=== PATIENT | female | born 1960 | race Caucasian/White ===

== ENCOUNTER 2020-06-07 12:13 | Observation (INO) ==
[2020-06-07] MEDS ORDERED: SODIUM CHLORIDE 0.9% 1000ML 1,000 ML IV ONE ×2 (12:47→14:25)
--- NOTE | 2020-06-07 13:09 | Emergency Department Note ---
Impression & Plan Acute hemorrhagic colitis, Acute dehydration, Nausea & vomiting, Hypokalemia ED Provider Note NAME: CAILIN JENNINGS AGE: 59 SEX: F : 1960 ARRIVES VIA: Walk-In INFORMANT: Patient ED PROVIDER(S): Trevor Mcbride DO CHIEF COMPLAINT: N/V/d HPI: Patient is a 59-year-old female who presents to the ER with nausea, vomiting, diarrhea and some dull achiness. All of her symptoms started around May 15. She notes she is going to the bathroom about 5-6 times a day. Is a very small amount at this time. Vomiting started about 2 weeks ago. She was seen in the ER and treated with Zofran and sent home. Previous history includes partial hysterectomy and appendectomy in the . She denies any recent trips or travel. No recent antibiotics with the exception of one back in March. No cough or runny nose. No chest pain or shortness of breath. No other exacerbating or remitting factors. Denies any dysuria urgency or frequency. When she is putting out about a half a teaspoon to a teaspoon of blood per bowel movement. She has vomited multiple times today. She believes she is only keeping down a small amount of liquids. ROS: See above HPI for pertinent positives & negatives. A total of 10 systems reviewed and were otherwise negative. PAST MEDICAL HISTORY:See Below PAST SURGICAL HISTORY:See Below FAMILY HISTORY:See Below SOCIAL HISTORY:See Below HOME MEDICATIONS:See Below ALLERGIES:See Below VITALS:See Below PHYSICAL EXAMINATION: GENERAL: Sitting up in bed, alert, well appearing, well nourished, no distress, non-toxic EYE EXAM: normal conjunctiva. OROPHARYNX: mask in place NECK: supple, no nuchal rigidity, no adenopathy, non-tender LUNGS: Clear to auscultation. Normal chest wall mechanics HEART: no murmurs, S1 normal and S2 normal ABDOMEN: abdomen soft, non-tender, normo-active bowel sounds, no masses, no rebound or guarding. UPPER EXTREMITIES: upper extremities are grossly normal. LOWER EXTREMITIES: No pitting edema. NEURO EXAM: Normal sensorium, cranial nerves II-XII grossly intact, normal speech, no gross weakness of arms, no gross weakness of legs. MEDICAL DECISION MAKING: Patient is a 59-year-old female who was seen here a week ago for nausea vomiting and diarrhea. She has been having blood in her stool. She had blood work done and CT abdomen pelvis which was fairly unremarkable with exception of a colitis. She had stool cultures which were negative. C. difficile was not performed. Vitals were stable. Patient was given IV fluids and IV Zofran. Labs today showed no significant leukocytosis or anemia. Platelets were elevated at 497. BMP with mild hypokalemia 2.8. Creatinine was appropriate. Bilirubin LFTs and lipase was unremarkable. UA was negative. was negative. Covid was negative. CT abdomen pelvis shows the colitis is persistent. Patient was given Phenergan as well as Zofran and IV fluids. She was updated bedside. She still is not feeling well. As she cannot keep anything down and this is a repeat visit do feel is reasonable to admit her at this time with the hemorrhagic colitis and unable to tolerate oral liquids. Patient was given IV potassium while in the ER for the hypokalemia. Triage Nursing notes reviewed. Prior medical records reviewed Vital Signs: reviewed and remarkable for tachy Differential diagnosis: Differential diagnoses includes but is not limited to gastritis, peptic ulcer disease, GERD, gallbladder disease, pancreatitis, small bowel obstruction, acute coronary syndrome, pericarditis, ischemic bowel, irritable bowel disease, irritable bowel syndrome, appendicitis, diverticulitis, malignancy, hernia, urinary tract infection, torsion, /ectopic (if female), perforation, trauma, infectious. ER treatment provided: See below Diagnostics interpreted by me: ECG: none Cardiac Monitoring: An order was placed for continuous cardiac monitoring. The monitor shows a rate of 110 with sinus rhythm. Laboratory studies: As stated above and show below. Imaging studies: CT angio of the abdomen pelvis shows no acute pathology with exception of a colitis Consultation(s): Discussed with hospitalist for further evaluation ED COURSE: Procedures: none Critical Care: None Past Med/Surg History Social History Smoking Status: Never smoker Feels Safe at Home: Yes Allergies Allergies Allergy/AdvReac Type Severity Reaction Status Date / Time Penicillins Allergy Intermediate POSSIBLE Unverified 06/07/20 14:03 ALLERGY Home Meds Previous Rx's Medication Instructions Recorded ondansetron 4 - 8 mg PO Q8H PRN #14 tab 06/01/20 Results & Data (ED) Vital Signs Vital Signs - 24 hr 06/07/20 12:35 06/07/20 13:18 12/06/20 14:14 Temperature 37.1 C Temperature Source Oral Pulse Rate 115 H Pulse Rate [Finger] 84 Pulse Rate from SpO2 Sensor Pulse Rhythm [Finger] Regular Pulse Strength [Finger] Normal Respiratory Rate 20 18 Respiratory Effort / Characteristics Non-Labored Spontaneous Non-Labored Spontaneous Respiratory Depth Normal Normal Respiratory Pattern Regular Regular Blood Pressure 124/87 Blood Pressure [Left Arm] 120/80 Blood Pressure Mean 99 Blood Pressure Mean [Left Arm] 93 Blood Pressure Position [Left Arm] Lying Pulse Oximetry 96 95 Oxygen Delivery Method Room Air Room Air Room Air Sepsis Recent Fever Within 48 Hours No Sepsis New/Unexplained Change in Mental Status N/A Sepsis Action Taken by Nursing No Action Required 06/07/20 14:39 06/07/20 14:42 06/07/20 14:50 Temperature Temperature Source Pulse Rate 83 85 84 Pulse Rate [Finger] Pulse Rate from SpO2 Sensor 84 85 84 Pulse Rhythm [Finger] Pulse Strength [Finger] Respiratory Rate 13 17 16 Respiratory Effort / Characteristics Respiratory Depth Respiratory Pattern Blood Pressure 127/87 Blood Pressure [Left Arm] Blood Pressure Mean 105 Blood Pressure Mean [Left Arm] Blood Pressure Position [Left Arm] Pulse Oximetry 96 97 97 Oxygen Delivery Method Room Air Room Air Room Air Sepsis Recent Fever Within 48 Hours Sepsis New/Unexplained Change in Mental Status Sepsis Action Taken by Nursing 06/07/20 15:00 06/07/20 15:01 06/07/20 15:10 Temperature Temperature Source Pulse Rate 85 89 86 Pulse Rate [Finger] Pulse Rate from SpO2 Sensor 85 89 86 Pulse Rhythm [Finger] Pulse Strength [Finger] Respiratory Rate 10 L 16 16 Respiratory Effort / Characteristics Respiratory Depth Respiratory Pattern Blood Pressure 126/83 Blood Pressure [Left Arm] Blood Pressure Mean 103 Blood Pressure Mean [Left Arm] Blood Pressure Position [Left Arm] Pulse Oximetry 98 97 97 Oxygen Delivery Method Room Air Room Air Room Air Sepsis Recent Fever Within 48 Hours Sepsis New/Unexplained Change in Mental Status Sepsis Action Taken by Nursing 06/07/20 15:20 06/07/20 15:30 06/07/20 15:31 Temperature Temperature Source Pulse Rate 86 82 82 Pulse Rate [Finger] Pulse Rate from SpO2 Sensor 86 81 82 Pulse Rhythm [Finger] Pulse Strength [Finger] Respiratory Rate 17 15 19 Respiratory Effort / Characteristics Respiratory Depth Respiratory Pattern Blood Pressure 118/77 Blood Pressure [Left Arm] Blood Pressure Mean 87 Blood Pressure Mean [Left Arm] Blood Pressure Position [Left Arm] Pulse Oximetry 98 96 95 Oxygen Delivery Method Room Air Room Air Room Air Sepsis Recent Fever Within 48 Hours Sepsis New/Unexplained Change in Mental Status Sepsis Action Taken by Nursing 06/07/20 15:40 06/07/20 15:52 06/07/20 16:00 Temperature Temperature Source Pulse Rate 82 88 81 Pulse Rate [Finger] Pulse Rate from SpO2 Sensor 82 81 Pulse Rhythm [Finger] Pulse Strength [Finger] Respiratory Rate 22 20 21 Respiratory Effort / Characteristics Respiratory Depth Respiratory Pattern Blood Pressure 126/85 Blood Pressure [Left Arm] Blood Pressure Mean 91 Blood Pressure Mean [Left Arm] Blood Pressure Position [Left Arm] Pulse Oximetry 98 95 Oxygen Delivery Method Room Air Room Air Room Air Sepsis Recent Fever Within 48 Hours Sepsis New/Unexplained Change in Mental Status Sepsis Action Taken by Nursing 06/07/20 16:01 Temperature Temperature Source Pulse Rate 88 Pulse Rate [Finger] Pulse Rate from SpO2 Sensor 85 Pulse Rhythm [Finger] Pulse Strength [Finger] Respiratory Rate 17 Respiratory Effort / Characteristics Respiratory Depth Respiratory Pattern Blood Pressure Blood Pressure [Left Arm] Blood Pressure Mean Blood Pressure Mean [Left Arm] Blood Pressure Position [Left Arm] Pulse Oximetry 95 Oxygen Delivery Method Room Air Sepsis Recent Fever Within 48 Hours Sepsis New/Unexplained Change in Mental Status Sepsis Action Taken by Nursing Laboratory Data Result diagrams: 06/07/20 13:10 06/07/20 13:10 Lab Results 06/07/20 06/07/20 Range/Units 13:10 13:10 WBC 10.65 (4.8-10.8) K/uL RBC 4.64 (4.2-5.4) M/uL Hgb 13.8 (12.0-16.0) g/dL Hct 39.7 (37-47) % MCV 85.6 (80-100) fL MCH 29.7 (25-34) pg MCHC 34.8 (32-36) g/dL RDW Std Deviation 38.9 (36.4-46.3) fL RDW Coeff of Crystal 12.4 (11.5-14.5) % Plt Count 497 H (130-400) K/uL MPV 9.9 (7.4-10.4) fL Immature Gran % (Auto) 0.4 % Neut % (Auto) 78.3 % Lymph % (Auto) 10.6 % [place] % (Auto) 10.0 % Eos % (Auto) 0.6 % Baso % (Auto) 0.1 % Neut # (Auto) 8.35 H (1.4-6.5) K/uL Lymph # (Auto) 1.13 L (1.2-3.4) K/uL [place] # (Auto) 1.06 H (0.11-0.59) K/uL Eos # (Auto) 0.06 (0-0.5) K/uL Baso # (Auto) 0.01 (0-0.2) K/uL Immature Gran # (Auto) 0.04 H (0.00-0.02) K/uL Sodium 135 L (136-145) mmol/L Potassium 2.8 L (3.5-5.1) mmol/L Chloride 95 L (98-107) mmol/L Carbon Dioxide 28 (21-32) mmol/L Anion Gap 12.0 H (3-11) BUN 7 (7-18) mg/dl Creatinine 0.73 (0.6-1.2) mg/dl Est Cr Clr Drug Dosing 75.9 ml/min Est GFR ( Amer) 104.5 Est GFR (Non-Af Amer) 90.1 BUN/Creatinine Ratio 9.7 L (10-20) Glucose 104 H (70-99) mg/dl Calcium 8.7 (8.5-10.1) mg/dl Total Bilirubin 0.4 (0.2-1) mg/dl AST 12 L (15-37) U/L ALT 15 (12-78) U/L Alkaline Phosphatase 72 (45-117) U/L Total Protein 7.7 (6.4-8.2) gm/dl Albumin 2.8 L (3.4-5.0) gm/dl Globulin 4.9 H (2.5-4.0) gm/dl Albumin/Globulin Ratio 0.6 L (0.9-2) Lipase 92 (73-393) U/L Administered Medications Discontinued Medications Sodium Chloride (Nss 1000ml) 1,000 mls @ 999 mls/hr IV .Q1H1M ONE Stop: 06/07/20 13:47 Last Infusion: 06/07/20 15:36 Dose: 0 mls/hr Documented by: [id number] Admin: 06/07/20 14:21 Dose: 999 mls/hr Documented by: [id number] Sodium Chloride (Nss 1000ml) 1,000 mls @ 999 mls/hr IV .Q1H1M ONE Stop: 06/07/20 15:25 Last Infusion: 06/07/20 16:30 Dose: 0 mls/hr Documented by: [id number] Admin: 06/07/20 15:00 Dose: 999 mls/hr Documented by: [id number] Promethazine HCl (Phenergan) 12.5 mg in 50.5 mls @ 202 mls/hr IV NOW STA Stop: 06/07/20 15:35 Last Infusion: 06/07/20 16:30 Dose: 0 mls/hr Documented by: [id number] Admin: 06/07/20 15:51 Dose: 202 mls/hr Documented by: [id number] Magnesium Sulfate/Dextrose (Magnesium Sulfate / D5w) 1 gm in 100 mls @ 100 mls/hr IV NOW STA Stop: 06/07/20 16:20 Last Infusion: 06/07/20 17:12 Dose: 0 mls/hr Documented by: [id number] Admin: 06/07/20 15:58 Dose: 100 mls/hr Documented by: [id number] Potassium Chloride (K Ryan / Wtr) 10 meq in 100 mls @ 100 mls/hr IV Q1H LAVERNE Stop: 06/07/20 17:29 Last Admin: 06/07/20 18:25 Dose: 100 mls/hr Documented by: [id number] Infusion: 06/07/20 18:24 Dose: 0 mls/hr Documented by: [id number] Admin: 06/07/20 17:18 Dose: 100 mls/hr Documented by: [id number] Ioversol (Optiray 320 125ml) 120 ml IV ONCE ONE Stop: 06/07/20 14:16 Last Admin: 06/07/20 14:15 Dose: 120 ml Documented by: [id number] Discharge Plan Visit Data Chief Complaint: Vomiting Stated Complaint: NOT ABLE TO EAT, VOMITING ED Provider: Trevor Mcbride Discharge Problem: Acute hemorrhagic colitis, Acute dehydration, Nausea & vomiting, Hypokalemia Patient Disposition: Admitted As Inpatient Discharge Instructions Interventions: ED Discharge Assessment Last Done: 06/07/20 18:56 Discharge Problem: Nausea & vomiting Qualifiers: Vomiting type: unspecified Vomiting Intractability: unspecified Qualified Code(s): R11.2 - Nausea with vomiting, unspecified
[2020-06-07 13:22] LABS: Basophils # (auto) 0.01 K/uL (0-0.2); Basophils % (auto) 0.1 %; Eosinophils # (auto) 0.06 K/uL (0-0.5); Eosinophils % (auto) 0.6 %; Hematocrit (blood only) 39.7 % (37-47); Hemoglobin 13.8 g/dL (12.0-16.0); Immature Granulocytes # (auto) 0.04 K/uL (0.00-0.02); Immature Granulocytes % (auto) 0.4 %; Lymphocytes # (auto) 1.13 K/uL (1.2-3.4); Lymphocytes % (auto) 10.6 %; Mean Corpuscular Hemoglobin 29.7 pg (25-34); Mean Corpuscular Hgb Conc 34.8 g/dL (32-36); Mean Corpuscular Volume 85.6 fL (80-100); Mean Platelet Volume 9.9 fL (7.4-10.4); Monocytes # (auto) 1.06 K/uL (0.11-0.59); Neutrophils # (auto) 8.35 K/uL (1.4-6.5); Neutrophils % (auto) 78.3 %; Platelet Count 497 K/uL (130-400); RDW Coefficient of Variation 12.4 % (11.5-14.5); RDW Standard Deviation 38.9 fL (36.4-46.3); Red Blood Count 4.64 M/uL (4.2-5.4); White Blood Count 10.65 K/uL (4.8-10.8)
[2020-06-07 13:39] LABS: Albumin Level 2.8 gm/dl (3.4-5.0); BUN Creatinine Ratio 9.7 (10-20); Calcium 8.7 mg/dl (8.5-10.1); Creatinine Clr Calc Pharmacy 75.9 ml/min; Est GFR (African American) 104.5; Est GFR (Non-African American) 90.1; Potassium 2.8 mmol/L (3.5-5.1)
[2020-06-07 13:42] LABS: Albumin Globulin Ratio 0.6 (0.9-2); Bilirubin,Total 0.4 mg/dl (0.2-1); Globulin 4.9 gm/dl (2.5-4.0); Total Protein 7.7 gm/dl (6.4-8.2)
[2020-06-07] MEDS ORDERED: OPTIRAY 320 125ml IV ONE (14:15)
--- NOTE | 2020-06-07 14:40 | CT Scan Report ---
CT angio abdomen pelvis w con CLINICAL HISTORY: Hemorrhagic colitis with persistent abdominal pain. COMPARISON STUDY: CT of the abdomen and pelvis June 01, 2020. TECHNIQUE: Helical axial images of the abdomen and pelvis were obtained during arterial phase followi ng intravenous injection of 120 cc Optiray 320 IV. Sagittal and coronal reconstructions were viewed a s well as maximal intensity projections on an independent 3-D workstation. Automated exposure control was utilized for the study. A dose lowering technique was utilized adhering to the principles of [place] IVETTE. FINDINGS: Lung bases are unremarkable. Bilateral breast implants are partially imaged. No pneumatosis , free air or portal venous gas is present. Arterial phase images of the liver, spleen, adrenal gland s and pancreas are unremarkable. There is no peripancreatic or pericholecystic infiltration. There is no biliary or pancreatic ductal dilatation. Note is made of a 2 mm calculus within lower pole of the right kidney. There is a right renal parapelvic cysts. There is no hydronephrosis. The appendix is n ot visualized. Note is made of persistent moderate wall thickening of the hepatic flexure of the colo n, transverse colon, descending colon, sigmoid colon and rectum. There is evidence for hyperemia. The re is mucosal hyperenhancement. Findings are similar to prior CT of June 01, 2020. No free air or abscess is present. The caliber of the abdominal aorta is normal. There is minimal plaque of the abd ominal aorta. Note is made of narrowing of the proximal celiac axis and the left gastric artery which arises from the abdominal aorta. 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 This finding is not acute. The bilateral renal arteries are patent. The superior mesenteric artery and inferior mesen teric artery are patent. The bilateral common iliac, external iliac and common femoral arteries are p atent. There is trace fluid within the pelvis. IMPRESSION: 1. Persistent moderate wall thickening and evidence for hyperemia involving the transverse colon, karla cending colon, sigmoid colon and rectum, similar to CT of June 01, 2020. This represents a nonspe cific proctocolitis. 2. Normal caliber abdominal aorta. Patent mesenteric vessels. 3. Moderate narrowing of the proximal celiac axis and left gastric artery which arises from the abdom inal aorta. This is due to the median arcuate ligament and is not acute. ACT 112: Negative or not required by law. Electronically signed by: Doni Joiner M.D. 06/07/2020 2:38 PM
[2020-06-07] MEDS ORDERED: MAGNESIUM SULFATE / D5W 1 GM/100 ML BAG IV STA (15:21)
[2020-06-07] MEDS ORDERED: PROMETHAZINE 12.5 MG/50.5 ML BAG IV STA (15:21)
--- NOTE | 2020-06-07 15:59 | History & Physical Report ---
Date of Service June 07, 2020 Assessment & Plan (1) Acute hemorrhagic colitis: Do not suspect ischemic colitis as CT angiogram abdomen/pelvis without stenoses. Stool cultures from 06/01 as well as ova and parasites are negative. C. difficile negative here. Could be IBD versus infectious cause. Is afebrile, no leukocytosis. - Admit to med tele for obs - Cont NSS + KCl 20 meq at 100 ml/hr x 1 d - Hgb stable at 13.8. was 13.5 on 06/01. - Consult GI - [facility], previously had colonoscopy by Dr. Zhong 4 years ago - Follow am labs for electrolytes - Cont compazine IV prn nausea; QTC is prolonged on ECG so will avoid Zofran for now - Repeat stool studies with stool culture, O&P, fecal leukocytes, cdiff was neg - Checking COVID stat with sx including significant abdominal c/o, as well as ddimer elevation. - CTA of the chest is negative from 06/01 after seeing an elevated Ddimer of 7580 (2) Nausea & vomiting: - Worsening, as above. 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 Follows here with [facility]. (6) Rheumatoid arthritis: - hx of such for > 5 years, not on any biological agents, or NSAIDS. - Does not follow with rheum as an outpatient (7) DVT prophylaxis: DVT ppx: - teds, scds, no chemical anticoagulation in setting of acute GI bleed CODE: Full Dispo: From home, likely to remain in the hospital x 1-2 days History of Present Illness Primary Care Provider: Blaire Lorenzo DO This is a 59 female with PMHx of history of DCIS in 2014 s/p bilateral mastectomies without chemo or xrt, rheumatoid arthritis, hx of hysterectomy d/t fibroid in 1987, appendectomy in 2004, another laparoscopic fibroid removal in 2004. Pt presented to the ER on 06/01/2020 for complaints of nausea, vomiting, diarrhea with BRBPR and was evaluated, but did not want to be admitted at that point in time. Her CT abdomen pelvis showed nonspecific colitis. She went home with p.o. Zofran and instructed to try a brat diet. She reports that she ran out of the Zofran, but when she got it refilled by the ER provider it was not under the tongue, and that this tablet was extremely foul tasting and she felt that this made her more nauseous. She has not been using that Zofran since being home. Since then she has not been feeling better, feels her nausea and vomiting is worse as well as having very poor p.o. intake. Feels weak, increasing fatigue. She reports she continues to have worsening abdominal complaints, and passes about 1 tablespoon of bright red blood with stools, which occurs on average 10x per day. Denies dark tarry stools of hematemesis. Denies NSAID or alcohol use, and takes no medication routinely, only Tylenol arthritis occasionally. Denies lightheadedness, dizziness, fever, chills, sweats. Patient lives at home with her . She denies any recent antibiotic use. Pt had colonoscopy about 4 years ago with [facility] by Dr. Zhong, at that time she remembers being told there was a large vessel in the colon that may have been a source of bleeding but no other abnormalities. Pt denies known COVID-19 exposure, fever, chills, respiratory symptoms. Patient reports she has had bright red blood per rectum off and on for many years, and occasionally has lower abdominal pains. She has never had anything like her current symptoms. Denies fevers/sweats/chills. She has lost 2 more kilograms of body weight since her ER visit 6 days ago. Her stool studies from last ER visit are all negative. C. difficile is negative here. Her potassium was quite low at 2.8, and sodium was mildly low at 135. Hemoglobin was normal at 13.8. Covid-[address] angiogram abdomen is without evidence of mesenteric stenoses, but again with colitis similar to previous. She will be admitted for intractable nausea/vomiting/diarrhea with bright red blood per rectum and colitis ongoing for 2 to 3 weeks, as well as hypokalemia. Allergies Allergy/AdvReac Type Severity Reaction Status Date / Time Penicillins Allergy Intermediate POSSIBLE Unverified 06/07/20 14:03 ALLERGY Home Medications Medication Instructions Recorded Confirmed Type ondansetron 4 - 8 mg PO Q8H PRN #14 tab 06/01/20 06/07/20 Rx Past Med/Surg History Medical History Breast cancer Fibroid tumor Surgical History H/O bilateral mastectomy H/O: hysterectomy History of appendectomy History of breast reconstruction Family History Mother Leukemia Breast cancer Father History of open heart surgery Brother Stroke Hypertension Social History Smoking Status: Never smoker Second Hand Exposure: No; Do You Dip or Chew Tobacco: No; Tobacco Cessation Education Requested by Patient: No Hx Alcohol Use: No Hx Substance Use: No Preferred Language: Yoruba Communication Ability: Effective [employer] C[employer] Farmer Required: No Beliefs That Will Affect Care: None Current Living Situation: Spouse Other Information That Helps Us Care for You: No Feels Safe at Home: Yes Safety Concerns: Feels Safe At This Time Assistive Devices: Apnea Monitor Review of Systems Review of Systems: Constitutional: No fever, sweats or chills Eyes: No diplopia, no worsening or blurred vision ENT: normal hearing, no trouble swallowing, + dry mouth Respiratory: No cough, sputum, dyspnea at rest or on exertion Cardiovascular: No chest pain, tightness or palpitations Abdomen: As per HPI. Musculoskeletal: No joint pain, calf pain, swelling Neurologic: +generalized weakness, no numbness/tingling, or balance problems Psychiatric: No anxiety or depression Skin: No rash or itch Physical Exam Physical Exam: General: awake, alert, no apparent distress, + fatigue Head: Normocephalic, atraumatic ENT: PERRL, EOMI, no pharyngeal exudate, +mucous membranes dry Chest: Clear to auscultation, on room air, no adventitious breath sounds Cardiac: Regular rate and rhythm, no murmur, no JVD, normal peripheral pulses, good capillary refill Abdominal: NABS x 4 quadrants, soft, nondistended,+ tender to palpation in LLQ, no rebound or guarding Extremities: Normal inspection, no peripheral edema or erythema, calfs nontender to palpation Psych: Normal mood and affect Neuro: AAO x 3, strength intact bilaterally and rated 5/5, no motor deficits, speech is clear, no peripheral sensory deficits Results & Data Results & Data ([facility]) Vital Signs (Past 12 Hours) Vital Signs Temp Pulse Pulse Resp BP BP Pulse Ox 06/07/20 14:14 84 18 120/80 95 06/07/20 12:35 37.1 C 115 H 20 124/87 96 Laboratory Results 06/07/20 06/07/20 06/07/20 Range/Units 20:12 20:12 20:12 WBC (4.8-10.8) K/uL RBC (4.2-5.4) M/uL Hgb (12.0-16.0) g/dL Hct (37-47) % MCV (80-100) fL MCH (25-34) pg MCHC (32-36) g/dL RDW Std Deviation (36.4-46.3) fL RDW Coeff of Crystal (11.5-14.5) % Plt Count (130-400) K/uL MPV (7.4-10.4) fL Immature Gran % (Auto) % Neut % (Auto) % Lymph % (Auto) % Alfalfa % (Auto) % Eos % (Auto) % Baso % (Auto) % Neut # (Auto) (1.4-6.5) K/uL Lymph # (Auto) (1.2-3.4) K/uL Alfalfa # (Auto) (0.11-0.59) K/uL Eos # (Auto) (0-0.5) K/uL Baso # (Auto) (0-0.2) K/uL Immature Gran # (Auto) (0.00-0.02) K/uL ESR (0-21) mm/hr Sodium (136-145) mmol/L Potassium (3.5-5.1) mmol/L Chloride (98-107) mmol/L Carbon Dioxide (21-32) mmol/L Anion Gap (3-11) BUN (7-18) mg/dl Creatinine (0.6-1.2) mg/dl Est Cr Clr Drug Dosing ml/min Est GFR ( Amer) Est GFR (Non-Af Amer) BUN/Creatinine Ratio (10-20) Glucose (70-99) mg/dl Lactate 1.0 (0.4-2.0) mmol/L Calcium (8.5-10.1) mg/dl Magnesium Cancelled (1.8-2.4) mg/dl Total Bilirubin (0.2-1) mg/dl AST (15-37) U/L ALT (12-78) U/L Alkaline Phosphatase (45-117) U/L C-Reactive Protein (0-0.29) mg/dl Total Protein (6.4-8.2) gm/dl Albumin (3.4-5.0) gm/dl Globulin (2.5-4.0) gm/dl Albumin/Globulin Ratio (0.9-2) Lipase (73-393) U/L Procalcitonin 0.19 (0-0.5) ng/ml Urine Color Urine Appearance (Clear) Urine pH (4.5-7.5) Ur Specific Gran[place] (1.000-1.030) Urine Protein (Negative) Urine Glucose (UA) (Negative) Urine Ketones (Negative) Urine Blood (Negative) Urine Nitrite (Negative) Urine Bilirubin (Negative) Urine Urobilinogen (Negative) Ur Leukocyte Esterase (Negative) POC Ur Test (NEG) COVID-19 Eval Order SARS-CoV-2, RNA, NAAT (NEGATIVE) 06/07/20 06/07/20 06/07/20 Range/Units 20:12 20:12 17:25 WBC (4.8-10.8) K/uL RBC (4.2-5.4) M/uL Hgb (12.0-16.0) g/dL Hct (37-47) % MCV (80-100) fL MCH (25-34) pg MCHC (32-36) g/dL RDW Std Deviation (36.4-46.3) fL RDW Coeff of Crystal (11.5-14.5) % Plt Count (130-400) K/uL MPV (7.4-10.4) fL Immature Gran % (Auto) % Neut % (Auto) % Lymph % (Auto) % Alfalfa % (Auto) % Eos % (Auto) % Baso % (Auto) % Neut # (Auto) (1.4-6.5) K/uL Lymph # (Auto) (1.2-3.4) K/uL Alfalfa # (Auto) (0.11-0.59) K/uL Eos # (Auto) (0-0.5) K/uL Baso # (Auto) (0-0.2) K/uL Immature Gran # (Auto) (0.00-0.02) K/uL ESR 15 (0-21) mm/hr Sodium (136-145) mmol/L Potassium (3.5-5.1) mmol/L Chloride (98-107) mmol/L Carbon Dioxide (21-32) mmol/L Anion Gap (3-11) BUN (7-18) mg/dl Creatinine (0.6-1.2) mg/dl Est Cr Clr Drug Dosing ml/min Est GFR ( Amer) Est GFR (Non-Af Amer) BUN/Creatinine Ratio (10-20) Glucose (70-99) mg/dl Lactate (0.4-2.0) mmol/L Calcium (8.5-10.1) mg/dl Magnesium 2.3 (1.8-2.4) mg/dl Total Bilirubin (0.2-1) mg/dl AST (15-37) U/L ALT (12-78) U/L Alkaline Phosphatase (45-117) U/L C-Reactive Protein 5.84 H (0-0.29) mg/dl Total Protein (6.4-8.2) gm/dl Albumin (3.4-5.0) gm/dl Globulin (2.5-4.0) gm/dl Albumin/Globulin Ratio (0.9-2) Lipase (73-393) U/L Procalcitonin (0-0.5) ng/ml Urine Color Urine Appearance (Clear) Urine pH (4.5-7.5) Ur Specific [place] (1.000-1.030) Urine Protein (Negative) Urine Glucose (UA) (Negative) Urine Ketones (Negative) Urine Blood (Negative) Urine Nitrite (Negative) Urine Bilirubin (Negative) Urine Urobilinogen (Negative) Ur Leukocyte Esterase (Negative) POC Ur Test (NEG) COVID-19 Eval Order SARS-CoV-2, RNA, NAAT NEGATIVE (NEGATIVE) 06/07/20 06/07/2020 Range/Units 17:25 17:20 17:20 WBC (4.8-10.8) K/uL RBC (4.2-5.4) M/uL Hgb (12.0-16.0) g/dL Hct (37-47) % MCV (80-100) fL MCH (25-34) pg MCHC (32-36) g/dL RDW Std Deviation (36.4-46.3) fL RDW Coeff of Crystal (11.5-14.5) % Plt Count (130-400) K/uL MPV (7.4-10.4) fL Immature Gran % (Auto) % Neut % (Auto) % Lymph % (Auto) % Alfalfa % (Auto) % Eos % (Auto) % Baso % (Auto) % Neut # (Auto) (1.4-6.5) K/uL Lymph # (Auto) (1.2-3.4) K/uL Alfalfa # (Auto) (0.11-0.59) K/uL Eos # (Auto) (0-0.5) K/uL Baso # (Auto) (0-0.2) K/uL Immature Gran # (Auto) (0.00-0.02) K/uL ESR (0-21) mm/hr Sodium (136-145) mmol/L Potassium (3.5-5.1) mmol/L Chloride (98-107) mmol/L Carbon Dioxide (21-32) mmol/L Anion Gap (3-11) BUN (7-18) mg/dl Creatinine (0.6-1.2) mg/dl Est Cr Clr Drug Dosing ml/min Est GFR ( Amer) Est GFR (Non-Af Amer) BUN/Creatinine Ratio (10-20) Glucose (70-99) mg/dl Lactate (0.4-2.0) mmol/L Calcium (8.5-10.1) mg/dl Magnesium (1.8-2.4) mg/dl Total Bilirubin (0.2-1) mg/dl AST (15-37) U/L ALT (12-78) U/L Alkaline Phosphatase (45-117) U/L C-Reactive Protein (0-0.29) mg/dl Total Protein (6.4-8.2) gm/dl Albumin (3.4-5.0) gm/dl Globulin (2.5-4.0) gm/dl Albumin/Globulin Ratio (0.9-2) Lipase (73-393) U/L Procalcitonin (0-0.5) ng/ml Urine Color Yellow Urine Appearance Clear (Clear) Urine pH 6.0 (4.5-7.5) Ur Specific [place] > 1.045 H (1.000-1.030) Urine Protein Negative (Negative) Urine Glucose (UA) Negative (Negative) Urine Ketones 4+ H (Negative) Urine Blood Negative (Negative) Urine Nitrite Negative (Negative) Urine Bilirubin Negative (Negative) Urine Urobilinogen Negative (Negative) Ur Leukocyte Esterase Negative (Negative) POC Ur Test NEG (NEG) COVID-19 Eval Order Covid19 IDNow [facility] SARS-CoV-2, RNA, NAAT (NEGATIVE) 06/07/20 06/07/20 Range/Units 13:10 13:10 WBC 10.65 (4.8-10.8) K/uL RBC 4.64 (4.2-5.4) M/uL Hgb 13.8 (12.0-16.0) g/dL Hct 39.7 (37-47) % MCV 85.6 (80-100) fL MCH 29.7 (25-34) pg MCHC 34.8 (32-36) g/dL RDW Std Deviation 38.9 (36.4-46.3) fL RDW Coeff of Crystal 12.4 (11.5-14.5) % Plt Count 497 H (130-400) K/uL MPV 9.9 (7.4-10.4) fL Immature Gran % (Auto) 0.4 % Neut % (Auto) 78.3 % Lymph % (Auto) 10.6 % Alfalfa % (Auto) 10.0 % Eos % (Auto) 0.6 % Baso % (Auto) 0.1 % Neut # (Auto) 8.35 H (1.4-6.5) K/uL Lymph # (Auto) 1.13 L (1.2-3.4) K/uL Alfalfa # (Auto) 1.06 H (0.11-0.59) K/uL Eos # (Auto) 0.06 (0-0.5) K/uL Baso # (Auto) 0.01 (0-0.2) K/uL Immature Gran # (Auto) 0.04 H (0.00-0.02) K/uL ESR (0-21) mm/hr Sodium 135 L (136-145) mmol/L Potassium 2.8 L (3.5-5.1) mmol/L Chloride 95 L (98-107) mmol/L Carbon Dioxide 28 (21-32) mmol/L Anion Gap 12.0 H (3-11) BUN 7 (7-18) mg/dl Creatinine 0.73 (0.6-1.2) mg/dl Est Cr Clr Drug Dosing 75.9 ml/min Est GFR ( Amer) 104.5 Est GFR (Non-Af Amer) 90.1 BUN/Creatinine Ratio 9.7 L (10-20) Glucose 104 H (70-99) mg/dl Lactate (0.4-2.0) mmol/L Calcium 8.7 (8.5-10.1) mg/dl Magnesium (1.8-2.4) mg/dl Total Bilirubin 0.4 (0.2-1) mg/dl AST 12 L (15-37) U/L ALT 15 (12-78) U/L Alkaline Phosphatase 72 (45-117) U/L C-Reactive Protein (0-0.29) mg/dl Total Protein 7.7 (6.4-8.2) gm/dl Albumin 2.8 L (3.4-5.0) gm/dl Globulin 4.9 H (2.5-4.0) gm/dl Albumin/Globulin Ratio 0.6 L (0.9-2) Lipase 92 (73-393) U/L Procalcitonin (0-0.5) ng/ml Urine Color Urine Appearance (Clear) Urine pH (4.5-7.5) Ur Specific [place] (1.000-1.030) Urine Protein (Negative) Urine Glucose (UA) (Negative) Urine Ketones (Negative) Urine Blood (Negative) Urine Nitrite (Negative) Urine Bilirubin (Negative) Urine Urobilinogen (Negative) Ur Leukocyte Esterase (Negative) POC Ur Test (NEG) COVID-19 Eval Order SARS-CoV-2, RNA, NAAT (NEGATIVE) Diagnostic Findings CT angio abdomen pelvis w con CLINICAL HISTORY: Hemorrhagic colitis with persistent abdominal pain. COMPARISON STUDY: CT of the abdomen and pelvis June 01, 2020. TECHNIQUE: Helical axial images of the abdomen and pelvis were obtained during arterial phase following intravenous injection of 120 cc Optiray 320 IV. Sagittal and coronal reconstructions were viewed as well as maximal intensity projections on an independent 3-D workstation. Automated exposure control was utilized for the study. A dose lowering technique was utilized adhering to the principles of ALARA. FINDINGS: Lung bases are unremarkable. Bilateral breast implants are partially imaged. No pneumatosis, free air or portal venous gas is present. Arterial phase images of the liver, spleen, adrenal glands and pancreas are unremarkable. There is no peripancreatic or pericholecystic infiltration. There is no biliary or pancreatic ductal dilatation. Note is made of a 2 mm calculus within lower pole of the right kidney. There is a right renal parapelvic cysts. There is no hydronephrosis. The appendix is not visualized. Note is made of persistent moderate wall thickening of the hepatic flexure of the colon, transverse colon, descending colon, sigmoid colon and rectum. There is evidence for hyperemia. There is mucosal hyperenhancement. Findings are similar to prior CT of June 01, 2020. No free air or abscess is present. The caliber of the abdominal aorta is normal. There is minimal plaque of the abdominal aorta. Note is made of sarbjit rowing of the proximal celiac axis and the left gastric artery which arises from the abdominal aorta. 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 This finding is not acute. The bilateral renal arteries are patent. The superior mesenteric artery and inferior mesenteric artery are patent. The bilateral common iliac, external iliac and common femoral arteries are patent. There is trace fluid within the pelvis. IMPRESSION: 1. Persistent moderate wall thickening and evidence for hyperemia involving the transverse colon, descending colon, sigmoid colon and rectum, similar to CT of June 01, 2020. This represents a nonspecific proctocolitis. 2. Normal caliber abdominal aorta. Patent mesenteric vessels. 3. Moderate narrowing of the proximal celiac axis and left gastric artery which arises from the abdominal aorta. This is due to the median arcuate ligament and is not acute. ACT 112: Negative or not required by law. ECG Additional Comments: Test Reason : Blood Pressure : / mmHG Vent. Rate : 091 BPM Atrial Rate : 091 BPM P-R Int : 160 ms QRS Dur : 086 ms QT Int : 372 ms P-R-T Axes : 063 055 049 degrees QTc Int : 457 ms Normal sinus rhythm Normal ECG When compared with ECG of 08-JAN-2015 10:31, T wave amplitude has decreased in Lateral leads Code Status & VTE Plan Code Status Full Code - discussed with the pt at bedside Supervising Physician Co-Signing Physician Notes PA Supervision Note: I personally saw and examined the patient. I verified all grayson points and agree with WALLY Donato with the following exceptions and/or additions: Patient is a 59-year-old female with history of rheumatoid arthritis not on therapy, breast cancer status post bilateral mastectomy without any chemo or radiation, who presents to the ER for the second time in 2 and half weeks with intractable nausea/vomiting/diarrhea with bright red blood per rectum. She reports symptoms came on several days after cleaning out an old shed where she did find a flying squirrel and lots of squirrel droppings. She has been unable to keep any food down for over 2 weeks and feels very rundown. Denies fevers or chills or sweats. She is having a teaspoonful of blood with every bowel movement at least 10 times per day. Denies any abdominal pains. She reports many years of intermittent bright red blood per rectum. Had a colonoscopy 4 years ago that showed what sounds like an AVM. No history of inflammatory bowel disease personally or in her family. History and ROS reviewed as above Vitals reviewed Gen: AAOx3, NAD HEENT: Anicteric sclerae, EOMI CV: RRR no mgr nl S1S2 Pulm: CTAB no wcr Abd: +BS soft NT ND no masses or hernias Ext: No edema, 2+ DP pulses Skin: No rashes, warm/dry Neuro: Full strength throughout Laboratory values reviewed ECG obtained which shows sinus rhythm, normal rate, QTC 495, no ischemic changes CT abdomen/pelvis reviewed 59-year-old female here with colitis, intractable nausea/vomiting/diarrhea and. Blood per rectum, dehydration and hypokalemia -Continue supportive care with IV fluids, potassium replacement Repeat stool studies Appreciate GI consultation-to see if needs EGD/colonoscopy Question if has later presentation of IBD versus infectious colitis Not likely be ischemic as CTA is normal as far as the vessels go If develops fevers, would check blood cultures Will not start steroids or antibiotics at this time -Check ESR, CRP, lactate PG Care Time/CCT Total # of Minutes Spent Total Time Spent with Patient: Total time spent is greater than 50% in coordination of care (as documented) at patient's floor/unit and/or counseling patient: Coding Level of Care Code 17212 OBS Care - Level 3 Diagnoses Acute hemorrhagic colitis K52.9 Nausea & vomiting R11.2 Hypokalemia E87.6 Acute dehydration E86.0 DCIS (ductal carcinoma in situ) D05.10 Rheumatoid arthritis M06.9 DVT prophylaxis Z29.9
[2020-06-07] MEDS: POTASSIUM CHLORIDE / WTR 10 MEQ/100 ML PLCT IV SCH ×4 (17:18→22:05)
[2020-06-07 17:35] LABS: Appearance Urine Clear (Clear); Bilirubin Urine Negative (Negative); Blood Urine Negative (Negative); Color Urine Yellow; Glucose Urine UA Negative (Negative); Ketones Urine 4+ (Negative); Leukocyte Esterase Urine Negative (Negative); Nitrite Urine Negative (Negative); Protein Urine Negative (Negative); Specific Gravity Urine > 1.045 (1.000-1.030); Urobilinogen Urine Negative (Negative)
[2020-06-07] MEDS ORDERED: ONDANSETRON INJ 2 MG/ML 2 ML VIAL IV PRN (19:23)
[2020-06-07] MEDS ORDERED: ACETAMINOPHEN 325 MG TAB PO PRN (19:23)
[2020-06-07] MEDS ORDERED: ONDANSETRON 4 MG OD TAB PO PRN (19:26)
[2020-06-07] MEDS: PROCHLORPERAZINE 10 MG in SYRINGE 8 ML IV PRN (20:20)
[2020-06-07 20:39] LABS: C Reactive Protein 5.84 mg/dl (0-0.29)
[2020-06-07 20:55] LABS: Magnesium 2.3 mg/dl (1.8-2.4)
[2020-06-08] MEDS: POTASSIUM CHLORIDE / WTR 10 MEQ/100 ML PLCT IV SCH ×3 (00:23→12:24)
[2020-06-08] MEDS: NSS + 20MEQ KCL 20 MEQ/1,000 ML BAG IV SCH ×4 (01:39→21:52)
[2020-06-08 07:31] LABS: Hematocrit (blood only) 34.5 % (37-47); Hemoglobin 11.6 g/dL (12.0-16.0); Mean Corpuscular Hemoglobin 29.1 pg (25-34); Mean Corpuscular Hgb Conc 33.6 g/dL (32-36); Mean Corpuscular Volume 86.7 fL (80-100); Mean Platelet Volume 9.7 fL (7.4-10.4); Platelet Count 446 K/uL (130-400); RDW Coefficient of Variation 12.6 % (11.5-14.5); Red Blood Count 3.98 M/uL (4.2-5.4); White Blood Count 11.43 K/uL (4.8-10.8)
[2020-06-08 08:03] LABS: Albumin Level 2.3 gm/dl (3.4-5.0); BUN Creatinine Ratio 9.1 (10-20); Calcium 7.9 mg/dl (8.5-10.1); Est GFR (Non-African American) 105.3; Magnesium 2.1 mg/dl (1.8-2.4); Potassium 3.1 mmol/L (3.5-5.1)
[2020-06-08 08:06] LABS: Albumin Globulin Ratio 0.6 (0.9-2); Bilirubin,Total 0.6 mg/dl (0.2-1); Phosphorus 2.1 mg/dl (2.5-4.9); Total Protein 6.3 gm/dl (6.4-8.2)
[2020-06-08] MEDS: PROCHLORPERAZINE 10 MG in SYRINGE 8 ML IV PRN ×2 (08:45→17:21)
[2020-06-08] MEDS ORDERED: POTASSIUM PHOS 3 MMOL/1 ML INFUSION IV STA (09:07)
--- NOTE | 2020-06-08 09:15 | Electrocardiogram Report ---
Test Reason : Blood Pressure : / mmHG Vent. Rate : 085 BPM Atrial Rate : 085 BPM P-R Int : 162 ms QRS Dur : 088 ms QT Int : 416 ms P-R-T Axes : 069 068 048 degrees QTc Int : 495 ms Normal sinus rhythm Prolonged QT Abnormal ECG When compared with ECG of 01-JUN-2020 00:09, No significant change was found Confirmed by Fritz Raphael ([id number]) on 06/08/2020 9:14:49 AM Referred By: REFERRED SELF Confirmed By:Fritz Raphael
[2020-06-08] MEDS ORDERED: POTASSIUM PHOSPHATE 6 MMOL in 0.9 % SODIUM CHLORIDE 100 ML IV ONE (09:30)
--- NOTE | 2020-06-08 10:22 | Gastrointestinal Consultation ---
Date of Consultation June 08, 2020 Assessment & Plan (1) Acute hemorrhagic colitis: (2) Nausea & vomiting: Pt is a 59 y/o female seen for n/v, diarrhea and rectal bleeding ; CT w signs of non specific proctocolitis.Cdiff negative, stool cx pending. Suspect possible ischemic colitis. - CL diet today; NPO after midnight for EGD and Colonoscopy evals on 06/09. Colonoscopy bowel prep ordered - F/U stool cx - Symptomatic management w antiemetics & antidiarrhea prn Supervising Physician Co-Signing Physician Notes I saw and evaluated the patient. She reports having approximately 4 to 6 weeks of intermittent bright red blood per rectum associate with nausea and emesis. She has been to the emergency room on 2 occasions in the past week for further evaluation. Of note her CT does show evidence of inflammatory changes in the left colon Physical exam No obvious distress Mild epigastric tenderness Impression: Patient presenting with nausea vomiting and recurrent hematochezia. Given the multiple presentations over the past few weeks perhaps it would be reasonable to proceed with upper endoscopy and colonoscopy as an inpatient. Based on the CT I wonder if she may have underlying ischemic colitis however this would be unusual given the time course of her symptoms History of Present Illness Reason for Consultation: Colitis, BRBPR Requesting Physician: Dr. Jem Dhillon Attending Physician: Dr. Lukas Hanks History of Present Illness Pt is a 59 y/o female who had been to ED couple of times this week for c/o n/v, diarrhea and BRBPR. She reports having rectal bleeding for over a month w/o much abd pain symptoms. Having associated poor PO intake. Every time she tries to eat, she would vomit. Using Zofran at home on prn basis. + diarrhea w negative Cdiff, stool cx pending. + mild leukocytosis, LFTs, lipase normal. CT abd/pelvis showed persistent moderate wall thickening and evidence for hyperemia involving the transverse colon, descending colon, sigmoid colon and rectum, similar to CT of June 01, 2020. This represents a nonspecific proctocolitis. Mesenteric vessels are patent. + Moderate narrowing of proximal celiac axis and L gastric artery due to median arcuate ligament but not acute. Last colonoscopy was in 2016 - int hemorrhoids She denies NSAIDs, ETOH Allergies Allergy/AdvReac Type Severity Reaction Status Date / Time Penicillins Allergy Intermediate POSSIBLE Unverified 06/07/20 14:03 ALLERGY Home Medications Medication Instructions Recorded Confirmed Type ondansetron 4 - 8 mg PO Q8H PRN #14 tab 06/01/20 06/07/20 Rx Patient History Medical History Breast cancer Fibroid tumor Surgical History H/O bilateral mastectomy H/O: hysterectomy History of appendectomy History of breast reconstruction Family History Mother Leukemia Breast cancer Father History of open heart surgery Brother Stroke Hypertension Social History Smoking Status: Never smoker Second Hand Exposure: No; Do You Dip or Chew Tobacco: No; Tobacco Cessation Education Requested by Patient: No Hx Alcohol Use: No Hx Substance Use: No Preferred Language: Mongolian Communication Ability: 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 Beliefs That Will Affect Care: None Current Living Situation: Spouse Other Information That Helps Us Care for You: No Feels Safe at Home: Yes Safety Concerns: Feels Safe At This Time Assistive Devices: Apnea Monitor Review of Systems Review of Systems: All systems reviewed & are unremarkable except as noted in HPI & below Physical Exam Constitutional: WD/WN, vitals as above well groomed, cooperative and comfortable Eyes: PERRL, conjunctivae normal, anicteric sclerae ENMT: external ear and nose normal, oropharynx normal Respiratory: normal respiratory effort, lungs clear to auscultation Cardiovascular: RRR, no murmur, no edema Gastrointestinal (Abdomen): normal bowel sounds, soft, nontender, no hepatosplenomegaly Skin: no rashes, warm and dry Psychiatric: A+Ox3, euthymic affect Lymphatic: no lymphedema Results & [facility]) Vital Signs (Past 12 Hours) Vital Signs Temp Pulse Resp BP Pulse Ox 06/08/20 07:49 37.3 C 84 18 119/79 94 06/07/20 23:15 37.2 C 80 15 104/69 93 (1) Nausea & vomiting Vomiting Intractability: unspecified Vomiting type: unspecified Qualified Code(s): R11.2 - Nausea with vomiting, unspecified
[2020-06-08] MEDS ORDERED: ONDANSETRON INJ 2 MG/ML 2 ML VIAL IV PRN (12:44)
--- NOTE | 2020-06-08 13:57 | Hospitalist Progress Note ---
Date of Service June 08, 2020 Assessment & Plan (1) Acute hemorrhagic colitis: CT a/p Persistent moderate wall thickening and evidence for hyperemia involving the transverse colon, descending colon, sigmoid colon and rectum, similar to CT of June 01, 2020. This represents a nonspecific proctocolitis. Stool cultures from 06/01 as well as ova and parasites are negative. C. difficile negative here. Is afebrile, no leukocytosis. - Cont NSS + KCl 20 meq at 100 ml/hr - Hgb stable at 13.8. was 13.5 on 06/01 - hgb decreased today to 11.6 but this may be partially dilutional - Anion gap 12, bicarb is 20 - lactic acid on admission was normal - repeat prp am - Consult GI - [place], previously had colonoscopy by Dr. Zhong 4 years ago - Cont compazine IV prn nausea; QTC is prolonged on ECG so will avoid Zofran for now - Repeat stool studies with stool culture, O&P, fecal leukocytes, cdiff was neg - COVID negative - CTA of the chest is negative from 06/01 after seeing an elevated Ddimer of 7580 - GI consulted - patient to have EGD/colonoscopy tomorrow. (2) Nausea & vomiting: - Ongoing, as above (3) Hypokalemia: 3.1 today with low phos - replaced with IV supplementation. 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 Follows here with [facility]. (6) Rheumatoid arthritis: - hx of such for > 5 years, not on any biological agents, or NSAIDS. - Does not follow with rheum as an outpatient (7) Thyroid nodule: As seen on chest CT 06/01 - follow with pcp (8) Pulmonary nodule: As seen on CT 06/01 - follow with pcp (9) DVT prophylaxis: DVT ppx: - teds, scds, no chemical anticoagulation in setting of acute GI bleed CODE: Full Dispo: From home, likely to remain in the hospital x 1-2 days Admission and Anticipated Discharge Date Admission Date: June 07, 2020 Subjective Ms. Isbell continues to be nauseas. She did have a bloody bowel movement this morning. She does not think she will be able to complete the bowel prep for tomorrow due to her nausea. She has no abdominal pain Review of Systems Review of Systems: Constitutional: No fever, sweats or chills Respiratory: No cough, sputum, dyspnea at rest or on exertion Cardiovascular: No chest pain, tightness or palpitations Abdomen: As per HPI. Musculoskeletal: No joint pain, calf pain, swelling Neurologic: no numbness/tingling, or balance problems Psychiatric: No anxiety or depression Skin: No rash or itch Physical Exam Physical Exam: General: no distress Eyes: normal inspection, PERLL Respiratory: chest non tender, clear to auscultation, normal breath sounds, no respiratory distress, no accessory muscle use Cardiac: regular rate and rhythm, no rub or gallop, no murmur, no edema, no jvd GI/: active bowel sounds, no abd pain or tenderness, soft, non distended Extremities: normal range of motion, normal strength, non tender Neuro/Psych: alert and oriented x 3, normal mood and affect Skin: normal color, dry Results & Data Results & Data ([facility]) Vital Signs (Past 12 Hours) Vital Signs Temp Pulse Resp BP Pulse Ox 06/08/20 07:49 37.3 C 84 18 119/79 94 PG Care Time/CCT Total # of Minutes Spent Total Time Spent with Patient: Total time spent is greater than 50% in coordination of care (as documented) at patient's floor/unit and/or counseling patient: Coding Level of Care Code 06940 Subseq Obs Care Lvl 3 Diagnoses Acute hemorrhagic colitis K52.9 Nausea & vomiting R11.2 Vomiting Intractability: unspecified Vomiting type: unspecified Hypokalemia E87.6 Acute dehydration E86.0 DCIS (ductal carcinoma in situ) D05.10 Rheumatoid arthritis M06.9 Thyroid nodule E04.1 Pulmonary nodule R91.1 DVT prophylaxis Z29.9 (1) Nausea & vomiting Vomiting Intractability: unspecified Vomiting type: unspecified Qualified Code(s): R11.2 - Nausea with vomiting, unspecified
[2020-06-08] MEDS ORDERED: POLYETHYLENE (MIRALAX) 17 GM PACK PO ONE ×2 (17:00→21:00)
[2020-06-08] MEDS ORDERED: bisacodyL 5 MG TABEC PO ONE (17:00)
[2020-06-08] MEDS ORDERED: ACETAMINOPHEN SUSP 1000 MG/31.2 ML UDP PO PRN (21:09)
[2020-06-09] MEDS: PROCHLORPERAZINE 10 MG in SYRINGE 8 ML IV PRN ×2 (00:13→08:49)
[2020-06-09 06:59] LABS: Hematocrit (blood only) 32.9 % (37-47); Hemoglobin 11.1 g/dL (12.0-16.0); Mean Corpuscular Hemoglobin 28.8 pg (25-34); Mean Corpuscular Hgb Conc 33.7 g/dL (32-36); Mean Corpuscular Volume 85.5 fL (80-100); Mean Platelet Volume 10.1 fL (7.4-10.4); Platelet Count 434 K/uL (130-400); RDW Coefficient of Variation 12.7 % (11.5-14.5); RDW Standard Deviation 40.2 fL (36.4-46.3); Red Blood Count 3.85 M/uL (4.2-5.4); White Blood Count 9.46 K/uL (4.8-10.8)
[2020-06-09 07:24] LABS: Albumin Level 2.2 gm/dl (3.4-5.0); BUN Creatinine Ratio 3.4 (10-20); Calcium 8.1 mg/dl (8.5-10.1); Creatinine Clr Calc Pharmacy 125.8 ml/min; Est GFR (African American) 127.1; Est GFR (Non-African American) 109.7; Potassium 2.8 mmol/L (3.5-5.1)
[2020-06-09] MEDS: NSS + 20MEQ KCL 20 MEQ/1,000 ML BAG IV SCH (07:25)
[2020-06-09 07:27] LABS: Albumin Globulin Ratio 0.6 (0.9-2); Bilirubin,Total 0.5 mg/dl (0.2-1); Globulin 3.8 gm/dl (2.5-4.0)
[2020-06-09] MEDS ORDERED: LIDOCAINE 2% 2 ML VIAL/AMP(20MG/ML) INFIL ONE ×2 (08:16→12:14)
[2020-06-09] MEDS ORDERED: PROPOFOL IV EMULSION 10 MG/ML 20 ML VIAL IV ONE ×2 (08:16→12:14)
[2020-06-09] MEDS ORDERED: POTASSIUM CHLORIDE 40 MEQ in SODIUM CHLORIDE 0.9% 1000ML 1,000 ML IV SCH (08:30)
[2020-06-09] MEDS ORDERED: POTASSIUM CHLORIDE / WTR 10 MEQ/100 ML PLCT IV ONE (08:31)
--- NOTE | 2020-06-09 08:40 | Anesthesiology Consultation ---
Date of Service June 09, 2020 Assessment & Plan (1) Encounter for pre-operative examination: Chart Review Chart Review: Acceptable Risk for Surgery and Patient NOT seen in Pre Admission Testing Consults Requested none Additional Notes Patient with hypokalemia (2.8) requiring repletion prior to anesthesia. Patient to start k riders immediately on the floor - hope to have 2 bags of K in prior to planned anesthetic if possible. Pt has had nausea, but no emesis since yesterday. Pt will require GA in main OR in the event that she has any episodes of emesis today. Pt to get compazine up on the floor as ordered and scheduled by her hospitalist. Of note, patient has a prolonged QT and is receiving compaz ine and therefore we will need to avoid other QT prolonging agents, especially in conjunction with her hypokalemia. History Surgery Operation Date: 06/09/20 08:30 Proposed Procedures p Colonoscopy EGD Dr Demario Hanks, DO Height/Weight Height: 5 ft 4 in Weight: 66 kg Allergies Allergy/AdvReac Type Severity Reaction Status Date / Time Penicillins Allergy Intermediate POSSIBLE Unverified 06/07/20 14:03 ALLERGY Medications Home Medications Medication Instructions Recorded Confirmed Last Taken ondansetron 4 - 8 mg PO Q8H PRN #14 tab 06/01/20 06/07/20 06/05/20 4 mg Active Medications Generic Name Dose Route Start Last Admin Trade Name Freq PRN Reason Stop Dose Admin Prochlorperazine 10 mg/ 10 mls @ 5 mls/min 06/07/20 19:23 06/09/20 00:13 Syringe IV 07/07/20 19:22 5 mls/min Q8H PRN Administration Nausea And Vomiting NPO Date Last Intake of Fluids: 06/08/20 Time Last Intake of Fluids: 23:59 Date Last Intake of Solids: 05/19/20 Time Last Intake of Solids: 09:30 Past Medical History Medical History Breast cancer Fibroid tumor Past Family History Family History Mother Leukemia Breast cancer Father History of open heart surgery Brother Stroke Hypertension Past Surgical History Surgical History H/O bilateral mastectomy H/O: hysterectomy History of appendectomy History of breast reconstruction Social History Smoking Status: Never smoker Do You Dip or Chew Tobacco: No Hx Alcohol Use: No Hx Substance Use: No substance use type: does not use Physical Exam Vital Signs Last Vital Signs Temp 37.3 C 06/09/20 08:08 Pulse 96 H 06/09/20 08:08 Resp 18 06/09/20 08:08 BP 151/93 H 06/09/20 08:08 Pulse Ox 95 06/09/20 08:08 Testing Laboratory Results 06/09/20 06:07 06/09/20 06:07 Urine Color Yellow 06/07/20 17:20 Urine Appearance Clear (Clear) 06/07/20 17:20 Urine pH 6.0 (4.5-7.5) 06/07/20 17:20 Ur Specific [place] > 1.045 (1.000-1.030) H 06/07/20 17:20 Urine Protein Negative (Negative) 06/07/20 17:20 Urine Glucose (UA) Negative (Negative) 06/07/20 17:20 Urine Ketones 4+ (Negative) H 06/07/20 17:20 Urine Nitrite Negative (Negative) 06/07/20 17:20 Ur Leukocyte Esterase Negative (Negative) 06/07/20 17:20 06/08/20 05:55 WBC Smear - Final Stool 06/07/20 17:20 POC Ur Test NEG
[2020-06-09] MEDS: POTASSIUM CHLORIDE / WTR 10 MEQ/100 ML PLCT IV SCH ×4 (08:49→13:46)
--- NOTE | 2020-06-09 10:49 | History & Physical Bridge Note ---
Date of Service June 09, 2020 History & Physical Bridge Note I have examined the patient, reviewed the History & Physical and in the interval since the performance of the History & Physical I have noted the following changes of clinical significance: no changes noted
[2020-06-09] MEDS ORDERED: KETAMINE 50 MG/5 ML SYRINGE ONE (11:25)
--- NOTE | 2020-06-09 12:14 | Communication Note ---
Date of Service: June 09, 2020 The patient underwent upper endoscopy and colonoscopy today. The upper endoscopy was notable for small hiatal hernia and mild gastritis. The colonoscopy was notable for inflammatory changes starting in the rectum extending to the hepatic flexure of the transverse colon. The findings are most reminiscent of ulcerative colitis. Recommendations C. difficile and stool culture be obtained during today's exam Biopsies pending Advance to a liquid diet today Begin [place] steroids, would start Solu-Medrol 3 times daily once patient is improving we will transition her to an oral steroid
--- NOTE | 2020-06-09 12:19 | GI REPORT ---
Patient Name: Shivani Isbell Procedure Date: 06/09/2020 10:59 AM Date of : 1960 Admit Type: Inpatient Age: 59 Gender: Female Attending MD: Lukas Hanks DO Procedure: Upper GI endoscopy Providers: Lukas Hanks DO Referring MD: Jem Dhillon Indications: Nausea with vomiting Medicines: Monitored Anesthesia Care Complications: No immediate complications. Estimated blood loss: Minimal. Estimated Blood Loss: Estimated blood loss was minimal. Procedure: Pre-Anesthesia Assessment: - Prior to the procedure, a History and Physical was performed, and patient medications, allergies and sensitivities were reviewed. The patient's tolerance of previous anesthesia was reviewed. - The risks and benefits of the procedure and the sedation options and risks were discussed with the patient. All questions were answered and informed consent was obtained. - Patient identification and proposed procedure were verified prior to the procedure by the physician, the nurse and the ice cream van vendor. The procedure was verified in the procedure room. - Pre-procedure physical examination revealed no contraindications to sedation. - ASA Grade Assessment: III - A patient with severe systemic disease. - After reviewing the risks and benefits, the patient was deemed in satisfactory condition to undergo the procedure. - The anesthesia plan was to use monitored anesthesia care (MAC). - Immediately prior to administration of medications, the patient was re-assessed for adequacy to receive sedatives. - The heart rate, respiratory rate, oxygen saturations, blood pressure, adequacy of pulmonary ventilation, and response to care were monitored throughout the procedure. - The physical status of the patient was re-assessed after the procedure. After obtaining informed consent, the endoscope was passed under direct vision. Throughout the procedure, the patient's blood pressure, pulse, and oxygen saturations were monitored continuously. The Colonoscope was introduced through the mouth, and advanced to the operative stoma of duodenum. The upper GI endoscopy was accomplished without difficulty. The patient tolerated the procedure well. Findings: The examined esophagus was normal. A small hiatal hernia was found. The proximal extent of the gastric folds (end of tubular esophagus) was 36 cm from the incisors. The hiatal narrowing was 38 cm from the incisors. The Z-line was 36 cm from the incisors. Diffuse mild inflammation characterized by congestion (edema), erythema and granularity was found in the entire examined stomach. Biopsies were taken with a cold forceps for histology. The pathology specimen was placed into Bottle B. Estimated blood loss was minimal. The examined duodenum was normal. Biopsies were taken with a cold forceps for histology. The pathology specimen was placed into Bottle A. Estimated blood loss was minimal. Impression: - Normal esophagus. - Small hiatal hernia. - Gastritis. Biopsied. - Normal examined duodenum. Biopsied. Recommendation: - Perform a colonoscopy today. - Await pathology results. Lukas Hanks D.O. Lukas Hanks, 06/09/2020 12:18:53 PM This report has been signed electronically. Note Initiated On: 06/09/2020 10:59 AM Number of Addenda: 0 I attest to the content of the Intraoperative Record and orders documented therein, exceptions below {[id number]}
--- NOTE | 2020-06-09 12:23 | GI REPORT ---
Patient Name: Shivani Isbell Procedure Date: 06/09/2020 10:58 AM Date of : 1960 Admit Type: Inpatient Age: 59 Gender: Female Attending MD: Lukas Hanks DO Procedure: Colonoscopy Providers: Lukas Hanks DO Referring MD: Jem Dhillon Indications: Hematochezia, Chronic diarrhea Medicines: Monitored Anesthesia Care Complications: No immediate complications. Estimated blood loss: Minimal. Estimated Blood Loss: Estimated blood loss was minimal. Procedure: Pre-Anesthesia Assessment: - Prior to the procedure, a History and Physical was performed, and patient medications, allergies and sensitivities were reviewed. The patient's tolerance of previous anesthesia was reviewed. - The risks and benefits of the procedure and the sedation options and risks were discussed with the patient. All questions were answered and informed consent was obtained. - Patient identification and proposed procedure were verified prior to the procedure by the physician, the nurse and the biofuels operations manager. The procedure was verified in the procedure room. - Pre-procedure physical examination revealed no contraindications to sedation. - ASA Grade Assessment: III - A patient with severe systemic disease. - After reviewing the risks and benefits, the patient was deemed in satisfactory condition to undergo the procedure. - The anesthesia plan was to use monitored anesthesia care (MAC). - Immediately prior to administration of medications, the patient was re-assessed for adequacy to receive sedatives. - The heart rate, respiratory rate, oxygen saturations, blood pressure, adequacy of pulmonary ventilation, and response to care were monitored throughout the procedure. - The physical status of the patient was re-assessed after the procedure. After I obtained informed consent, the scope was passed under direct vision. Throughout the procedure, the patient's blood pressure, pulse, and oxygen saturations were monitored continuously. The Colonoscope was introduced through the anus and advanced to the cecum, identified by appendiceal orifice and ileocecal valve. The colonoscopy was performed without difficulty. The patient tolerated the procedure well. The quality of the bowel preparation was fair. Findings: Hemorrhoids were found on perianal exam. Inflammation characterized by altered vascularity, congestion (edema), friability, granularity and serpentine ulcerations was found in a continuous and circumferential pattern from the rectum to the hepatic flexure. The ascending colon and the cecum were spared. This was moderate in severity, and when compared to previous examinations, the findings are new. Fluid aspiration was performed through an aspiration catheter. Sample(s) were sent for bacterial cultures and Clostridium difficile. Biopsies were taken with a cold forceps for histology. The pathology specimen was placed into Bottle C,(right colon), D (Transverse colon) and E (left colon). Estimated blood loss was minimal. Impression: - Preparation of the colon was fair. - Hemorrhoids found on perianal exam. - Pancolitis ulcerative colitis. Inflammation was found from the rectum to the hepatic flexure. This was moderate in severity, new compared to previous examinations. Fluid aspiration performed. Biopsied. Recommendation: - The patient will be observed post-procedure, until all discharge criteria are met. - Full liquid diet today. - Await pathology results. Lukas Hanks D.O. Lukas Hanks, 06/09/2020 12:22:42 PM This report has been signed electronically. Note Initiated On: 06/09/2020 10:58 AM Number of Addenda: 0 I attest to the content of the Intraoperative Record and orders documented therein, exceptions below {[id number]}
--- NOTE | 2020-06-09 13:03 | Hospitalist Progress Note ---
Date of Service June 09, 2020 Assessment & Plan (1) Acute hemorrhagic colitis: CT a/p Persistent moderate wall thickening and evidence for hyperemia involving the transverse colon, descending colon, sigmoid colon and rectum, similar to CT of June 01, 2020. This represents a nonspecific proctocolitis. Stool cultures from 06/01 as well as ova and parasites are negative. C. difficile negative here. Mild fever 06/08 - BC obtained - Hgb stable at 13.8. was 13.5 on 06/01 - hgb decreased today to 11.6 but this may be partially dilutional - Cont compazine IV prn nausea; QTC is prolonged on ECG so will avoid Zofran for now - COVID negative - CTA of the chest is negative from 06/01 after seeing an elevated Ddimer of 7580 - GI consulted - EGD/ colonoscopy 06/09 - mild gastritis on EGD, colonoscopy showing likely UC - biopsies obtained. 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 Follows here [place] [facility]. (6) Rheumatoid arthritis: - hx of such for > 5 years, not on any biological agents, or NSAIDS. - Does not follow with rheum as an outpatient (7) Thyroid nodule: As seen on chest CT 06/01 - follow with pcp (8) Pulmonary nodule: As seen on CT 06/01 - follow with pcp (9) DVT prophylaxis: DVT ppx: - teds, scds, no chemical anticoagulation in setting of acute GI bleed CODE: Full Dispo: From home, likely to remain in the hospital x 1-2 more days Admission and Anticipated Discharge Date Admission Date: June 07, 2020 Subjective Ms. Isbell continues to be nauseas. She was unable to complete her prep for her colonoscopy today. No abdominal pain. Continues to have liquid bowel movements with blood Review of Systems Constitutional: no fever, no chills and no body aches Respiratory: no cough and no dyspnea Cardiovascular: no chest pain and no palpitations Gastrointestinal: as per Subjective / HPI Genitourinary: no dysuria and no urinary hesitancy Musculoskeletal: no back pain and no joint pain Integumentary: no rash Physical Exam Physical Exam: General: no distress Eyes: normal inspection, PERLL Respiratory: chest non tender, clear to auscultation, normal breath sounds, no respiratory distress, no accessory muscle use Cardiac: regular rate and rhythm, no rub or gallop, no murmur, no edema, no jvd GI/: active bowel sounds, no abd pain or tenderness, soft, non distended Extremities: normal range of motion, normal strength, non tender Neuro/Psych: alert and oriented x 3, normal mood and affect Skin: normal color, dry Results & Data Results & Data ([facility]) Vital Signs (Past 12 Hours) Vital Signs Temp Pulse Resp BP Pulse Ox 06/09/20 12:35 82 16 150/95 H 95 06/09/20 12:20 86 16 152/96 H 96 06/09/20 10:44 37.0 C 93 H 16 135/80 96 06/09/20 08:08 37.3 C 96 H 18 151/93 H 95 06/09/20 07:34 36.9 C 93 H 16 119/74 94 PG Care Time/CCT Total # of Minutes Spent Total Time Spent with Patient: Total time spent is greater than 50% in coordination of care (as documented) at patient's floor/unit and/or counseling patient: Coding Level of Care Code 95654 Subseq Hosp Care Lvl 2 Diagnoses Acute hemorrhagic colitis K52.9 Nausea & vomiting R11.2 Vomiting Intractability: unspecified Vomiting type: unspecified Hypokalemia E87.6 Acute dehydration E86.0 DCIS (ductal carcinoma in situ) D05.10 Rheumatoid arthritis M06.9 Thyroid nodule E04.1 Pulmonary nodule R91.1 DVT prophylaxis Z29.9 (1) Nausea & vomiting Vomiting Intractability: unspecified Vomiting type: unspecified Qualified Code(s): R11.2 - Nausea with vomiting, unspecified
--- NOTE | 2020-06-09 13:37 | Anesthesiology Progress Note ---
Date of Service June 09, 2020 Anesthesia Post Procedure Vital Signs Vital Signs: Temp Pulse Resp BP Pulse Ox 06/09/20 12:35 82 16 150/95 H 95 06/09/20 12:20 86 16 152/96 H 96 06/09/20 10:44 37.0 C 93 H 16 135/80 96 06/09/20 08:08 37.3 C 96 H 18 151/93 H 95 06/09/20 07:34 36.9 C 93 H 16 119/74 94 06/08/20 23:40 37.3 C 86 16 111/75 94 06/08/20 21:05 37.8 C H 06/08/20 17:11 37.9 C H 91 H 18 118/75 95 Transfer of Care Handoff Completed per policy Notes Mental Status: alert / awake / arousable and participated in evaluation Nausea / Vomiting: adequately controlled Pain: adequately controlled Airway Patency, RR, SpO2: stable & adequate BP & HR: stable & adequate Hydration State: stable & adequate Anesthetic Complications: no major complications apparent and Pt Satisfied with anesthetic care
[2020-06-09] MEDS: methylPREDNISolone 20 MG in SYRINGE 0 ML IV SCH ×2 (13:56→21:42)
[2020-06-09] MEDS ORDERED: LORazepam 0.25 MG/0.5 ML VIAL IV ONE (14:45)
[2020-06-09] MEDS: PANTOprazole 40 MG in SYRINGE 0 ML IV SCH (15:04)
[2020-06-09] MEDS ORDERED: LORazepam 0.25 MG/0.5 ML VIAL IV PRN (17:23)
[2020-06-10] MEDS: methylPREDNISolone 20 MG in SYRINGE 0 ML IV SCH ×3 (05:30→22:05)
[2020-06-10] MEDS: PROCHLORPERAZINE 10 MG in SYRINGE 8 ML IV PRN ×2 (05:31→17:18)
[2020-06-10 05:59] LABS: Hematocrit (blood only) 31.2 % (37-47); Hemoglobin 10.5 g/dL (12.0-16.0); Mean Corpuscular Hgb Conc 33.7 g/dL (32-36); Mean Corpuscular Volume 86.2 fL (80-100); Mean Platelet Volume 9.6 fL (7.4-10.4); Platelet Count 431 K/uL (130-400); RDW Coefficient of Variation 12.8 % (11.5-14.5); RDW Standard Deviation 40.7 fL (36.4-46.3); Red Blood Count 3.62 M/uL (4.2-5.4); White Blood Count 8.86 K/uL (4.8-10.8)
[2020-06-10 06:23] LABS: Albumin Level 2.1 gm/dl (3.4-5.0); BUN Creatinine Ratio 6.5 (10-20); Calcium 7.8 mg/dl (8.5-10.1); Creatinine Clr Calc Pharmacy 141.6 ml/min; Est GFR (African American) 132.1; Potassium 3.1 mmol/L (3.5-5.1)
[2020-06-10 06:26] LABS: Albumin Globulin Ratio 0.6 (0.9-2); Bilirubin,Total 0.4 mg/dl (0.2-1); Globulin 3.8 gm/dl (2.5-4.0); Total Protein 5.9 gm/dl (6.4-8.2)
[2020-06-10] MEDS ORDERED: POTASSIUM CHLORIDE 40 MEQ in SODIUM CHLORIDE 0.9% 1000ML 1,000 ML IV SCH (08:30)
--- NOTE | 2020-06-10 09:50 | Gastroenterology Progress Note ---
Date of Service June 10, 2020 Assessment & Plan (1) Acute hemorrhagic colitis: (2) Nausea & vomiting: Pt is a 59 y/o female seen for n/v, diarrhea and rectal bleeding ; CT w signs of non specific proctocolitis.Cdiff negative, stool cx pending. Suspect possible ischemic colitis. EGD/Colonoscopy done on 06/09 showed gastritis and signs of pancolitis ulcerative colitis. She was started on IV steroids and symptomatically feeling better - still some loose stools but no abd pain, n/v, or rectal bleeding - Protonix 40mg daily - Methylprednisone 20mg IV q8hrs. Upon DC convert to Prednisone taper: 40mg daily x 5 days, 30mg daily x 5 days, 20mg daily x 5 days, 15mg daily x 5 days, 10mg daily x 5 days, 5mg daily x 5 days then stop. Also will give trial of Lialda 4.8g daily, but if need escalation of therapy will consider Entyvio instead of Humira/Remicade given malignancy risk (pt has hx of breast ca) - F/U stool cx & CMV staining on path - Diet advanced to regular ; anticipate possible DC tomorrow if continues to do well. Admission and Anticipated Discharge Date Admission Date: June 09, 2020 Supervising Physician Co-Signing Physician Notes The patient reports feeling improved today. She was started on intravenous steroids yesterday afternoon after she was found to have findings consistent with ulcerative colitis. Plan Advance diet as tolerated Continue with intravenous steroids for another 24 hours If patient continues to improve we will likely discharge her on a prednisone taper perhaps tomorrow Begin Lialda 4.8 g/day Patient will likely need an outpatient biologic such as Entyvio given her prior history of breast cancer Subjective Pt reports feeling well. Does still have loose stools but denies any more abd pain, n/v or rectal bleeding. Wants to try solid foods Review of Systems Review of Systems: All systems reviewed & are unremarkable except as noted in HPI & below Physical Exam Constitutional: WD/WN, vitals as above well groomed, cooperative and comfortable Eyes: PERRL, conjunctivae normal, anicteric sclerae ENMT: external ear and nose normal, oropharynx normal Respiratory: normal respiratory effort, lungs clear to auscultation Cardiovascular: RRR, no murmur, no edema Gastrointestinal (Abdomen): normal bowel sounds, soft, nontender, no hepatosplenomegaly Skin: no rashes, warm and dry Psychiatric: A+Ox3, euthymic affect Lymphatic: no lymphedema Results & Data ([facility]) Vital Signs (Past 12 Hours) Vital Signs Temp Pulse Resp BP Pulse Ox 06/10/20 07:55 37.1 C 80 14 107/68 95 06/09/20 23:43 36.9 C 79 16 103/65 95 (1) Nausea & vomiting Vomiting Intractability: unspecified Vomiting type: unspecified Qualified Code(s): R11.2 - Nausea with vomiting, unspecified
[2020-06-10] MEDS: PANTOprazole 40 MG in SYRINGE 0 ML IV SCH (11:03)
--- NOTE | 2020-06-10 12:48 | Hospitalist Progress Note ---
Date of Service June 10, 2020 Assessment & Plan (1) Acute hemorrhagic colitis: CT a/p Persistent moderate wall thickening and evidence for hyperemia involving the transverse colon, descending colon, sigmoid colon and rectum, similar to CT of June 01, 2020. This represents a nonspecific proctocolitis. Stool cultures from 06/01 as well as ova and parasites are negative. C. difficile negative here. Mild fever 06/08 - BC obtained - Hgb stable at 13.8. was 13.5 on 06/01 - hgb decreased today to 10.5 but this may be partially dilutional - Cont compazine IV prn nausea; QTC is prolonged on ECG so will avoid Zofran for now. Given a dose of lorazepam yesterday for nausea which helped, will have available prn. - COVID negative - CTA of the chest is negative from 06/01 after seeing an elevated Ddimer of 7580 - GI consulted - EGD/ colonoscopy 06/09 - mild gastritis on EGD, colonoscopy showing likely UC - biopsies obtained. 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 Follows here with [facility]. (6) Rheumatoid arthritis: - hx of such for > 5 years, not on any biological agents, or NSAIDS. - Does not follow with rheum as an outpatient (7) Thyroid nodule: As seen on chest CT 06/01 - follow with pcp (8) Pulmonary nodule: As seen on CT 06/01 - follow with pcp (9) DVT prophylaxis: DVT ppx: - teds, scds, no chemical anticoagulation as this is the first day patient is not seeing blood in her stool and her hgb has dropped about 3g since admission. Encouraged ambulation CODE: Full Dispo: From home, likely to discharge tomorrow if tolerating po Admission and Anticipated Discharge Date Admission Date: June 09, 2020 Supervising Physician Co-Signing Physician Notes chart reviewed and case d/w S Patsy TODD. agree w above Subjective Ms. Wisor is feeling better today, she was able to eat solid food, no nausea or vomiting. She is not seeing blood in her stools today. Review of Systems Constitutional: no fever, no chills and no body aches Respiratory: no cough and no dyspnea Cardiovascular: no chest pain and no palpitations Gastrointestinal: no abdominal pain and no early satiety Genitourinary: no dysuria and no urinary hesitancy Musculoskeletal: no back pain and no joint pain Integumentary: no rash Physical Exam Physical Exam: General: no distress Eyes: normal inspection, PERLL Respiratory: chest non tender, clear to auscultation, normal breath sounds, no respiratory distress, no accessory muscle use Cardiac: regular rate and rhythm, no rub or gallop, no murmur, no edema, no jvd GI/: active bowel sounds, no abd pain or tenderness, soft, non distended Extremities: normal range of motion, normal strength, non tender Neuro/Psych: alert and oriented x 3, normal mood and affect Skin: normal color, dry Results & Data Results & Data ([facility]) Vital Signs (Past 12 Hours) Vital Signs Temp Pulse Resp BP Pulse Ox 06/10/20 07:55 37.1 C 80 14 107/68 95 PG Care Time/CCT Total # of Minutes Spent Total Time Spent with Patient: Total time spent is greater than 50% in coordination of care (as documented) at patient's floor/unit and/or counseling patient: Coding Level of Care Code 55409 Subseq Hosp Care Lvl 2 Diagnoses Acute hemorrhagic colitis K52.9 Nausea & vomiting R11.2 Vomiting Intractability: unspecified Vomiting type: unspecified Hypokalemia E87.6 Acute dehydration E86.0 DCIS (ductal carcinoma in situ) D05.10 Rheumatoid arthritis M06.9 Thyroid nodule E04.1 Pulmonary nodule R91.1 DVT prophylaxis Z29.9 (1) Nausea & vomiting Vomiting Intractability: unspecified Vomiting type: unspecified Qualified Code(s): R11.2 - Nausea with vomiting, unspecified
[2020-06-11] MEDS: PROCHLORPERAZINE 10 MG in SYRINGE 8 ML IV PRN (05:14)
[2020-06-11] MEDS: methylPREDNISolone 20 MG in SYRINGE 0 ML IV SCH (05:14)
[2020-06-11 06:26] LABS: Hematocrit (blood only) 30.8 % (37-47); Hemoglobin 10.2 g/dL (12.0-16.0); Mean Corpuscular Hemoglobin 28.8 pg (25-34); Mean Corpuscular Hgb Conc 33.1 g/dL (32-36); Mean Platelet Volume 9.8 fL (7.4-10.4); Platelet Count 439 K/uL (130-400); RDW Standard Deviation 42.1 fL (36.4-46.3); Red Blood Count 3.54 M/uL (4.2-5.4); White Blood Count 8.19 K/uL (4.8-10.8)
[2020-06-11 06:52] LABS: BUN Creatinine Ratio 8.4 (10-20); Calcium 7.9 mg/dl (8.5-10.1); Creatinine Clr Calc Pharmacy 128.7 ml/min; Est GFR (African American) 128.1; Est GFR (Non-African American) 110.5; Potassium 3.1 mmol/L (3.5-5.1)
--- NOTE | 2020-06-11 08:38 | Gastroenterology Progress Note ---
Date of Service June 11, 2020 Assessment & Plan (1) Acute hemorrhagic colitis: (2) Nausea & vomiting: Pt is a 59 y/o female seen for n/v, diarrhea and rectal bleeding ; CT w signs of non specific proctocolitis.Cdiff negative, stool cx pending. Suspect possible ischemic colitis. EGD/Colonoscopy done on 06/09 showed gastritis and signs of pancolitis ulcerative colitis. She was started on IV steroids and symptomatically feeling better - still some loose stools & much less rectal bleeding but no abd pain, n/v. - Protonix 40mg daily - Methylprednisone 20mg IV q8hrs. Upon DC convert to Prednisone taper: 40mg daily x 5 days, 30mg daily x 5 days, 20mg daily x 5 days, 15mg daily x 5 days, 10mg daily x 5 days, 5mg daily x 5 days then stop. - No contraindication for DC home from GI standpoint. On DC please place her on Lialda 4.8g daily & steroid taper as above. Will make pt f/u GI appt in about 2- 3 week's time and if need escalation of therapy will consider Entyvio instead of Humira/Remicade given malignancy risk (pt has hx of breast ca) Admission and Anticipated Discharge Date Admission Date: June 09, 2020 Supervising Physician Co-Signing Physician Notes I saw and evaluated the patient, she notes that she feels significantly improved over the last 48 hours since starting steroids for her ulcerative colitis. At this point it is probably reasonable to have the patient discharged. She will follow-up with our office in 4 to 6 weeks, continue the steroid taper as outlined above. Depending on her response to steroids and use of mesalamine we would consider further use of a biologic such as Entyvio given her prior history of breast cancer Subjective Pt still having some loose stools but significantly less amt of bleeding. Denies abd pain, n/v. Tolerating solids Review of Systems Review of Systems: All systems reviewed & are unremarkable except as noted in HPI & below Physical Exam Constitutional: WD/WN, vitals as above well groomed, cooperative and comfortable Eyes: PERRL, conjunctivae normal, anicteric sclerae ENMT: external ear and nose normal, oropharynx normal Respiratory: normal respiratory effort, lungs clear to auscultation Cardiovascular: RRR, no murmur, no edema Gastrointestinal (Abdomen): normal bowel sounds, soft, nontender, no hepatosplenomegaly Skin: no rashes, warm and dry Psychiatric: A+Ox3, euthymic affect Lymphatic: no lymphedema Results & Data ([facility]) Vital Signs (Past 12 Hours) Vital Signs Temp Pulse Resp BP Pulse Ox 06/11/20 07:22 37.2 C 74 14 105/69 94 06/10/20 23:07 37.2 C 81 14 105/65 96 (1) Nausea & vomiting Vomiting Intractability: unspecified Vomiting type: unspecified Qualified Code(s): R11.2 - Nausea with vomiting, unspecified
[2020-06-11] MEDS ORDERED: POTASSIUM CHLORIDE CRTAB 20 MEQ TABCR PO ONE (08:45)
--- NOTE | 2020-06-11 10:12 | Discharge Summary ---
Date of Service June 11, 2020 Admission HPI Per Admitting Provider This is a 59 female with PMHx of history of DCIS in 2015 s/p bilateral mastectomies without chemo or xrt, rheumatoid arthritis, hx of hysterectomy d/t fibroid in 1987, appendectomy in 2004, another laparoscopic fibroid removal in 2004. Pt presented to the ER on 06/01/2020 for complaints of nausea, vomiting, diarrhea with BRBPR and was evaluated, but did not want to be admitted at that point in time. Her CT abdomen pelvis showed nonspecific colitis. She went home with p.o. Zofran and instructed to try a brat diet. She reports that she ran out of the Zofran, but when she got it refilled by the ER provider it was not under the tongue, and that this tablet was extremely foul tasting and she felt that this made her more nauseous. She has not been using that Zofran since being home. Since then she has not been feeling better, feels her nausea and vomiting is worse as well as having very poor p.o. intake. Feels weak, increasing fatigue. She reports she continues to have worsening abdominal complaints, and passes about 1 tablespoon of bright red blood with stools, which occurs on average 10x per day. Denies dark tarry stools of hematemesis. Denies NSAID or alcohol use, and takes no medication routinely, only Tylenol arthritis occasionally. Denies lightheadedness, dizziness, fever, chills, sweats. Patient lives at home with her . She denies any recent antibiotic use. Pt had colonoscopy about 4 years ago with [facility] by Dr. Zhong, at that time she remembers being told there was a large vessel in the colon that may have been a source of bleeding but no other abnormalities. Pt denies known COVID-19 exposure, fever, chills, respiratory symptoms. Patient reports she has had bright red blood per rectum off and on for many years, and occasionally has lower abdominal pains. She has never had anything like her current symptoms. Denies fevers/sweats/chills. She has lost 2 more kilograms of body weight since her ER visit 6 days ago. Her stool studies from last ER visit are all negative. C. difficile is negative here. Her potassium was quite low at 2.8, and sodium was mildly low at 135. Hemoglobin was normal at 13.8. Covid-[address] angiogram abdomen is without evidence of mesenteric stenoses, but again with colitis similar to previous. She will be admitted for intractable nausea/vomiting/diarrhea with bright red blood per rectum and colitis ongoing for 2 to 3 weeks, as well as hypokalemia. Principal Diagnosis Colitis Discharge Exam Constitutional WD/WN, vitals as above Respiratory normal respiratory effort, lungs clear to auscultation Cardiovascular RRR, no murmur, no edema Gastrointestinal (Abdomen) normal bowel sounds, soft, nontender, no hepatosplenomegaly Musculoskeletal no cyanosis or clubbing, extremities motor strength 5/5 Skin no rashes, warm and dry Neurologic moves all extremities and awake Psychiatric A+Ox3, euthymic affect Discharge Data Allergies Allergy/AdvReac Type Severity Reaction Status Date / Time Penicillins Allergy Intermediate POSSIBLE Verified 06/09/20 10:52 ALLERGY Consultations 06/07/20 15:22 ED Decision to Admit Stat 06/07/20 19:23 Consult Case Management - Discharge Planning Routine Consult Gastroenterology Routine Procedures Performed Operation Date: 06/09/20 08:30 Actual Procedures p EGD Biopsy Cytology - Lukas Hanks DO s Colonoscopy Biopsy Cytology - Lukas Hanks DO Ordered Studies 06/07/20 12:50 CT angio abdomen pelvis w con Stat Hospital Course (1) Acute hemorrhagic colitis: Likely ulcerative colitis CT a/p Persistent moderate wall thickening and evidence for hyperemia involving the transverse colon, descending colon, sigmoid colon and rectum, similar to CT of June 01, 2020. This represents a nonspecific proctocolitis. Stool cultures from 06/01 as well as ova and parasites are negative. C. difficile negative here. Mild fever 06/08 - BC no growth after 48 hours - Hgb stable at 13.8. was 13.5 on 06/01 - hgb decreased over her stay to 10.2 but this may be partially dilutional as she was dehydrated from poor po intake on admission. She said she is only seeing "specks" of blood in her stool at this point - Cont compazine prn nausea; QTC is prolonged on ECG so will avoid Zofran for now. - COVID negative - CTA of the chest is negative from 06/01 after seeing an elevated Ddimer of 7580 - GI consulted - EGD/ colonoscopy 06/09 - mild gastritis on EGD, colonoscopy showing likely UC - biopsies obtained. Solu-medrol IV and then prednisone taper, Lialda, Protonix for home (2) Nausea & vomiting: - Ongoing, as above (3) Hypokalemia: 3.1 today - replaced Will give patient 20 mEq daily x 7 days for home as her appetite improves with the resolution of vomiting, and encouraged increasing high potassium foods. 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 Follows here [facility]. GI will avoid Humira if patient requires escalation medication for UC (6) Rheumatoid arthritis: - hx of such for > 5 years, not on any biological agents, or NSAIDS. - Does not follow with rheum as an outpatient (7) Thyroid nodule: As seen on chest CT 06/01 - follow with pcp (8) Pulmonary nodule: As seen on CT 06/01 - follow with pcp (9) DVT prophylaxis: DVT ppx: - teds, scds, no chemical anticoagulation as this is the first day patient is not seeing blood in her stool and her hgb has dropped about 3g since admission. Encouraged ambulation Total Time Total Time Spent Total Time Spent (In Minutes): greater than 30 minutes Discharge Plan Discharge Items Patient Disposition: Home - Self-Care Reason For Visit: COLITIS Discharge Diagnosis: Colitis Activity: Resume your previous activity Driving/Machine Use: avoid driving when taking prochlorperazine Non-emergency contact: Primary Care Provider Call non-emergency contact if: you have any medication questions and your symptoms worsen Follow-up/Referrals: Blaire Lorenzo DO [Primary Care Provider] - 06/17/20 1:40 pm (follow up one week ) Maryana Asif CRNP [Nurse Practitioner] - (Follow up within 2 weeks ) Diet: Regular Addtl Attending Provider Instructions: (1) Acute hemorrhagic colitis: The CT of your abdomen/pelvis showed a nonspecific proctocolitis. Stool cultures from 06/01 as well as ova and parasites are negative. C. difficile negative. You had a colonoscopy and endoscopy which showed likely ulcerative colitis and gastritis respectively. Biopsies are pending. -You can continue taking prochlorperazine every 8 hours as needed for nausea. We have avoided giving you ondansetron (Zofran) due to a slightly long QT segment of your EKG as Zofran can make this worse which is a risk for dysrhythmia. -You will start Lialda (mesalamine) and continue a prednisone taper for the likely diagnosis of ulcerative colitis given the findings on your colonoscopy. The taper is as follows: 40mg daily x 5 days, 30mg daily x 5 days, 20mg daily x 5 days, 15mg daily x 5 days, 10mg daily x 5 days, 5mg daily x 5 days then stop. -Continue pantoprazole for the gastritis (2) Hypokalemia (low potassium): Your potassium is likely low due to reduced oral intake. I will give you a week of daily potassium supplementation as your appetite recovers. Try to increase the amount of potassium you are getting in your diet. (3) You had some incidental findings on your CT scan on 06/01 that you should follow up with your pcp. They may want to rescan to monitor down the line. You had a small thyroid nodule and a pulmonary nodule Pending Studies at Discharge: Yes Studies:: biopsies Stand-Alone [facility]: [facility]id [facility], Work/School Release (Inpt), Smoking Cessation Medications and DC Order Prescriptions: New prochlorperazine maleate [Compazine] 10 mg tablet 10 mg PO Q8H PRN (Reason: nausea and vomiting) Qty: 21 RF: 0 mesalamine [Lialda] 1.2 gram tablet,delayed release (DR/EC) 4.8 g PO DAILY 56 Days Qty: 224 RF: 1 prednisone 10 mg tablet 10 mg PO DAILY Qty: 60 RF: 0 pantoprazole 40 mg tablet,delayed release (DR/EC) 40 mg PO DAILY Qty: 30 RF: 1 potassium chloride 20 mEq packet 20 meq PO DAILY Qty: 7 RF: 0 Discontinued ondansetron 4 mg tablet,disintegrating 4 - 8 mg PO Q8H PRN (Reason: nausea and vomiting) Qty: 14 RF: 0 Discharge Orders: Discharge Order (Routine); Ordered 06/11/20 Ordered By: Ashely Vance/Other Patient Handouts: Understanding Colitis, ED Potassium-Rich Foods Admission Data Admit Date/Time: 06/09/20 12:59 Attending Provider: Trevor North Admit Provider: Alma Weber Primary Care Provider: Blaire Lorenzo Other Providers: Grace Cheema ; Bonnie Zhong ; Jem Dhillon Other Interventions: Discharge Summary Assessment (RN) Last Done: 06/11/20 10:55 Supervising Physician Co-Signing Physician Notes I personally examined the patient and verified all grayson points of history and exam, discussed case, and agree with decision making with S Patsy TODD feeling better feeling up to going home. belly pain better eating OK vitals noted nad heent nc at mmm abd soft nd nt no masses IBD flare - now improved. home on steroid taper, meds as above, GI f/u. Coding Level of Care Code D/C Day Management >30 mins Diagnoses Acute hemorrhagic colitis K52.9 Nausea & vomiting R11.2 Vomiting Intractability: unspecified Vomiting type: unspecified Hypokalemia E87.6 Acute dehydration E86.0 DCIS (ductal carcinoma in situ) D05.10 Rheumatoid arthritis M06.9 Thyroid nodule E04.1 Pulmonary nodule R91.1 DVT prophylaxis Z29.9
[2020-06-11] MEDS: PANTOprazole 40 MG in SYRINGE 0 ML IV SCH (11:12)
== END 2020-06-11 11:54 | disposition home or self-care (01) | DRG 386 ==
LOC: 3W 12:13 → ED 12:13 → SUATTDRO 16:05 → 3W 18:56 → SUATTDRO 06-09 12:59

== ENCOUNTER 2020-06-13 19:09 | Inpatient (IN) ==
[2020-06-13] MEDS ORDERED: ONDANSETRON INJ 2 MG/ML 2 ML VIAL IV STA (19:33)
[2020-06-13] MEDS ORDERED: SODIUM CHLORIDE 0.9% 1000ML 1,000 ML IV SCH (19:45)
--- NOTE | 2020-06-13 19:51 | Emergency Department Note ---
History of Present Illness General Chief complaint: Vomiting Stated complaint: VOMITING Time Seen by Provider: 06/13/20 19:21 History of Present Illness This is a 59-year-old female that presents to the emergency department via private vehicle with complaints of "vomiting". The patient notes a recent diagnosis of ulcerative colitis that required a hospitalization in the recent past. She notes that she was recently discharged and the vomiting has continued. She states that she has been trying antiemetics at home and has not had any relief. She is unable to eat, drink or take her medication. This has persisted therefore prompting her arrival here today. She has tried even eating baby food, pears, Jell-O and other soft and nonirritating foods and notes that this continues to produce emesis. She denies any fevers, chills, chest pain or shortness of breath. Earlier today she was feeling somewhat faint. She denies any abdominal pain. Very minimal amount of blood in the stool. Home Medications Medication Instructions Recorded Confirmed Type mesalamine [Lialda] 4.8 g PO DAILY 56 Days #224 tab 06/11/20 06/13/20 Rx pantoprazole 40 mg PO DAILY #30 tab 06/11/20 06/13/20 Rx prochlorperazine maleate 10 mg PO Q8H PRN #21 tab 06/11/20 06/13/20 Rx [Compazine] ondansetron HCl 4 mg PO TID PRN 06/13/20 06/13/20 History potassium chloride [Klor-Con] 20 meq PO DAILY 06/13/20 06/13/20 History prednisone 0 mg PO .DAILY/UD 06/13/20 06/13/20 History Allergies Allergy/AdvReac Type Severity Reaction Status Date / Time Penicillins Allergy Intermediate POSSIBLE Verified 06/13/20 21:38 ALLERGY Past Med/Surg History Medical History Breast cancer Fibroid tumor Surgical History H/O bilateral mastectomy H/O: hysterectomy History of appendectomy History of breast reconstruction Family History Mother Leukemia Breast cancer Father History of open heart surgery Brother Stroke Hypertension Social History Smoking Status: Never smoker Second Hand Exposure: No; Do You Dip or Chew Tobacco: No; Tobacco Cessation Education Requested by Patient: No Hx Alcohol Use: No Hx Substance Use: No Preferred Language: Guatemalan Communication Ability: Effective 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: No Beliefs That Will Affect Care: None Current Living Situation: Spouse Other Information That Helps Us Care for You: No Feels Safe at Home: Yes Safety Concerns: Feels Safe At This Time Assistive Devices: None Review of Systems A total of 10 systems reviewed and were otherwise negative Physical Exam Vital Signs Vital Signs - 24 hr 06/13/20 19:11 06/13/20 21:05 06/13/20 21:30 Temperature 37.5 C Temperature Source Temporal Artery Scan Pulse Rate 99 H 80 76 Pulse Rate from SpO2 Sensor 80 78 Respiratory Rate 18 15 18 Respiratory Effort / Characteristics Non-Labored Respiratory Depth Normal Blood Pressure 115/79 122/80 Blood Pressure Mean 91 91 Pulse Oximetry 96 96 93 Oxygen Delivery Method Room Air Sepsis Recent Fever Within 48 Hours No Sepsis New/Unexplained Change in Mental Status No Sepsis Action Taken by Nursing No Action Required 06/13/20 21:31 06/13/20 22:00 06/13/20 22:01 Temperature Temperature Source Pulse Rate 85 84 85 Pulse Rate from SpO2 Sensor 82 82 84 Respiratory Rate 18 16 23 Respiratory Effort / Characteristics Respiratory Depth Blood Pressure 122/75 Blood Pressure Mean 79 Pulse Oximetry 95 95 94 Oxygen Delivery Method Sepsis Recent Fever Within 48 Hours Sepsis New/Unexplained Change in Mental Status Sepsis Action Taken by Nursing 06/13/20 22:30 06/13/20 23:00 06/13/20 23:01 Temperature Temperature Source Pulse Rate 85 82 79 Pulse Rate from SpO2 Sensor 84 80 80 Respiratory Rate 21 15 21 Respiratory Effort / Characteristics Respiratory Depth Blood Pressure 117/77 111/74 Blood Pressure Mean 85 83 Pulse Oximetry 94 95 95 Oxygen Delivery Method Sepsis Recent Fever Within 48 Hours Sepsis New/Unexplained Change in Mental Status Sepsis Action Taken by Nursing 06/13/20 23:30 Temperature Temperature Source Pulse Rate 80 Pulse Rate from SpO2 Sensor Respiratory Rate 20 Respiratory Effort / Characteristics Respiratory Depth Blood Pressure Blood Pressure Mean Pulse Oximetry Oxygen Delivery Method Sepsis Recent Fever Within 48 Hours Sepsis New/Unexplained Change in Mental Status Sepsis Action Taken by Nursing VITAL SIGNS - Vital signs and nursing notes were reviewed. Stable and afebrile. GENERAL -59-year-old female appearing her stated age who is in no acute distress but appears clinically dehydrated. Communicates well with provider and answers questions appropriately. SKIN - Without rashes. No meningeal or petechial rash. HEAD - NC/AT. MOUTH/OROPHARYNX - Without perioral cyanosis. NECK - Neck with FROM. No nuchal rigidity. LUNGS - Chest wall symmetric without accessory muscle use, intercostals retractions, or central cyanosis. Normal vesicular breath sounds CTA B/L. No wheezes, rales, or rhonchi appreciated. CARDIAC - RRR with S1/S2. No murmur, rubs, or gallops appreciated. ABDOMEN - Abdominal contour normal without pulsations or visible masses. BS normoactive all four quadrants. No tenderness, palpable masses, hepatosplenomegaly, or ascites noted. PSYCH - A&O, and cooperates fully with examiner. Pt is very pleasant and interacts well with examiner. Course Administered Medications Famotidine 20 mg/ Syringe 5 mls @ 2.5 mls/min IV BID [facility] Stop: 07/14/20 01:10 Last Admin: 06/14/20 07:53 Dose: 2.5 mls/min Documented by: [id number] Admin: 06/14/20 01:33 Dose: 2.5 mls/min Documented by: [id number] Methylprednisolone 20 mg/ (Syringe) 0.32 mls @ 1.5 mls/min IV Q8H [facility] Stop: 07/14/20 01:59 Last Admin: 06/14/20 17:55 Dose: 1.5 mls/min Documented by: [id number] Admin: 06/14/20 09:59 Dose: 1.5 mls/min Documented by: [id number] Admin: 06/14/20 01:33 Dose: 1.5 mls/min Documented by: [id number] Ondansetron HCl (Ondansetron Inj 2 Mg/Ml 2 Ml Vial) 4 mg IV Q6H PRN PRN Reason: Nausea Stop: 07/14/20 01:10 Last Admin: 06/14/20 13:33 Dose: 4 mg Documented by: [id number] Admin: 06/14/20 07:53 Dose: 4 mg Documented by: [id number] Discontinued Medications Sodium Chloride (Nss 1000ml) 1,000 mls @ 999 mls/hr IV .Q1H1M [facility] Stop: 06/13/20 20:45 Last Infusion: 06/13/20 21:08 Dose: 0 mls/hr Documented by: [id number] Admin: 06/13/20 20:07 Dose: 999 mls/hr Documented by: [id number] Potassium Chloride (K Ryan / Wtr) 10 meq in 100 mls @ 100 mls/hr IV Q1H [facility] Stop: 06/13/20 22:44 Last Infusion: 06/13/20 23:24 Dose: 0 mls/hr Documented by: [id number] Admin: 06/13/20 22:12 Dose: 100 mls/hr Documented by: [id number] Infusion: 06/13/20 22:11 Dose: 0 mls/hr Documented by: [id number] Admin: 06/13/20 21:08 Dose: 100 mls/hr Documented by: [id number] Sodium Chloride (Nss 1000ml) 1,000 mls @ 999 mls/hr IV .Q1H1M ONE Stop: 06/14/20 00:51 Last Infusion: 06/14/20 01:21 Dose: 0 mls/hr Documented by: [id number] Infusion: 06/14/20 01:18 Dose: 0 mls/hr Documented by: [id number] Admin: 06/14/20 00:18 Dose: 999 mls/hr Documented by: [id number] Potassium Chloride (K Ryan / Wtr) 10 meq in 100 mls @ 100 mls/hr IV Q1H [facility] Stop: 06/14/20 00:50 Last Infusion: 06/14/20 01:18 Dose: 0 mls/hr Documented by: [id number] Admin: 06/14/20 00:18 Dose: 100 mls/hr Documented by: [id number] Potassium Chloride/Dextrose/Sod Cl (D5nss + 20meq Kcl) 20 meq in 1,000 mls @ 125 mls/hr IV .Q8H [facility] Stop: 06/14/20 17:10 Last Infusion: 06/14/20 17:55 Dose: 0 mls/hr Documented by: [id number] Admin: 06/14/20 09:59 Dose: 125 mls/hr Documented by: [id number] Infusion: 06/14/20 09:33 Dose: 125 mls/hr Documented by: [id number] Admin: 06/14/20 01:33 Dose: 125 mls/hr Documented by: [id number] Potassium Phosphate 15 mmol/ (Sodium Chloride) 255 mls @ 100 mls/hr IV 1000 ONE Stop: 06/14/20 12:32 Last Infusion: 06/14/20 12:37 Dose: 0 mls/hr Documented by: [id number] Admin: 06/14/20 09:59 Dose: 100 mls/hr Documented by: [id number] Ondansetron HCl (Ondansetron Inj 2 Mg/Ml 2 Ml Vial) 4 mg IV NOW STA Stop: 06/13/20 19:34 Last Admin: 06/13/20 20:07 Dose: 4 mg Documented by: [id number] Medical Decision Making Laboratory Data Result diagrams: 06/14/20 07:17 06/14/20 07:17 Lab Results 06/13/20 06/13/20 06/13/20 Range/Units 20:00 20:00 22:02 WBC 12.57 H (4.8-10.8) K/uL RBC 3.81 L (4.2-5.4) M/uL Hgb 10.9 L (12.0-16.0) g/dL Hct 32.7 L (37-47) % MCV 85.8 (80-100) fL MCH 28.6 (25-34) pg MCHC 33.3 (32-36) g/dL RDW Std Deviation 40.7 (36.4-46.3) fL RDW Coeff of Crystal 13.0 (11.5-14.5) % Plt Count 490 H (130-400) K/uL MPV 8.9 (7.4-10.4) fL Immature Gran % (Auto) 1.0 % Neut % (Auto) 79.2 % Lymph % (Auto) 7.7 % [place] % (Auto) 11.4 % Eos % (Auto) 0.6 % Baso % (Auto) 0.1 % Neut # (Auto) 9.96 H (1.4-6.5) K/uL Lymph # (Auto) 0.97 L (1.2-3.4) K/uL [place] # (Auto) 1.43 H (0.11-0.59) K/uL Eos # (Auto) 0.07 (0-0.5) K/uL Baso # (Auto) 0.01 (0-0.2) K/uL Immature Gran # (Auto) 0.13 H (0.00-0.02) K/uL Sodium 136 (136-145) mmol/L Potassium 2.6 L (3.5-5.1) mmol/L Chloride 97 L (98-107) mmol/L Carbon Dioxide 33 H (21-32) mmol/L Anion Gap 6.0 (3-11) BUN 7 (7-18) mg/dl Creatinine 0.58 L (0.6-1.2) mg/dl Est Cr Clr Drug Dosing 90.2 ml/min Est GFR ( Amer) 116.9 Est GFR (Non-Af Amer) 100.9 BUN/Creatinine Ratio 11.1 (10-20) Glucose 116 H (70-99) mg/dl Calcium 8.0 L (8.5-10.1) mg/dl Magnesium 1.9 (1.8-2.4) mg/dl Total Bilirubin 0.4 (0.2-1) mg/dl AST 14 L (15-37) U/L ALT 12 (12-78) U/L Alkaline Phosphatase 65 (45-117) U/L Troponin I < 0.015 (0-0.045) ng/ml Total Protein 6.0 L (6.4-8.2) gm/dl Albumin 2.2 L (3.4-5.0) gm/dl Globulin 3.8 (2.5-4.0) gm/dl Albumin/Globulin Ratio 0.6 L (0.9-2) Lipase 77 (73-393) U/L TSH 1.990 (0.300-4.500) uIu/ml Urine Color Urine Appearance (Clear) Urine pH (4.5-7.5) Ur Specific [place] (1.000-1.030) Urine Protein (Negative) Urine Glucose (UA) (Negative) Urine Ketones (Negative) Urine Blood (Negative) Urine Nitrite (Negative) Urine Bilirubin (Negative) Urine Urobilinogen (Negative) Ur Leukocyte Esterase (Negative) Urine WBC (Auto) (0-5) /hpf Urine RBC (Auto) (0-4) /hpf U Hyaline Cast (Auto) (0-5) /lpf U Epithel Cells (Auto) (0-5) /lpf Urine Bacteria (Auto) (Negative) Ur Renal Epithelial Cell SARS-CoV-2 Ag (Rapid) Negative (Negative) 06/13/20 Range/Units 23:29 WBC (4.8-10.8) K/uL RBC (4.2-5.4) M/uL Hgb (12.0-16.0) g/dL Hct (37-47) % MCV (80-100) fL MCH (25-34) pg MCHC (32-36) g/dL RDW Std Deviation (36.4-46.3) fL RDW Coeff of Crystal (11.5-14.5) % Plt Count (130-400) K/uL MPV (7.4-10.4) fL Immature Gran % (Auto) % Neut % (Auto) % Lymph % (Auto) % [place] % (Auto) % Eos % (Auto) % Baso % (Auto) % Neut # (Auto) (1.4-6.5) K/uL Lymph # (Auto) (1.2-3.4) K/uL [place] # (Auto) (0.11-0.59) K/uL Eos # (Auto) (0-0.5) K/uL Baso # (Auto) (0-0.2) K/uL Immature Gran # (Auto) (0.00-0.02) K/uL Sodium (136-145) mmol/L Potassium (3.5-5.1) mmol/L Chloride (98-107) mmol/L Carbon Dioxide (21-32) mmol/L Anion Gap (3-11) BUN (7-18) mg/dl Creatinine (0.6-1.2) mg/dl Est Cr Clr Drug Dosing ml/min Est GFR ( Amer) Est GFR (Non-Af Amer) BUN/Creatinine Ratio (10-20) Glucose (70-99) mg/dl Calcium (8.5-10.1) mg/dl Magnesium (1.8-2.4) mg/dl Total Bilirubin (0.2-1) mg/dl AST (15-37) U/L ALT (12-78) U/L Alkaline Phosphatase (45-117) U/L Troponin I (0-0.045) ng/ml Total Protein (6.4-8.2) gm/dl Albumin (3.4-5.0) gm/dl Globulin (2.5-4.0) gm/dl Albumin/Globulin Ratio (0.9-2) Lipase (73-393) U/L TSH (0.300-4.500) uIu/ml Urine Color Yellow Urine Appearance Clear (Clear) Urine pH 8.0 H (4.5-7.5) Ur Specific [place] 1.014 (1.000-1.030) Urine Protein Negative (Negative) Urine Glucose (UA) Negative (Negative) Urine Ketones 1+ H (Negative) Urine Blood Negative (Negative) Urine Nitrite Negative (Negative) Urine Bilirubin Negative (Negative) Urine Urobilinogen Negative (Negative) Ur Leukocyte Esterase Trace H (Negative) Urine WBC (Auto) 10-30 H (0-5) /hpf Urine RBC (Auto) 0-4 (0-4) /hpf U Hyaline Cast (Auto) 10-30 H (0-5) /lpf U Epithel Cells (Auto) >30 H (0-5) /lpf Urine Bacteria (Auto) Negative (Negative) Ur Renal Epithelial Cell Not Reportable SARS-CoV-2 Ag (Rapid) (Negative) MDM Narrative Patient was seen and evaluated as above in room a 10. Review was performed of nursing notes and vital signs. I did review pertinent previous visits and patient history. After obtaining a thorough history and physical examination the above work up was performed. She presents to us today with persistent vomiting. She was recently admitted and discharged. She notes a new diagnosis of ulcerative colitis. She has not been able to eat or drink anything at home despite using antiemetics. She is concerned noting inability to eat or drink since her recent discharge from the hospital. Although she is nontoxic in appearance and has relatively stable vital signs she does clinically appear dry. Abdominal exam is benign. I do not suspect emergent abdominal process. I do not suspect perforation. IV access was established. Labs were drawn. Mild leukocytosis 12.57. Anemia with hemoglobin of 10.9. Significant hypokalemia at 2.6. Troponin negative. Urinalysis reveals what is likely a contaminated sample. Rapid Covid test negative. I do believe that further evaluation and management the inpatient setting is warranted and discussed the case with the hospitalist. Please refer to further documentation regarding her stay. GCS: 15 In the evaluation and treatment of this patient the following differential diagnoses were entertained: Electrolyte disturbance, dehydration, ileus, bowel obstruction, PA, PE, perforation, among others. Impression & Plan Nausea & vomiting Discharge Plan Visit Data Chief Complaint: Vomiting Stated Complaint: VOMITING ED Provider: Huy Damian ED Midlevel Provider: Sreekanth Medrano Discharge Problem: Nausea & vomiting Patient Disposition: Admitted As Inpatient Condition: Good Discharge Instructions Interventions: ED Discharge Assessment Last Done: 06/14/20 00:28
[2020-06-13 20:09] LABS: Basophils # (auto) 0.01 K/uL (0-0.2); Basophils % (auto) 0.1 %; Eosinophils # (auto) 0.07 K/uL (0-0.5); Eosinophils % (auto) 0.6 %; Hematocrit (blood only) 32.7 % (37-47); Hemoglobin 10.9 g/dL (12.0-16.0); Immature Granulocytes # (auto) 0.13 K/uL (0.00-0.02); Lymphocytes # (auto) 0.97 K/uL (1.2-3.4); Lymphocytes % (auto) 7.7 %; Mean Corpuscular Hemoglobin 28.6 pg (25-34); Mean Corpuscular Hgb Conc 33.3 g/dL (32-36); Mean Corpuscular Volume 85.8 fL (80-100); Mean Platelet Volume 8.9 fL (7.4-10.4); Monocytes # (auto) 1.43 K/uL (0.11-0.59); Monocytes % (auto) 11.4 %; Neutrophils # (auto) 9.96 K/uL (1.4-6.5); Neutrophils % (auto) 79.2 %; Platelet Count 490 K/uL (130-400); RDW Standard Deviation 40.7 fL (36.4-46.3); Red Blood Count 3.81 M/uL (4.2-5.4); White Blood Count 12.57 K/uL (4.8-10.8)
[2020-06-13 20:41] LABS: Alanine Aminotransferase 12 U/L (12-78); Albumin Globulin Ratio 0.6 (0.9-2); Albumin Level 2.2 gm/dl (3.4-5.0); Alkaline Phosphatase 65 U/L (45-117); Aspartate Aminotransferase 14 U/L (15-37); BUN Creatinine Ratio 11.1 (10-20); Bilirubin,Total 0.4 mg/dl (0.2-1); Blood Urea Nitrogen 7 mg/dl (7-18); Carbon Dioxide 33 mmol/L (21-32); Chloride 97 mmol/L (98-107); Creatinine Clr Calc Pharmacy 90.2 ml/min; Est GFR (African American) 116.9; Est GFR (Non-African American) 100.9; Globulin 3.8 gm/dl (2.5-4.0); Glucose 116 mg/dl (70-99); Lipase 77 U/L (73-393); Magnesium 1.9 mg/dl (1.8-2.4); Potassium 2.6 mmol/L (3.5-5.1); Sodium 136 mmol/L (136-145); Troponin I < 0.015 ng/ml (0-0.045)
[2020-06-13] MEDS: POTASSIUM CHLORIDE / WTR 10 MEQ/100 ML PLCT IV SCH ×2 (21:08→22:12)
[2020-06-13] MEDS ORDERED: POTASSIUM CHLORIDE / WTR 10 MEQ/100 ML PLCT IV STA (23:51)
[2020-06-13] MEDS ORDERED: SODIUM CHLORIDE 0.9% 1000ML 1,000 ML IV ONE (23:51)
[2020-06-13 23:54] LABS: Appearance Urine Clear (Clear); Bacteria Urine Automated Negative (Negative); Bilirubin Urine Negative (Negative); Blood Urine Negative (Negative); Color Urine Yellow; Epithelial Cell Urine Auto >30 /lpf (0-5); Glucose Urine UA Negative (Negative); Ketones Urine 1+ (Negative); Leukocyte Esterase Urine Trace (Negative); Nitrite Urine Negative (Negative); Protein Urine Negative (Negative); RBC Urine Automated 0-4 /hpf (0-4); Specific Gravity Urine 1.014 (1.000-1.030); Urobilinogen Urine Negative (Negative)
--- NOTE | 2020-06-14 01:03 | History & Physical Report ---
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 She was recently discharged from [facility] about two days ago after workup for rectal bleeding with pancolitis Ulcerative Colitis seen on colonoscopy. - Inability to tolerate PO intake led her back for admission as couldn't tolerate Prednisone PO and Compazine PO because of vomiting. Unable to tolerate any significant liquid intake. - Prior workup on hospital admission with negative blood cultures and negative stool micro studies for infectious cause. - There is Leukocytosis but recently on steroids and also could be acute demargination from stress of numerous bouts of vomiting. There is left shift with immature gran 0.13 but again consideration from same. - K in ED was 2.6, and given 10meq IV, will order another 20meq IV, repeat in AM, consistent with poor PO intake and potassium loss from vomiting. - Cl 97 is low again consistent with vomiting. - No significant elevated in Creat to suggest FRAN but could be misleading as probably poor protein intake with illness. - Will consult lead process engineer to help assess nutritional status, noted to have had poor PO intake with current illness. Her Albumin level is low at 2.2. - Lipase was WNL - TSH was WNL - UA was dirty and unreliable. - COVID was negative in ED. - Hgb 10.9 appears slightly improved from discharge value two days ago of 10.2. Did not require any transfusion during last visit, but still having mild BRBPR. - Will treat nausea and vomiting with Zofran IV. There was concern of QTc Prolongation as not using Zofran, but she tolerated this well in ED and Compazine also with QTC prolonging effect and unable to tolerate PO, perhaps Zofran ODT would be more appropriate to get drug into body at home. Will keep on cardiac nurse for this. - Unsure if other possible etiology of nausea and vomiting outside of known colitis. Gallbladder appeared normal on prior CT. Other attributable organ would be gallbladder and perhaps a HIDA scan would help rule this out, order was placed and will defer to day attending if this is clinically needed at this time. Consider this unlikely as no elevated LFTs to suggest stone in duct and without RUQ pain but this would be a rule out test. - Will restart on Methylprednisone 20mg IV q8h as was same as prior admission, wasn't able to tolerate PO steroids so perhaps this was also contributing factor. - No signs of this being ileus. - GI consult - Aspiration precautions. - Pepcid 20mg IV BID. FENGI: Will keep NPO except for sips and chips as aspiration risk until she is comfortable advancing to a diet of clear liquids. 1L NSS Bolus ordered prior to transfer to floor. D5W w/KCL 20meq NSS @ 125ml/hr x 2 bags ordered. Is Architect evaluation as noted above. Admit: Full admit Dispo: Med surg/tele DVT ppx: DVT, anticoagulation contraindicated bc of GI bleed. 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 Was ER positive [place] negative. Appears from old records did not need Tamoxifen because of surgical treatment. HX of right sentinel node biopsy of RUE, limb restriction ordered for RUE. 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 She was recently discharged from [facility] about two days ago after workup for rectal bleeding with diagnosis of Ulcerative Colitis. She also had same symptoms of intractable nausea and vomiting during admission that improved enough to where she was able to be discharged home. At home she notes she has been unable to tolerate any PO intake of liquids, solids, or medications/anti-emetics. She had compazine at home but was unable to tolerate this medication. She was also on a steroid taper but was unable to tolerate this PO as because of vomiting. She notes that vomiting was worse with any PO intake, she tried water/juice/tea without success. She notes that she would get nauseated upon trying to ambulate and knew she needed to come back to ED when she had near-syncope with standing and feeling dehydrated. She denies any vertigo dizziness such as room spinning and noted only lightheadedness. She notes she is still having bright red blood per rectum with two episodes here in ED and continued since discharge, but notes that it appeared to have improved since she was admitted last is minimal. She denies any abdominal pain, noted that she didn't have any abdominal pain on last hospitalization either. She denies any shortness of breath, cough, or fear of aspiration from vomiting. She denies any coffee ground emesisi or bloody/blood tinged emesis. She received IV steroids on previous admission with plan for PO taper as outpatient but was unable to tolerate this. In the ED, she received NSS 1L Bolus, Zofran 4mg IV, KCL 10meq IV. She noted improvement with this treatment and had no active emesis. Allergies Allergy/AdvReac Type Severity Reaction Status Date / Time Penicillins Allergy Intermediate POSSIBLE Verified 06/13/20 21:38 ALLERGY Home Medications Medication Instructions Recorded Confirmed Type mesalamine [Lialda] 4.8 g PO DAILY 56 Days #224 tab 06/11/20 06/13/20 Rx pantoprazole 40 mg PO DAILY #30 tab 06/11/20 06/13/20 Rx prochlorperazine maleate 10 mg PO Q8H PRN #21 tab 06/11/20 06/13/20 Rx [Compazine] ondansetron HCl 4 mg PO TID PRN 06/13/20 06/13/20 History potassium chloride [Klor-Con] 20 meq PO DAILY 06/13/20 06/13/20 History prednisone 0 mg PO .DAILY/UD 06/13/20 06/13/20 History Past Med/Surg History Medical History Breast cancer Fibroid tumor Surgical History H/O bilateral mastectomy H/O: hysterectomy History of appendectomy History of breast reconstruction Family History Mother Leukemia Breast cancer Father History of open heart surgery Brother Stroke Hypertension Social History Smoking Status: Never smoker Second Hand Exposure: No; Do You Dip or Chew Tobacco: No; Tobacco Cessation Education Requested by Patient: No Hx Alcohol Use: No Hx Substance Use: No Preferred Language: Palestinian Communication Ability: Effective Proof Passer Required: No Beliefs That Will Affect Care: None Current Living Situation: Spouse Other Information That Helps Us Care for You: No Feels Safe at Home: Yes Safety Concerns: Feels Safe At This Time Assistive Devices: None Review of Systems Review of Systems: All systems reviewed & are unremarkable except as noted in HPI & below Constitutional: no fever and no chills Eyes: no blind spots and no diplopia Ear, Nose, Mouth, Throat: + dry mouth; no nasal congestion, no nasal obstruction and no epistaxis Respiratory: no cough and no dyspnea Cardiovascular: no chest pain and no palpitations Gastrointestinal: as per Subjective / HPI and + bloating; no abdominal pain Genitourinary: no dysuria and no urinary frequency Musculoskeletal: no back pain and no neck pain Integumentary: no rash and no lesions Neurologic: + dizziness; no falls, no numbness and no syncope Physical Exam Constitutional: + ill appearing, cooperative and comfortable appears fatigued Eyes: PERRL, conjunctivae normal, anicteric sclerae ENMT: dry mucous membranes Neck: trachea midline, no thyromegaly Respiratory: normal respiratory effort, lungs clear to auscultation Cardiovascular: RRR, no murmur, no edema Gastrointestinal (Abdomen): Inspection/Auscultation: normal bowel sounds Percussion/Palpation: abdomen soft; abdomen nontender, no guarding and abdomen not rigid Musculoskeletal: Head/Neck/Chest: normocephalic and head atraumatic Skin: no rashes, warm and dry Neurologic: moves all extremities and awake; not confused Psychiatric: Orientation: alert and oriented x 3 polite, appears fatigued Results & Data Results & Data ([facility]) Vital Signs (Past 12 Hours) Vital Signs Temp Pulse Resp BP Pulse Ox 06/14/20 00:28 83 16 106/65 95 06/14/20 00:01 74 14 94 06/14/20 00:00 74 16 106/65 95 06/13/20 23:30 80 20 06/13/20 23:01 79 21 95 06/13/20 23:00 82 15 111/74 95 06/13/20 22:30 85 21 117/77 94 06/13/20 22:01 85 23 94 06/13/20 22:00 84 16 122/75 95 06/13/20 21:31 85 18 95 06/13/20 21:30 76 18 122/80 93 06/13/20 21:05 80 15 96 06/13/20 19:11 37.5 C 99 H 18 115/79 96 Laboratory Results Laboratory Results - last 24 hr 06/13/20 06/13/20 06/13/20 20:00 20:00 22:02 WBC 12.57 H RBC 3.81 L Hgb 10.9 L Hct 32.7 L MCV 85.8 MCH 28.6 MCHC 33.3 RDW Std Deviation 40.7 RDW Coeff of Crystal 13.0 Plt Count 490 H MPV 8.9 Immature Gran % (Auto) 1.0 Neut % (Auto) 79.2 Lymph % (Auto) 7.7 Denali % (Auto) 11.4 Eos % (Auto) 0.6 Baso % (Auto) 0.1 Neut # (Auto) 9.96 H Lymph # (Auto) 0.97 L Denali # (Auto) 1.43 H Eos # (Auto) 0.07 Baso # (Auto) 0.01 Immature Gran # (Auto) 0.13 H Sodium 136 Potassium 2.6 L Chloride 97 L Carbon Dioxide 33 H Anion Gap 6.0 BUN 7 Creatinine 0.58 L Est Cr Clr Drug Dosing 90.2 Est GFR ( Amer) 116.9 Est GFR (Non-Af Amer) 100.9 BUN/Creatinine Ratio 11.1 Glucose 116 H Calcium 8.0 L Magnesium 1.9 Total Bilirubin 0.4 AST 14 L ALT 12 Alkaline Phosphatase 65 Troponin I < 0.015 Total Protein 6.0 L Albumin 2.2 L Globulin 3.8 Albumin/Globulin Ratio 0.6 L Lipase 77 TSH 1.990 Urine Color Urine Appearance Urine pH Ur Specific [place] Urine Protein Urine Glucose (UA) Urine Ketones Urine Blood Urine Nitrite Urine Bilirubin Urine Urobilinogen Ur Leukocyte Esterase Urine WBC (Auto) Urine RBC (Auto) U Hyaline Cast (Auto) U Epithel Cells (Auto) Urine Bacteria (Auto) Ur Renal Epithelial Cell SARS-CoV-2 Ag (Rapid) Negative 06/13/20 23:29 WBC RBC Hgb Hct MCV MCH MCHC RDW Std Deviation RDW Coeff of Crystal Plt Count MPV Immature Gran % (Auto) Neut % (Auto) Lymph % (Auto) Den[place] % (Auto) Eos % (Auto) Baso % (Auto) Neut # (Auto) Lymph # (Auto) Den[place] # (Auto) Eos # (Auto) Baso # (Auto) Immature Gran # (Auto) Sodium Potassium Chloride Carbon Dioxide Anion Gap BUN Creatinine Est Cr Clr Drug Dosing Est GFR ( Amer) Est GFR (Non-Af Amer) BUN/Creatinine Ratio Glucose Calcium Magnesium Total Bilirubin AST ALT Alkaline Phosphatase Troponin I Total Protein Albumin Globulin Albumin/Globulin Ratio Lipase TSH Urine Color Yellow Urine Appearance Clear Urine pH 8.0 H Ur Specific [place] 1.014 Urine Protein Negative Urine Glucose (UA) Negative Urine Ketones 1+ H Urine Blood Negative Urine Nitrite Negative Urine Bilirubin Negative Urine Urobilinogen Negative Ur Leukocyte Esterase Trace H Urine WBC (Auto) 10-30 H Urine RBC (Auto) 0-4 U Hyaline Cast (Auto) 10-30 H U Epithel Cells (Auto) >30 H Urine Bacteria (Auto) Negative Ur Renal Epithelial Cell Not Reportable SARS-CoV-2 Ag (Rapid) Medications Administered Potassium Chloride/Dextrose/Sod Cl (D5nss + 20meq Kcl) 20 meq in 1,000 mls @ 125 mls/hr IV .Q8H [facility] Stop: 06/14/20 17:10 Last Admin: 06/14/20 01:33 Dose: 125 mls/hr Documented by: [id number] Famotidine 20 mg/ Syringe 5 mls @ 2.5 mls/min IV BID [facility] Stop: 07/14/20 01:10 Last Admin: 06/14/20 01:33 Dose: 2.5 mls/min Documented by: [id number] Methylprednisolone 20 mg/ (Syringe) 0.32 mls @ 1.5 mls/min IV Q8H [facility] Stop: 07/14/20 01:59 Last Admin: 06/14/20 01:33 Dose: 1.5 mls/min Documented by: [id number] Code Status & VTE Plan Code Status Full VTE Prophylaxis Plan VTE Prophylaxis will be ordered: Yes Reason for no VTE drug order: Contraindicated Supervising Physician Co-Signing Physician Notes Attending addendum: I have physically seen this patient, have supervised the medical residents activities, and agree with the H&P unless as otherwise noted. Assessment and Plan: Intractable nausea vomiting/ulcerative colitis- Status post recent hospitalization from 06/07-06/11 with colonoscopy suggesting pancolitis ulcerative colitis. N.p.o. Methylprednisolone 20 mg IV every 8 hours Zofran 4 mg IV every 6 hours as needed Famotidine 20 mg IV every 12 hourr Consult gastroenterology Hypokalemia- Potassium 2.6 upon admission, likely secondary to GI losses. Replace 2K riders and IV fluids. Remaining orders and notations as noted Resident Activity Tracking Resident Involvement: Resident Care Provided Care Provided: Adult Hospital Medicine
[2020-06-14] MEDS ORDERED: ACETAMINOPHEN 325 MG TAB PO PRN (01:11)
[2020-06-14] MEDS: FAMOTIDINE 20 MG in SYRINGE 3 ML IV SCH ×3 (01:33→19:34)
[2020-06-14] MEDS: methylPREDNISolone 20 MG in SYRINGE 0 ML IV SCH ×3 (01:33→17:55)
[2020-06-14] MEDS: D5NSS + 20MEQ KCL 20 MEQ/1,000 ML BAG IV SCH ×2 (01:33→09:59)
[2020-06-14 07:39] LABS: Eosinophils # (auto) 0.01 K/uL (0-0.5); Eosinophils % (auto) 0.1 %; Hematocrit (blood only) 30.6 % (37-47); Hemoglobin 10.3 g/dL (12.0-16.0); Immature Granulocytes # (auto) 0.14 K/uL (0.00-0.02); Immature Granulocytes % (auto) 1.6 %; Lymphocytes # (auto) 0.93 K/uL (1.2-3.4); Lymphocytes % (auto) 10.4 %; Mean Corpuscular Hgb Conc 33.7 g/dL (32-36); Mean Corpuscular Volume 86.2 fL (80-100); Mean Platelet Volume 9.1 fL (7.4-10.4); Monocytes # (auto) 0.63 K/uL (0.11-0.59); Neutrophils # (auto) 7.24 K/uL (1.4-6.5); Neutrophils % (auto) 80.9 %; Platelet Count 517 K/uL (130-400); RDW Coefficient of Variation 13.2 % (11.5-14.5); RDW Standard Deviation 41.9 fL (36.4-46.3); Red Blood Count 3.55 M/uL (4.2-5.4); White Blood Count 8.95 K/uL (4.8-10.8)
[2020-06-14 07:48] LABS: INR 1.2 (0.9-1.1); Prothrombin Time 12.1 Seconds (9.0-12.0)
[2020-06-14] MEDS: ONDANSETRON INJ 2 MG/ML 2 ML VIAL IV PRN ×3 (07:53→19:31)
[2020-06-14 08:20] LABS: Albumin Globulin Ratio 0.5 (0.9-2); Albumin Level 1.9 gm/dl (3.4-5.0); BUN Creatinine Ratio 6.3 (10-20); Bilirubin,Total 0.3 mg/dl (0.2-1); Calcium 7.6 mg/dl (8.5-10.1); Creatinine Clr Calc Pharmacy 88.7 ml/min; Est GFR (African American) 116.3; Est GFR (Non-African American) 100.3; Globulin 3.6 gm/dl (2.5-4.0); Magnesium 1.9 mg/dl (1.8-2.4); Phosphorus 2.6 mg/dl (2.5-4.9); Total Protein 5.5 gm/dl (6.4-8.2)
[2020-06-14 08:27] LABS: Potassium 3.2 mmol/L (3.5-5.1)
[2020-06-14] MEDS ORDERED: POTASSIUM PHOS 3 MMOL/1 ML INFUSION IV STA (09:24)
[2020-06-14] MEDS ORDERED: POTASSIUM PHOSPHATE 15 MMOL in SODIUM CHLORIDE 0.9% 250 ML IV ONE (10:00)
--- NOTE | 2020-06-14 11:02 | Gastrointestinal Consultation ---
Date of Consultation June 14, 2020 Assessment & Plan (1) Colitis with rectal bleeding: Continue Solu-medrol 20 mg IV q8 hours as per hospitalist team When tolerating PO, would recommend an 8 week Prednisone taper starting at 40 mg by mouth daily and decreasing by 5 mg each week. When tolerating PO, would restart Lialda 2.4 g by mouth twice daily. Advance to clear liquids today [facility] will resume care on 06/15 (2) Nausea & vomiting: Continue Pepcid 20 mg IV BID Continue Antiemetics as needed When tolerating PO, would stop Pepcid and switch to Protonix 40 mg by mouth daily. History of Present Illness Reason for Consultation: Nausea and vomiting Ulcerative colitis Attending Physician: Bhavna Dang, DO History of Present Illness I was asked to see Shivani Isbell today in consultation secondary to intractable nausea and vomiting and recently diagnosed Ulcerative colitis. She was admitted earlier this week, and did undergo an EGD and Colonoscopy by Dr. Hanks of [facility], at which time she was noted to have gastritis, as well as ulcerative pancolitis. She was started on IV steroids and was feeling much better, and was discharged to home on a steroid taper and Lialda therapy with outpatient followup instructions. She states that upon arrival at home, she was unable to take her medications due to intractable nausea and vomiting. She presented to the ER, and was subsequently admitted. At the time that I saw her this AM, she was feeling much better. She states that the nausea has improved significantly with antiemetic therapy. She has not had any episodes of vomiting since her admission. She states that she is not having any abdominal pain, and denies any fevers, or chills. She has had approximately 5 loose stools this AM, but has not had any passage of blood. She denies any further complaints at this time. Allergies Allergy/AdvReac Type Severity Reaction Status Date / Time Penicillins Allergy Intermediate POSSIBLE Verified 06/13/20 21:38 ALLERGY Home Medications Medication Instructions Recorded Confirmed Type mesalamine [Lialda] 4.8 g PO DAILY 56 Days #224 tab 06/11/20 06/13/20 Rx pantoprazole 40 mg PO DAILY #30 tab 06/11/20 06/13/20 Rx prochlorperazine maleate 10 mg PO Q8H PRN #21 tab 06/11/20 06/13/20 Rx [Compazine] ondansetron HCl 4 mg PO TID PRN 06/13/20 06/13/20 History potassium chloride [Klor-Con] 20 meq PO DAILY 06/13/20 06/13/20 History prednisone 0 mg PO .DAILY/UD 06/13/20 06/13/20 History Patient History Medical History Breast cancer Fibroid tumor Surgical History H/O bilateral mastectomy H/O: hysterectomy History of appendectomy History of breast reconstruction Family History Mother Leukemia Breast cancer Father History of open heart surgery Brother Stroke Hypertension Social History Smoking Status: Never smoker Second Hand Exposure: No; Do You Dip or Chew Tobacco: No; Tobacco Cessation Education Requested by Patient: No Hx Alcohol Use: No Hx Substance Use: No Preferred Language: Ivorian Communication Ability: Effective Recreation Director Required: No Beliefs That Will Affect Care: None Current Living Situation: Spouse Other Information That Helps Us Care for You: No Feels Safe at Home: Yes Safety Concerns: Feels Safe At This Time Assistive Devices: None Review of Systems Review of Systems: All systems reviewed & are unremarkable except as noted in HPI & below Physical Exam Constitutional: WD/WN, vitals as above Eyes: PERRL, conjunctivae normal, anicteric sclerae ENMT: external ear and nose normal, oropharynx normal Neck: trachea midline, no thyromegaly Respiratory: normal respiratory effort; no respiratory distress and no labored breathing Cardiovascular: Rate/Rhythm: regular rate and regular rhythm Gastrointestinal (Abdomen): normal bowel sounds, soft, nontender, no hepatosplenomegaly Skin: no rashes, warm and dry Psychiatric: A+Ox3, euthymic affect Results & Data ([place]) Vital Signs (Past 12 Hours) Vital Signs Temp Pulse Pulse Resp BP BP Pulse Ox 06/14/20 09:15 80 06/14/20 07:20 37.0 C 73 18 133/72 93 06/14/20 05:41 37.1 C 18 136/79 96 06/14/20 00:28 83 16 106/65 95 06/14/20 00:01 74 14 94 06/14/20 00:00 74 16 106/65 95 06/13/20 23:30 80 20 06/13/20 23:01 79 21 95 06/13/20 23:00 82 15 111/74 95 PG Care Time/CCT Total # of Minutes Spent Total Time Spent with Patient: Total time spent is greater than 50% in coordination of care (as documented) at patient's floor/unit and/or counseling patient: Coding Level of Care Code 12454 Inpt Consult Level 3 Diagnoses Colitis with rectal bleeding K52.9; K62.5 Nausea & vomiting R11.2
--- NOTE | 2020-06-14 14:15 | Hospitalist Progress Note ---
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 She was recently discharged from [facility] about two days ago after workup for rectal bleeding with pancolitis Ulcerative Colitis seen on colonoscopy. - Inability to tolerate PO intake led her back for admission as couldn't tolerate Prednisone PO and Compazine PO because of vomiting. Unable to tolerate any significant liquid intake. - Prior workup on hospital admission with negative blood cultures and negative stool micro studies for infectious cause. - There is Leukocytosis but recently on steroids and also could be acute demargination from stress of numerous bouts of vomiting. There is left shift with immature gran 0.13 but again consideration from same. - K in ED was 2.6, and given 10meq IV, will order another 20meq IV, repeat in AM, consistent with poor PO intake and potassium loss from vomiting. - Cl 97 is low again consistent with vomiting. - No significant elevated in Creat to suggest FRAN but could be misleading as probably poor protein intake with illness. - Will consult system architect to help assess nutritional status, noted to have had poor PO intake with current illness. Her Albumin level is low at 2.2. - Lipase, TSH WNL - COVID was negative in ED. - Hgb 10.9 appears slightly improved from discharge value two days ago of 10.2. Did not require any transfusion during last visit, but still having mild BRBPR. - Will treat nausea and vomiting with Zofran IV. There was concern of QTc Prolongation as not using Zofran, but she tolerated this well in ED and Compazine also with QTC prolonging effect and unable to tolerate PO, perhaps Zofran ODT would be more appropriate to get drug into body at home. Will keep on library monitor for this. - Unsure if other possible etiology of nausea and vomiting outside of known colitis. Gallbladder appeared normal on prior CT. Other attributable organ would be gallbladder and perhaps a HIDA scan would help rule this out, order was placed and will defer to day attending if this is clinically needed at this time. Consider this unlikely as no elevated LFTs to suggest stone in duct and without RUQ pain but this would be a rule out test. - Will restart on Methylprednisone 20mg IV q8h as was same as prior admission, wasn't able to tolerate PO steroids so perhaps this was also contributing factor. - No signs of this being ileus. - Pepcid 20mg IV BID. 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 Was ER positive [place] negative. Appears from old records did not need Tamoxifen because of surgical treatment. HX of right sentinel node biopsy of RUE, limb restriction ordered for RUE. (2) Colitis with rectal bleeding: As per GI Solumedrol currently (3) Hypokalemia: (4) Rheumatoid arthritis: No current meds (5) Abnormal finding on urinalysis: Trace leuk est, neg nitrites Cx pending (6) DVT prophylaxis: anticoagulation contraindicated bc of GI bleed. Admission and Anticipated Discharge Date Admission Date: June 13, 2020 Subjective Pt states very mild nausea, but last emesis was last night. Occasional crampy abd pain, but no other pain. Stools are loose, but no nii liquid stools. Pt denies fever, SOB, chest pain, c/d, LE pain or swelling. Pt states that last solid PO was just prior to d/c. She has not even been able to get a spoon of baby food into her mouth due to onset of n/v. She took none of the prescribed meds on d/c due to n/v. Review of Systems Review of Systems: Pertinent positives and negatives reviewed in HPI--all others negative Physical Exam Constitutional: WD/WN, vitals as above Eyes: normal visual padilla by confrontation and + anicteric sclerae Neck: normal visual inspection and trachea midline Respiratory: normal respiratory effort, lungs clear to auscultation Cardiovascular: Rate/Rhythm: regular rate and regular rhythm Gastrointestinal (Abdomen): Inspection/Auscultation: abdomen not distended Percussion/Palpation: abdomen soft; abdomen nontender Musculoskeletal: Head/Neck/Chest: normocephalic and head atraumatic negative for edema, peripheral pulses intact Skin: no rashes, warm and dry Neurologic: awake; not confused Speech / Cognition: normal speech Psychiatric: A+Ox3, euthymic affect Results & Data Results & Data ([facility]) Vital Signs (Past 12 Hours) Vital Signs Temp Pulse Pulse Resp BP BP Pulse Ox 06/14/20 11:30 36.8 C 76 18 191/74 H 95 06/14/20 09:15 80 06/14/20 07:20 37.0 C 73 18 133/72 93 06/14/20 05:41 37.1 C 18 136/79 96 PG Care Time/CCT Total # of Minutes Spent Total Time Spent with Patient: Total time spent is greater than 50% in coordination of care (as documented) at patient's floor/unit and/or counseling patient: Coding Level of Care Code 97354 Subseq Hosp Care Lvl 3 Diagnoses Nausea & vomiting R11.2 Colitis with rectal bleeding K52.9; K62.5 Hypokalemia E87.6 Rheumatoid arthritis M06.9 Abnormal finding on urinalysis R82.90 DVT prophylaxis Z29.9
[2020-06-15] MEDS: methylPREDNISolone 20 MG in SYRINGE 0 ML IV SCH ×3 (02:54→17:41)
[2020-06-15 06:25] LABS: Estimated Average Glucose 117 mg/dl; Hemoglobin A1C 5.7 % (4.5-5.6)
[2020-06-15] MEDS: ONDANSETRON INJ 2 MG/ML 2 ML VIAL IV PRN (06:25)
--- NOTE | 2020-06-15 06:44 | Billing Data ---
Date of Service June 15, 2020 Coding Level of Care Code 46689 OBS Care - Level 3
[2020-06-15] MEDS: FAMOTIDINE 20 MG in SYRINGE 3 ML IV SCH ×2 (08:01→21:03)
--- NOTE | 2020-06-15 10:00 | Hospitalist Progress Note ---
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 She was recently discharged from [facility] about two days ago after workup for rectal bleeding with pancolitis Ulcerative Colitis seen on colonoscopy. - Inability to tolerate PO intake led her back for admission as couldn't tolerate Prednisone PO and Compazine PO because of vomiting. - workup on previous hospital admission with negative blood cultures and negative stool micro studies for infectious cause. - COVID was negative in ED. - only remidy is IV zofran , will keep on monitoring manager for this. - Gallbladder appeared normal on prior CT. PT refuese HIDA( LFT are normal) -remains on on Methylprednisone 20mg IV q8h as was same as prior admission, wasn't able to tolerate PO steroids so perhaps this was also contributing factor. - Pepcid 20mg IV BID. 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 Was ER positive [place] negative. Appears from old records did not need Tamoxifen because of surgical treatment. HX of right sentinel node biopsy of RUE, limb restriction ordered for RUE. (2) Acute dehydration: (3) Hypokalemia: (4) Colitis with rectal bleeding: As per GI Solumedrol currently (5) DCIS (ductal carcinoma in situ): Admission and Anticipated Discharge Date Admission Date: June 13, 2020 Subjective Patient had 4 episodes of vomiting since last p.m. this morning her vomiting was her food from the night before. Her midmorning vomiting was her Jell-O she had with breakfast. GI medicine had recommended schedule antiemetics perhaps addition of Phenergan attempted advancing diet both vomiting the patient is reluctant to advance her diet. Review of Systems Review of Systems: Mild distress and fatigue no headache, blurry or double vision no speech or swallowing issues no chest pain, pressure or palpitations no shortness of breath, cough or wheezes no abdominal pain, has had persistent nausea & vomiting, still with bloody bowel movement no dysuria, hematuria or frequency no focal joint pain or swelling no back pain, CVA tenderness or radicular pain no bruising, bleeding or rashes no focal signs of weakness or numbness or altered sensation no complaints of anxiety or depression.. Physical Exam Physical Exam: The patient appeared well nourished and normally developed. Vital signs as documented. Head exam is normocephalic atraumatic no scleral icterus Neck is without JVD, thyromegaly, or carotid bruits. Lungs are clear to auscultation, no focal loss of breath sounds Cardiac exam, Rhythm is regular.. No murmurs, rubs or gallops. Abdominal exam reveals normal bowel sounds, soft no epigastric tenderness Extremities are nonedematous and both pedal pulses are present Neurologic exam is alert and oriented, no focal loss of strength or sensation Skin is without bruises or rashes Psychologically is without concerns for anxiety or depression. Results & Data Results & Data ([facility]) Vital Signs (Past 12 Hours) Vital Signs Temp Pulse Pulse Resp BP BP Pulse Ox 06/15/20 07:42 77 06/15/20 07:23 98.2 F 70 16 167/88 H 96 06/15/20 04:14 77 06/15/20 04:00 98.2 F 73 20 146/82 H 93 06/14/20 23:10 98.6 F 75 20 152/74 H 96 PG Care Time/CCT Total # of Minutes Spent Total Time Spent with Patient: Total time spent is greater than 50% in coordination of care (as documented) at patient's floor/unit and/or counseling patient: Coding Level of Care Code 97447 Subseq Hosp Care Lvl 3 Diagnoses Nausea & vomiting R11.2 Acute dehydration E86.0 Hypokalemia E87.6 Colitis with rectal bleeding K52.9; K62.5 DCIS (ductal carcinoma in situ) D05.10
--- NOTE | 2020-06-15 10:09 | Gastroenterology Progress Note ---
Date of Service June 15, 2020 Assessment & Plan (1) Nausea: -Diet as tolerated -US RUQ to r/o gallbladder issues -Would advise scheduling doses of antiemetic therapy. If Zofran & Compazine are not effective, consider Phenergan suppositories. (2) Ulcerative pancolitis: -8 week Prednisone taper on d/c (begin at 40 mg daily x 1 week and decrease by 5 mg weekly thereafter) -Outpatient discussion for Entyvcorinne (given history of breast cancer would avoid Remicade/Humira) Patient appears quite stable and her clinical picture can be managed in the outpatient setting. Admission and Anticipated Discharge Date Admission Date: June 13, 2020 Supervising Physician Co-Signing Physician Notes Agree with RAMESH Damico Abd: Soft, NT, ND Continue current therapy and supportive care RUQ US with no GI abnormalities Subjective Patient is a 59 yo female with ulcerative pancolitis who returned to the hospital after discharge due to nausea. She reports that she feels her saliva is too thick, particularly after eating jello. She notes that she is having racing thoughts on steroids. She denies issues with rectal bleeding at present, but notes she moves her bowels shortly after eating. She reports ongoing nausea. Review of Systems Constitutional: no fever and no chills Respiratory: no cough and no dyspnea Cardiovascular: no chest pain Gastrointestinal: + nausea and + diarrhea/loose stools Physical Exam Constitutional: WD/WN, vitals as above Neck: normal visual inspection Respiratory: normal respiratory effort Gastrointestinal (Abdomen): Inspection/Auscultation: abdomen normal to inspection Musculoskeletal: Head/Neck/Chest: normocephalic Skin: no rashes Psychiatric: A+Ox3, euthymic affect Results & Data Results & Data ([facility]) Vital Signs (Past 12 Hours) Vital Signs Temp Pulse Pulse Resp BP BP Pulse Ox 06/15/20 07:42 77 06/15/20 07:23 36.8 C 70 16 167/88 H 96 06/15/20 04:14 77 06/15/20 04:00 36.8 C 73 20 146/82 H 93 06/14/20 23:10 37 C 75 20 152/74 H 96 PG Care Time/CCT Total # of Minutes Spent Total Time Spent with Patient: Total time spent is greater than 50% in coordination of care (as documented) at patient's floor/unit and/or counseling patient: Coding Level of Care Code 87728 Subseq Hosp Care Lvl 3 Diagnoses Nausea R11.0 Ulcerative pancolitis K51.00
--- NOTE | 2020-06-15 15:10 | Ultrasound Report ---
BILIARY ULTRASOUND CLINICAL HISTORY: Nausea COMPARISON STUDY: CT scan dated 06/07/2020 FINDINGS: The gallbladder appears sonographically normal. The liver appears sonographically normal. There is no ductal dilatation. The common bile duct measures 6 mm. No pancreatic abnormalities are visualized. There is a 21 mm right renal parapelvic cyst. IMPRESSION: 1. Ultrasonographically normal liver, pancreas and gallbladder 2. 21 mm right renal cyst ACT 112: Negative or not required by law. Electronically signed by: Mayo Colvin M.D. 06/15/2020 3:08 PM
[2020-06-15] MEDS: PROMETHAZINE HCL 12.5 MG in SODIUM CHLORIDE 0.9% 50 ML IV PRN (17:41)
[2020-06-15] MEDS: ONDANSETRON INJ 2 MG/ML 2 ML VIAL IV SCH (21:03)
[2020-06-16] MEDS: methylPREDNISolone 20 MG in SYRINGE 0 ML IV SCH ×3 (02:50→17:57)
--- NOTE | 2020-06-16 07:27 | Hospitalist Progress Note ---
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 She was recently discharged from [facility], Ulcerative Colitis seen on colonoscopy. - Inability to tolerate PO intake led her back for admission as couldn't tolerate Prednisone PO and Compazine PO because of vomiting. - workup on previous hospital admission with negative blood cultures and negative stool micro studies for infectious cause. - COVID was negative in ED. - only remidy is IV zofran , now trying odt to see if she can go home - Gallbladder appeared normal on prior CT. PT refuese HIDA( LFT are normal) - U/s normal liver pancreas gall bladder and 21 mm R renal cyst -remains on on Methylprednisone 20mg IV q8h as was same as prior admission, wasn't able to tolerate PO steroids so perhaps this was also contributing factor. - Pepcid 20mg BID. 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 Was ER positive [place] negative. Appears from old records did not need Tamoxifen because of surgical treatment. HX of right sentinel node biopsy of RUE, limb restriction ordered for RUE. (2) Acute dehydration: (3) Hypokalemia: (4) Colitis with rectal bleeding: As per GI Solumedrol currently (5) DCIS (ductal carcinoma in situ): Admission and Anticipated Discharge Date Admission Date: June 13, 2020 Subjective Patient had episodes of vomiting this am after smelling her roommates bowel movement. now she is fine. GI medicine had recommended schedule antiemetics, and she is improved on these. Review of Systems Review of Systems: Mild distress and fatigue no headache, blurry or double vision no speech or swallowing issues no chest pain, pressure or palpitations no shortness of breath, cough or wheezes no abdominal pain, has had persistent nausea & vomiting, still with bloody bowel movement but lessening no dysuria, hematuria or frequency no focal joint pain or swelling no back pain, CVA tenderness or radicular pain no bruising, bleeding or rashes no focal signs of weakness or numbness or altered sensation no complaints of anxiety or depression.. Physical Exam Physical Exam: The patient appeared well nourished and normally developed. Vital signs as documented. Head exam is normocephalic atraumatic no scleral icterus Neck is without JVD, thyromegaly, or carotid bruits. Lungs are clear to auscultation, no focal loss of breath sounds Cardiac exam, Rhythm is regular.. No murmurs, rubs or gallops. Abdominal exam reveals normal bowel sounds, soft no epigastric tenderness Extremities are nonedematous and both pedal pulses are present Neurologic exam is alert and oriented, no focal loss of strength or sensation Skin is without bruises or rashes Psychologically is without concerns for anxiety or depression. Results & Data Results & Data ([facility]) Vital Signs (Past 12 Hours) Vital Signs Temp Pulse Pulse Resp BP Pulse Ox Pulse Ox 06/16/20 05:00 96 06/16/20 03:31 98.6 F 86 18 167/89 H 96 06/15/20 23:54 68 06/15/20 23:25 98.2 F 82 18 182/83 H 97 06/15/20 20:43 98.2 F 81 18 182/80 H 96 PG Care Time/CCT Total # of Minutes Spent Total Time Spent with Patient: Total time spent is greater than 50% in coordination of care (as documented) at patient's floor/unit and/or counseling patient: Coding Level of Care Code 42133 Subseq Hosp Care Lvl 2 Diagnoses Nausea & vomiting R11.2 Acute dehydration E86.0 Hypokalemia E87.6 Colitis with rectal bleeding K52.9; K62.5 DCIS (ductal carcinoma in situ) D05.10
[2020-06-16] MEDS: FAMOTIDINE 20 MG in SYRINGE 3 ML IV SCH ×2 (07:37→20:37)
[2020-06-16] MEDS: ONDANSETRON INJ 2 MG/ML 2 ML VIAL IV SCH (07:37)
[2020-06-16] MEDS ORDERED: POTASSIUM CHLORIDE 10 MEQ / 100ML WTR IV STA (10:07)
[2020-06-16] MEDS: POTASSIUM CHLORIDE / WTR 10 MEQ/100 ML PLCT IV SCH ×3 (11:28→14:02)
[2020-06-16] MEDS: ONDANSETRON 4 MG OD TAB PO SCH ×2 (11:28→18:00)
[2020-06-16] MEDS: PROMETHAZINE HCL 12.5 MG in SODIUM CHLORIDE 0.9% 50 ML IV PRN (20:37)
[2020-06-17] MEDS: methylPREDNISolone 20 MG in SYRINGE 0 ML IV SCH ×2 (03:11→10:02)
[2020-06-17] MEDS: ONDANSETRON 4 MG OD TAB PO SCH ×2 (03:13→10:19)
[2020-06-17] MEDS: FAMOTIDINE 20 MG in SYRINGE 3 ML IV SCH (07:58)
--- NOTE | 2020-06-17 20:01 | Discharge Summary ---
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 She was recently discharged from [facility] about two days ago after workup for rectal bleeding with diagnosis of Ulcerative Colitis. She also had same symptoms of intractable nausea and vomiting during admission that improved enough to where she was able to be discharged home. At home she notes she has been unable to tolerate any PO intake of liquids, solids, or medications/anti-emetics. She had compazine at home but was unable to tolerate this medication. She was also on a steroid taper but was unable to tolerate this PO as because of vomiting. She notes that vomiting was worse with any PO intake, she tried water/juice/tea without success. She notes that she would get nauseated upon trying to ambulate and knew she needed to come back to ED when she had near-syncope with standing and feeling dehydrated. She denies any vertigo dizziness such as room spinning and noted only lightheadedness. She notes she is still having bright red blood per rectum with two episodes here in ED and continued since discharge, but notes that it appeared to have improved since she was admitted last is minimal. She denies any abdominal pain, noted t hat she didn't have any abdominal pain on last hospitalization either. She denies any shortness of breath, cough, or fear of aspiration from vomiting. She denies any coffee ground emesisi or bloody/blood tinged emesis. She received IV steroids on previous admission with plan for PO taper as outpatient but was unable to tolerate this. In the ED, she received NSS 1L Bolus, Zofran 4mg IV, KCL 10meq IV. She noted improvement with this treatment and had no active emesis. Principal Diagnosis Intractable nausea and vomiting Ulcerative colitis flare Discharge Exam The patient appeared well Vital signs as documented. Lungs are clear to auscultation and appear unlabored Cardiac exam, Rhythm is regular.. No murmurs, rubs or gallops. Abdominal exam reveals normal bowel sounds, soft non tender, no masses Extremities are nonedematous and both pedal pulses are normal. Neurologic exam is alert and oriented, no focal loss of strength or sensation Skin is without bruises or rashes Psychologically is without concerns for anxiety or depression. 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 She was recently discharged from [facility], Ulcerative Colitis seen on colonoscopy. - Inability to tolerate PO intake led her back for admission - workup on previous hospital admission with negative blood cultures and negative stool micro studies for infectious cause. - COVID was negative in ED. - only remedy is zofran , patient tolerant of diet on 3 times daily ODT Zofran - Gallbladder appeared normal on prior CT. PT refueses HIDA( LFT are normal) - U/s normal liver pancreas gall bladder and 21 mm R renal cyst -[facility]enterology -8 week Prednisone taper on d/c (begin at 40 mg daily x 1 week and decrease by 5 mg weekly thereafter) -Outpatient discussion for Entyvio (given history of breast cancer would avoid Remicade/Humira) - Pepcid 20mg BID. (2) Acute dehydration: replete with ivf, will take p.o. 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 Was ER positive [place] negative. Appears from old records did not need Tamoxifen because of surgical treatment. HX of right sentinel node biopsy of RUE, limb restriction ordered for RUE. (2) Acute dehydration: (3) Hypokalemia: (4) Colitis with rectal bleeding: As per GI Solumedrol currently (5) DCIS (ductal carcinoma in situ): Total Time Total Time Spent Total Time Spent (In Minutes): It required greater than 30 minutes to prepare this patient for discharge Discharge Plan Discharge Items Patient Disposition: Home - Self-Care Reason For Visit: INTRACTABLE VOMITING, HYPOKALEMIA Discharge Diagnosis: ulcerative colitis intractable nausea Condition on Discharge: Good Activity: Per Instructions section Activity Comment: gradually increase diet Non-emergency contact: Primary Care Provider and Vending Machine Technician Call non-emergency contact if: you have any medication questions and your symptoms worsen Follow-up/Referrals: Blaire Lorenzo, [Primary Care Provider] - 06/23/20 8:20 am (You have an appt with your Eran REBOLLAR on Saturday 06/23 at 0820am . Please arrive 15 minutes prior to your appt. It is important that you keep this and all appts, if this appt does not fit in to your schedule, please call [phone] to reschedule. ) Diet: Regular Addtl Attending Provider Instructions: gradually increase your diet, you may consider low fiber for a week or so and move from liquid and soft foods toward solid foods, follow up with Dr Hernandez/Laila Smith PA eat or drink foods that rich in potassium Pending Studies at Discharge: No Stand-Alone Forms: My [facility], Smoking Cessation Medications and DC Order Prescriptions: New ondansetron 4 mg Tablet,Disintegrating 4 mg PO Q8H Qty: 66 RF: 0 famotidine [Pepcid] 20 mg tablet 20 mg PO BID 56 Days Qty: 112 RF: 0 Continued prochlorperazine maleate [Compazine] 10 mg tablet 10 mg PO Q8H PRN (Reason: nausea and vomiting) Qty: 21 RF: 0 pantoprazole 40 mg tablet,delayed release (DR/EC) 40 mg PO DAILY Qty: 30 RF: 1 Changed prednisone 10 mg tablet 10 mg PO UD Qty: 125 RF: 0 Discontinued mesalamine [Lialda] 1.2 gram tablet,delayed release (DR/EC) 4.8 g PO DAILY 56 Days Qty: 224 RF: 1 potassium chloride [Klor-Con] 20 mEq packet 20 meq PO DAILY RF: 0 ondansetron HCl 4 mg tablet 4 mg PO TID PRN (Reason: Nausea And Vomiting) RF: 0 Discharge Orders: Discharge Order (Routine); Ordered 06/17/20 Ordered By: Alejo Vance/Other Patient Handouts: High Potassium Diet Dc Admission Data Admit Date/Time: 06/13/20 23:52 Attending Provider: Alejo Mantilla Admit Provider: Otoniel Lacey Primary Care Provider: Blaire Lorenzo Other Providers: Orlando Langford ; Maninder Hernandez Other Interventions: Discharge Summary Assessment (RN) Last Done: 06/17/20 10:08 Coding Level of Care Code D/C Day Management >30 mins Diagnoses Nausea & vomiting R11.2 Acute dehydration E86.0 Hypokalemia E87.6 Colitis with rectal bleeding K52.9; K62.5 DCIS (ductal carcinoma in situ) D05.10
== END 2020-06-17 11:29 | disposition home or self-care (01) | DRG 387 ==
LOC: ED 19:09 → SUATTDRO 23:52 → 2N 23:52

== ENCOUNTER 2020-07-05 15:26 | Inpatient (IN) ==
--- NOTE | 2020-07-05 15:29 | Emergency Department Note ---
Impression & Plan Acute hemorrhagic colitis, Symptomatic anemia, Hypokalemia, Hypocalcemia, Hypophosphatemia ED Provider Note NAME: CAILIN JENNINGS AGE: 60 SEX: F : 1960 ARRIVES VIA: Ambulance INFORMANT: Patient, ED PROVIDER(S): Terrell An MD Chief Complaint: Weakness HPI: Patient does present with persistent and increasing weakness. The patient states that this began in mid May and the patient has had several visits to the emergency department. The patient states that she did have a recent diagnosis of ulcerative colitis and does have follow-up with GI on July 28. The patient denies fevers, chills, chest pains or shortness of breath. The patient denies any abdominal pain. The patient does not take any blood thinning medications but has noticed some blood in stool primarily only with wiping and it tends to happen most bowel movements. The patient has been having some looser bowel movements. Patient denies any urinary symptoms including hematuria or dysuria. The patient has had decreased appetite but denies any nausea or vomiting. The patient states that she has had stool studies done which only showed that she had ulcerative colitis. Patient does not use any stream or well water and no recent antibiotic use. Patient does not take any blood thinning medications. The patient has been seen several times within the last 30 to 40 days for similar symptoms. The patient's most recent hemoglobin was 9.6 on June 23. Patient had a slightly elevated platelet count 48 at that time with mild hypokalemia with a potassium of 3.4, mild hypokalemia at 135. Kidney function was unremarkable with a BUN and creatinine of 12.6 respectively. Patient did have a low calcium at 7.7. The patient's troponin was undetectable. Patient's urinalysis did show the likelihood of dehydration secondary to ketones in the urine. Patient did have an abdominal CT completed on June 01 showed nonsp ecific colitis and right-sided kidney stones. CT of the chest on June 01 showed no PE or consolidation. The patient did have a subpleural right upper lobe pulmonary nodule and 11 mm right lobe thyroid nodule. Patient had CT angiography of the abdomen pelvis on June 07 which showed persistent wall thickening and likely proctocolitis with no evidence of any issue of the aorta at that time. She did have some moderate narrowing of the proximal celiac and the left gastric artery but likely secondary to the median arcuate ligament and not acute. Patient did have an ultrasound completed on June 15 showed a right-sided renal cyst but ultrasound was normal of the liver pancreas and ga llbladder. The patient did have an EGD and colonoscopy completed by Dr. Hanks on June 09. The colonoscopy did show there is hemorrhoids and pancolitis ulcerative colitis. EGD showed normal esophagus small hiatal hernia and gastritis. The patient was to be on a prednisone taper and Pepcid. ROS: See HPI for pertinent positives and negatives. A total of 10 systems were reviewed and otherwise negative. Past medical history: See below Surgical history: See below Social history: See below Physical Exam: GENERAL: Fatigued in appearance, wearing a mask. EYE EXAM: Normal conjunctiva. PERRL, no anisocoria and EOM's grossly intact w/o pain. NECK: Supple, no nuchal rigidity, no adenopathy, non-tender. No signs of meningismus. LUNGS: Clear to auscultation. Normal chest wall mechanics. HEART: Tachycardic and regular, no MRG. ABDOMEN: Abdomen soft, non-tender, normo-active bowel sounds, no masses, no rebound or guarding. BACK: No CVA TTP. SKIN: No rashes and no bruising. UPPER EXTREMITIES: Upper extremities are grossly normal. LOWER EXTREMITIES: Grossly normal, no edema. NEURO EXAM: A&O x3, cranial nerves II-XII grossly intact, normal speech, moves all 4 extremities on command w/o issue. Differential diagnoses: Infection, dehydration, metabolic abnormality, hypo/hyperglycemia, electrolyte disturbance, anemia, hypoxia, cardiac sources, intracerebral event, toxicologic, neurologic, as well as other pathologies. Course: Patient was seen and evaluated the bedside. Full history physical exam was performed. EKG: Indication: Weakness Normal sinus rhythm, rate of 91, normal SD and QRS, prolonged QTC, normal axis, no ST changes. Imaging Studies: None Cardiac monitoring: An order was placed for continuous cardiac monitoring. The monitor shows a rate of 106 with sinus tachycardia rhythm. MDM: Patient did present with concern for weakness and fatigue. Patient did a b ladder completed along with a [id number] BMP and the patient was given IV fluids. The patient denies any nausea or pain. Her [id number] did show concern for acute anemia and hypokalemia. Follow blood work did show concern for anemia and hypokalemia. The patient also did have hypophosphatemia hypocalcemia. These were ordered for repleted. Second IV was placed. The patient was consented for 2 units of PRBCs. PPI bolus and drip also ordered. I did speak the on-call fur remodeler Dr. Lorenzo he did recommend the patient be given IV methylprednisolone 60 mg daily. I did speak with the patient about her steroid taper and the patient has not been compliant with this as the patient has had difficulty with taking it as it was causing her to vomit. I did speak with the on-call hospitalist, Dr. Davis, and the patient was admitted to the medicine service. Critical Care: I have personally spent 52 minutes of critical care time in direct management of this patient. This includes bedside care, interpretation of diagnostic studies, and testing, discussion with consultants, patient, and family members, and other require inpatient management activities. This 52 minutes is in excess of all separately billable procedures. Past Med/Surg History Medical History Breast cancer Fibroid tumor Surgical History H/O bilateral mastectomy H/O: hysterectomy History of appendectomy History of breast reconstruction Family History Mother Leukemia Breast cancer Father History of open heart surgery Brother Stroke Hypertension Social History Smoking Status: Never smoker Second Hand Exposure: No; Hx Alcohol Use: No Hx Substance Use: No Preferred Language: Georgian Communication Ability: Effective Preparator Required: No Beliefs That Will Affect Care: None Current Living Situation: Spouse Feels Safe at Home: Yes Assistive Devices: None Allergies Allergies Allergy/AdvReac Type Severity Reaction Status Date / Time Penicillins Allergy Intermediate POSSIBLE Verified 07/05/20 16:11 ALLERGY Home Meds Home Medications Medication Instructions Recorded Confirmed pantoprazole 40 mg PO DAILY 06/23/20 07/05/20 cholecalciferol (vitamin D3) 25 mcg PO QDL 07/05/20 07/05/20 [Vitamin D3] vitamin B complex 1 tab PO QDL 07/05/20 07/05/20 Previous Rx's Medication Instructions Recorded famotidine [Pepcid] 20 mg PO BID 56 Days #112 tab 06/17/20 Results & Data (ED) Vital Signs Vital Signs - 24 hr 07/05/20 15:33 07/05/20 15:35 07/05/20 16:00 Temperature 36.9 C Temperature Source Axillary Pulse Rate 106 H 103 H 93 H Pulse Rate from SpO2 Sensor 103 H Respiratory Rate 20 19 13 Blood Pressure 83/68 L 105/67 119/82 Blood Pressure Mean 73 75 97 Pulse Oximetry 94 96 Oxygen Delivery Method Room Air Sepsis Recent Fever Within 48 Hours No Sepsis New/Unexplained Change in Mental Status N/A Sepsis Action Taken by Nursing Physician Notified Home Medications Current Medication List: was personally reviewed by me Laboratory Data Attestation: I reviewed the patient's lab results. Result diagrams: 07/05/20 16:08 07/05/20 16:08 Lab Results 07/05/20 07/05/20 07/05/20 Range/Units 16:08 16:08 16:08 WBC 6.31 (4.8-10.8) K/uL RBC 2.48 L (4.2-5.4) M/uL Hgb 6.8 L* (12.0-16.0) g/dL POC Hgb (12.0-16.0) g/dl Hct 20.7 L* (37-47) % POC Hct (37-47) % MCV 83.5 (80-100) fL MCH 27.4 (25-34) pg MCHC 32.9 (32-36) g/dL RDW Std Deviation 41.7 (36.4-46.3) fL RDW Coeff of Crystal 13.7 (11.5-14.5) % Plt Count 476 H (130-400) K/uL MPV 8.3 (7.4-10.4) fL Immature Gran % (Auto) 0.8 % Neut % (Auto) 83.6 % Lymph % (Auto) 10.8 % [place] % (Auto) 4.6 % Eos % (Auto) 0.2 % Baso % (Auto) 0.0 % Neut # (Auto) 5.28 (1.4-6.5) K/uL Lymph # (Auto) 0.68 L (1.2-3.4) K/uL [place] # (Auto) 0.29 (0.11-0.59) K/uL Eos # (Auto) 0.01 (0-0.5) K/uL Baso # (Auto) 0.00 (0-0.2) K/uL Immature Gran # (Auto) 0.05 H (0.00-0.02) K/uL Toxic Granulation 1+ Dohle Bodies 1+ Polychromasia 1+ POC Sodium (135-144) mmol/L Sodium 128 L (136-145) mmol/L POC Potassium (3.3-5.0) mmol/L Potassium 2.5 L* (3.5-5.1) mmol/L POC Chloride (101-112) mmol/L Chloride 90 L (98-107) mmol/L Carbon Dioxide 31 (21-32) mmol/L POC Total CO2 (24-31) mmol/L Anion Gap 7.0 (3-11) POC Anion Gap (16-25) mmol/L POC BUN (7-18) mg/dl BUN 5 L (7-18) mg/dl Creatinine 0.32 L (0.6-1.2) mg/dl POC Creatinine (0.6-1.3) mg/dl Est Cr Clr Drug Dosing 161.4 ml/min Est GFR ( Amer) 141.2 Est GFR (Non-Af Amer) 121.8 BUN/Creatinine Ratio 14.5 (10-20) Glucose 101 H (70-99) mg/dl POC Glucose (other) (70-99) mg/dl Calcium 7.3 L (8.5-10.1) mg/dl POC Ioniz Calcium Jorge (1.12-1.32) mmol/l Phosphorus 2.0 L (2.5-4.9) mg/dl Magnesium 2.1 (1.8-2.4) mg/dl Total Bilirubin 0.4 (0.2-1) mg/dl AST 8 L (15-37) U/L ALT 11 L (12-78) U/L Alkaline Phosphatase 95 (45-117) U/L Total Protein 5.2 L (6.4-8.2) gm/dl Albumin 1.3 L (3.4-5.0) gm/dl Globulin 3.9 (2.5-4.0) gm/dl Albumin/Globulin Ratio 0.3 L (0.9-2) TSH 0.021 L (0.300-4.500) uIu/ml Free T4 2.04 H (0.8-1.6) ng/dl SARS-CoV-2 Ag (Rapid) (Negative) Crossmatch See Detail 07/05/20 07/05/20 Range/Units 16:16 18:08 WBC (4.8-10.8) K/uL RBC (4.2-5.4) M/uL Hgb (12.0-16.0) g/dL POC Hgb 7.1 L (12.0-16.0) g/dl Hct (37-47) % POC Hct 21 L (37-47) % MCV (80-100) fL MCH (25-34) pg MCHC (32-36) g/dL RDW Std Deviation (36.4-46.3) fL RDW Coeff of Crystal (11.5-14.5) % Plt Count (130-400) K/uL MPV (7.4-10.4) fL Immature Gran % (Auto) % Neut % (Auto) % Lymph % (Auto) % [place] % (Auto) % Eos % (Auto) % Baso % (Auto) % Neut # (Auto) (1.4-6.5) K/uL Lymph # (Auto) (1.2-3.4) K/uL [place] # (Auto) (0.11-0.59) K/uL Eos # (Auto) (0-0.5) K/uL Baso # (Auto) (0-0.2) K/uL Immature Gran # (Auto) (0.00-0.02) K/uL Toxic Granulation Dohle Bodies Polychromasia POC Sodium 125 L (135-144) mmol/L Sodium (136-145) mmol/L POC Potassium 2.5 L* (3.3-5.0) mmol/L Potassium (3.5-5.1) mmol/L POC Chloride 84 L (101-112) mmol/L Chloride (98-107) mmol/L Carbon Dioxide (21-32) mmol/L POC Total CO2 28 (24-31) mmol/L Anion Gap (3-11) POC Anion Gap 16.0 (16-25) mmol/L POC BUN < 3 L (7-18) mg/dl BUN (7-18) mg/dl Creatinine (0.6-1.2) mg/dl POC Creatinine 0.4 L (0.6-1.3) mg/dl Est Cr Clr Drug Dosing ml/min Est GFR ( Amer) Est GFR (Non-Af Amer) BUN/Creatinine Ratio (10-20) Glucose (70-99) mg/dl POC Glucose (other) 106 H (70-99) mg/dl Calcium (8.5-10.1) mg/dl POC Ioniz Calcium Jorge 0.97 L (1.12-1.32) mmol/l Phosphorus (2.5-4.9) mg/dl Magnesium (1.8-2.4) mg/dl Total Bilirubin (0.2-1) mg/dl AST (15-37) U/L ALT (12-78) U/L Alkaline Phosphatase (45-117) U/L Total Protein (6.4-8.2) gm/dl Albumin (3.4-5.0) gm/dl Globulin (2.5-4.0) gm/dl Albumin/Globulin Ratio (0.9-2) TSH (0.300-4.500) uIu/ml Free T4 (0.8-1.6) ng/dl SARS-CoV-2 Ag (Rapid) Negative (Negative) Crossmatch Administered Medications Potassium Chloride (K Ryan / Wtr) 10 meq in 100 mls @ 100 mls/hr IV Q1H LAVERNE Stop: 07/05/20 19:44 Last Admin: 07/05/20 18:14 Dose: 100 mls/hr Documented by: [id number] Discontinued Medications Sodium Chloride (Nss) 500 mls @ 999 mls/hr IV .Q31M LAVERNE Stop: 07/05/20 17:30 Last Infusion: 07/05/20 17:31 Dose: 0 mls/hr Documented by: [id number] Admin: 07/05/20 17:00 Dose: 999 mls/hr Documented by: [id number] Methylprednisolone (Methylprednisolone 125 Mg/2 Ml Vial) 60 mg IV NOW STA Stop: 07/05/20 17:34 Last Admin: 07/05/20 18:15 Dose: 60 mg Documented by: [id number] Potassium Chloride (Potassium Chloride 20 Meq/15 Ml Udc) 20 meq PO NOW STA Stop: 07/05/20 18:07 Last Admin: 07/05/20 18:14 Dose: 20 meq Documented by: [id number] Discharge Plan Visit Data Chief Complaint: Vomiting ED Provider: Terrell An Discharge Problem: Acute hemorrhagic colitis, Symptomatic anemia, Hypokalemia, Hypocalcemia, Hypophosphatemia Forms Stand Alone Forms: [facility] [employer] Prescriptions Prescriptions: No Action vitamin B complex Tablet 1 tab PO QDL RF: 0 cholecalciferol (vitamin D3) [Vitamin D3] 25 mcg (1,000 unit) Tablet 25 mcg PO QDL RF: 0 famotidine [Pepcid] 20 mg tablet 20 mg PO BID 56 Days Qty: 112 RF: 0 pantoprazole 40 mg tablet,delayed release (DR/EC) 40 mg PO DAILY RF: 0
[2020-07-05 16:32] LABS: iSTAT Blood Urea Nitrogen < 3 mg/dl (7-18); iSTAT Carbon Dioxide 28 mmol/L (24-31); iSTAT Chloride 84 mmol/L (101-112); iSTAT Creatinine 0.4 mg/dl (0.6-1.3); iSTAT Glucose 106 mg/dl (70-99); iSTAT Hematocrit 21 % (37-47); iSTAT Hemoglobin 7.1 g/dl (12.0-16.0); iSTAT Ionized Calcium 0.97 mmol/l (1.12-1.32); iSTAT Potassium 2.5 mmol/L (3.3-5.0); iSTAT Sodium 125 mmol/L (135-144)
[2020-07-05] MEDS ORDERED: SODIUM CHLORIDE 0.9% 500 ML IV SCH (17:00)
[2020-07-05 17:25] LABS: Hematocrit (blood only) 20.7 % (37-47); Hemoglobin 6.8 g/dL (12.0-16.0); Mean Corpuscular Hemoglobin 27.4 pg (25-34); Mean Corpuscular Hgb Conc 32.9 g/dL (32-36); Mean Corpuscular Volume 83.5 fL (80-100); Mean Platelet Volume 8.3 fL (7.4-10.4); Platelet Count 476 K/uL (130-400); RDW Coefficient of Variation 13.7 % (11.5-14.5); RDW Standard Deviation 41.7 fL (36.4-46.3); Red Blood Count 2.48 M/uL (4.2-5.4); White Blood Count 6.31 K/uL (4.8-10.8)
[2020-07-05] MEDS ORDERED: PANTOprazole 80 MG in DEXTROSE 5% 100 ML IV ONE (17:31)
[2020-07-05] MEDS ORDERED: SODIUM CHLORIDE 0.9% 250 ML IV PRN ×2 (17:31→20:34)
[2020-07-05] MEDS ORDERED: PANTOPRAZOLE BOLUS/DRIP 1 EA IV STA (17:31)
[2020-07-05] MEDS ORDERED: methylPREDNISolone 125 MG/2 ML VIAL IV STA (17:33)
[2020-07-05 17:35] LABS: Albumin Level 1.3 gm/dl (3.4-5.0); BUN Creatinine Ratio 14.5 (10-20); Calcium 7.3 mg/dl (8.5-10.1); Creatinine Clr Calc Pharmacy 161.4 ml/min; Est GFR (African American) 141.2; Est GFR (Non-African American) 121.8; Magnesium 2.1 mg/dl (1.8-2.4); Potassium 2.5 mmol/L (3.5-5.1)
[2020-07-05] MEDS ORDERED: CALCIUM GLUCONATE 10% 10 ML VIAL IV STA (17:36)
[2020-07-05] MEDS ORDERED: POTASSIUM CHLORIDE CRTAB 20 MEQ TABCR PO STA (17:36)
[2020-07-05 17:40] LABS: Albumin Globulin Ratio 0.3 (0.9-2); Bilirubin,Total 0.4 mg/dl (0.2-1); Globulin 3.9 gm/dl (2.5-4.0); Thyroid Stimulating Hormone 0.021 uIu/ml (0.300-4.500); Total Protein 5.2 gm/dl (6.4-8.2)
[2020-07-05] MEDS ORDERED: POTASSIUM CHLORIDE 20 MEQ/15 ML UDC PO STA (18:06)
[2020-07-05] MEDS ORDERED: POT PHOSPHATE MONOBASIC W/ SOD TAB PO STA (18:06)
[2020-07-05 18:07] LABS: T4 Free Thyroxine 2.04 ng/dl (0.8-1.6)
[2020-07-05 18:08] LABS: Dohle Bodies 1+; Eosinophils # (auto) 0.01 K/uL (0-0.5); Eosinophils % (auto) 0.2 %; Immature Granulocytes # (auto) 0.05 K/uL (0.00-0.02); Immature Granulocytes % (auto) 0.8 %; Lymphocytes # (auto) 0.68 K/uL (1.2-3.4); Lymphocytes % (auto) 10.8 %; Monocytes # (auto) 0.29 K/uL (0.11-0.59); Monocytes % (auto) 4.6 %; Neutrophils # (auto) 5.28 K/uL (1.4-6.5); Neutrophils % (auto) 83.6 %; Polychromasia 1+; Toxic Granulation 1+
[2020-07-05] MEDS: POTASSIUM CHLORIDE / WTR 10 MEQ/100 ML PLCT IV SCH ×2 (18:14→19:24)
[2020-07-05] MEDS ORDERED: CALCIUM GLUCONATE 10% 2,000 MG in SODIUM CHLORIDE 0.9% 50 ML IV ONE (19:00)
[2020-07-05] MEDS: PANTOprazole 40 MG in DEXTROSE 5% 100 ML IV SCH ×2 (19:08→22:23)
--- NOTE | 2020-07-05 20:17 | History & Physical Report ---
Date of Service July 05, 2020 Assessment & Plan (1) Symptomatic anemia: Transfuse 2 units and repeat H&H 2 hours following transfusion. (2) Acute hemorrhagic colitis: Suspected cause of acute blood loss anemia. Consult gastroenterology. (3) Acute blood loss anemia: Gastritis noted on prior EGD however suspect more likely from her ulcerative pancolitis. Continue pantoprazole bolus and IV drip. Continue famotidine 20 mg IV twice daily. Transfusions as above. (4) Ulcerative pancolitis: Suspect recurrence of this given she has been off steroids. Will restart on Solu-medrol 60mg IV daily (5) Generalized weakness: Secondary to ulcerative colitis and acute blood loss. (6) Dehydration: IV NSS + KCl as maintenance pending blood tranfusions. (7) Hypokalemia: Secondary to diarrhea from ulcerative colitis and unable to take oral steroids. Replacement in emergency room with 20 meq IV and 20 meq p.o. Continue replacement with NSS + 40 meq KCl Repeat with a.m. labs (8) Hypophosphatemia: Replaced in ER. Monitor Q2D (9) Thyroid nodule: 11mm thyroid nodule on prior scans. Noted hyperthyroid on labs - suspect painless thyroiditis as previously normal in June - repeat as outpatient in 4-6 weeks. Will need iodine radio-uptake scan as outpatient. (10) DVT prophylaxis: SCDs. Chemical prophylaxis contraindicated. Admission and Anticipated Discharge Date Admission Date: Jul 05, 2020 History of Present Illness Chief Complaint: Generalized weakness Primary Care Provider: DO Shivani Patel Akilah is a 60 year old female with recently diagnosed ulcerative colitis and gastritis. This was recently diagnosed with ulcerative colitis on colonoscopy in June 2020. This was treated with IV solu-medrol during her admission in early June but returned three days after discharge for nausea and vomiting. After subsequent discharge on a prednisone taper on June 17 she reports her nausea and vomiting returned at home and although she has been able to take her pantoprazole and pepcid she was unable to take her prednisone (thinks due to the taste would make her gag). She reports ongoing loose stool with occasional blood which hasn't been getting any better or worse since discharge in June. No melena. She denies ever having any abdominal pain. She denies odynophagia or food getting stuck. Ongoing nausea and vomiting similar to prior admissions. In the ER she was noted to be significantly anemic with Hgb 6.8 from 9.6 in June. She denies any chest pain or shortness of breath but is dizzy on standing at home which has been getting worse over the past few days. She was also noted to be hypokalemic which was replaced with IV and PO potassium chloride. 2 units of blood have been ordered and are pending at the time of admission. She was referred to medicine for admission and ongoing management of symptomatic anemia. Allergies Allergy/AdvReac Type Severity Reaction Status Date / Time Penicillins Allergy Intermediate POSSIBLE Verified 07/05/20 16:11 ALLERGY Home Medications Medication Instructions Recorded Confirmed Type famotidine [Pepcid] 20 mg PO BID 56 Days #112 tab 06/17/20 07/05/20 Rx pantoprazole 40 mg PO DAILY 06/23/20 07/05/20 History cholecalciferol (vitamin D3) 25 mcg PO QDL 07/05/20 07/05/20 History [Vitamin D3] vitamin B complex 1 tab PO QDL 07/05/20 07/05/20 History Past Med/Surg History Medical History Breast cancer Fibroid tumor Surgical History H/O bilateral mastectomy H/O: hysterectomy History of appendectomy History of breast reconstruction Family History Mother Leukemia Breast cancer Father History of open heart surgery Brother Stroke Hypertension Social History Smoking Status: Never smoker Second Hand Exposure: No; Do You Dip or Chew Tobacco: No; Tobacco Cessation Education Requested by Patient: No Hx Alcohol Use: No Hx Substance Use: No Preferred Language: Chinese Communication Ability: Effective Instrumentation Technician Required: No Beliefs That Will Affect Care: None Current Living Situation: Spouse Other Information That Helps Us Care for You: No Feels Safe at Home: Yes Safety Concerns: Feels Safe At This Time Assistive Devices: None Review of Systems Review of Systems: All systems reviewed & are unremarkable except as noted in HPI & below Physical Exam Constitutional: + ill appearing, + thin and + frail appearing; + not well nourished and no acute distress Eyes: + conjunctival abnormality (pale) ENMT: external ear and nose normal, oropharynx normal Neck: trachea midline Thyroid: normal thyroid; no thyroid mass (noted prior 11mm right nodule on imaging unable to palpate, non-tender) Respiratory: normal respiratory effort, lungs clear to auscultation Cardiovascular: RRR, no murmur, no edema Gastrointestinal (Abdomen): Inspection/Auscultation: abdomen normal to inspection and + hyperactive bowel sounds Percussion/Palpation: abdomen soft; abdomen nontender, no guarding and abdomen not rigid Musculoskeletal: no cyanosis or clubbing, extremities motor strength 5/5 Skin: no rashes, warm and dry Neurologic: moves all extremities and awake; no focal motor deficits and not confused Speech / Cognition: normal speech Motor/Sensory: no tremor Psychiatric: A+Ox3, euthymic affect Results & Data Results & Data ([facility]) Vital Signs (Past 12 Hours) Vital Signs Temp Pulse Resp BP Pulse Ox 07/05/20 19:30 97 H 13 110/65 96 07/05/20 19:00 104 H 24 111/66 100 07/05/20 18:30 103 H 21 103/67 07/05/20 18:00 96 H 16 105/65 07/05/20 17:30 94 H 16 106/65 07/05/20 17:00 88 14 115/63 07/05/20 16:30 96 H 13 111/70 07/05/20 16:00 93 H 13 119/82 07/05/20 15:35 103 H 19 105/67 96 07/05/20 15:33 36.9 C 106 H 20 83/68 L 94 ECG Indication: other (hypokalemia) Rate (beats per minute): 91 Rhythm: normal sinus Findings: + prolonged QT (QTc 514); no nonspecific-ST abn Comparison ECG Date: from Change: no significant change Code Status & VTE Plan Code Status Full VTE Prophylaxis Plan VTE Prophylaxis will be ordered: Yes Reason for no VTE drug order: Contraindicated PG Care Time/CCT Total # of Minutes Spent Total Time Spent with Patient: Total time spent is greater than 50% in coordination of care (as documented) at patient's floor/unit and/or counseling patient: Coding Level of Care Code 06608 Initial Inpt Care Lvl 3 Diagnoses Symptomatic anemia D64.9 Acute hemorrhagic colitis K52.9 Acute blood loss anemia D62 Ulcerative pancolitis K51.00 Generalized weakness R53.1 Dehydration E86.0 Hypokalemia E87.6 Hypophosphatemia E83.39 Thyroid nodule E04.1 DVT prophylaxis Z29.9
[2020-07-05] MEDS ORDERED: ONDANSETRON INJ 2 MG/ML 2 ML VIAL IV PRN (20:34)
[2020-07-05] MEDS ORDERED: ACETAMINOPHEN 325 MG TAB PO PRN (20:34)
[2020-07-05] MEDS: POTASSIUM CHLORIDE 40 MEQ in SODIUM CHLORIDE 0.9% 1000ML 1,000 ML IV SCH (21:24)
[2020-07-05 21:45] LABS: Appearance Urine Cloudy (Clear); Bacteria Urine Automated 2+ (Negative); Bilirubin Urine Negative (Negative); Blood Urine 3+ (Negative); Color Urine Yellow; Epithelial Cell Urine Auto >30 /lpf (0-5); Glucose Urine UA Negative (Negative); Ketones Urine 1+ (Negative); Leukocyte Esterase Urine 3+ (Negative); Nitrite Urine Negative (Negative); Specific Gravity Urine 1.009 (1.000-1.030); Urobilinogen Urine Negative (Negative); WBC Urine Automated >30 /hpf (0-5)
[2020-07-05 21:46] LABS: Protein Urine Trace (Negative)
[2020-07-05] MEDS: FAMOTIDINE 20 MG in SYRINGE 3 ML IV SCH (21:59)
[2020-07-05 23:37] LABS: Hematocrit (blood only) 17.7 % (37-47); Hemoglobin 5.8 g/dL (12.0-16.0)
[2020-07-06] MEDS: PANTOprazole 40 MG in DEXTROSE 5% 100 ML IV SCH ×5 (03:15→23:45)
[2020-07-06 05:33] LABS: Hematocrit (blood only) 18.1 % (37-47); Hemoglobin 5.9 g/dL (12.0-16.0); Mean Corpuscular Hemoglobin 27.4 pg (25-34); Mean Corpuscular Hgb Conc 32.6 g/dL (32-36); Mean Corpuscular Volume 84.2 fL (80-100); Mean Platelet Volume 7.9 fL (7.4-10.4); Platelet Count 392 K/uL (130-400); RDW Coefficient of Variation 14.1 % (11.5-14.5); Red Blood Count 2.15 M/uL (4.2-5.4); White Blood Count 4.68 K/uL (4.8-10.8)
[2020-07-06 05:48] LABS: BUN Creatinine Ratio 14.2 (10-20); Blood Urea Nitrogen 4 mg/dl (7-18); Calcium 7.2 mg/dl (8.5-10.1); Carbon Dioxide 30 mmol/L (21-32); Chloride 99 mmol/L (98-107); Creatinine Clr Calc Pharmacy 206.6 ml/min; Est GFR (African American) > 150.0; Est GFR (Non-African American) 132.1; Glucose 124 mg/dl (70-99); Potassium 3.4 mmol/L (3.5-5.1); Sodium 134 mmol/L (136-145)
[2020-07-06 05:51] LABS: Dohle Bodies 1+; Immature Granulocytes # (auto) 0.02 K/uL (0.00-0.02); Immature Granulocytes % (auto) 0.4 %; Lymphocytes # (auto) 0.38 K/uL (1.2-3.4); Lymphocytes % (auto) 8.1 %; Monocytes # (auto) 0.11 K/uL (0.11-0.59); Monocytes % (auto) 2.4 %; Neutrophils # (auto) 4.17 K/uL (1.4-6.5); Neutrophils % (auto) 89.1 %
[2020-07-06] MEDS: POTASSIUM CHLORIDE 40 MEQ in SODIUM CHLORIDE 0.9% 1000ML 1,000 ML IV SCH (06:12)
[2020-07-06] MEDS: FAMOTIDINE 20 MG in SYRINGE 3 ML IV SCH ×2 (08:08→21:05)
[2020-07-06] MEDS: methylPREDNISolone 60 MG in SYRINGE 0 ML IV SCH (08:08)
[2020-07-06] MEDS ORDERED: methylPREDNISolone 60 MG in SYRINGE 0 ML IV SCH (09:00)
--- NOTE | 2020-07-06 09:08 | Anesthesiology Consultation ---
Date of Service July 06, 2020 Assessment & Plan (1) Encounter for pre-operative examination: Chart Review Chart Review: Pending: Refer to Additional Notes / Consult section (patient being transfused) History Surgery Operation Date: 07/06/20 10:30 Proposed Procedures p Esophagogastroduodenoscopy Dr. Loren Pimentel MD Height/Weight Height: 5 ft 4 in Weight: 55.4 kg Allergies Allergy/AdvReac Type Severity Reaction Status Date / Time Penicillins Allergy Intermediate POSSIBLE Verified 07/05/20 16:11 ALLERGY Medications Home Medications Medication Instructions Recorded Confirmed Last Taken famotidine [Pepcid] 20 mg PO BID 56 Days #112 tab 06/17/20 07/05/20 07/05/20 pantoprazole 40 mg PO DAILY 06/23/20 07/05/20 07/05/20 cholecalciferol (vitamin D3) 25 mcg PO QDL 07/05/20 07/05/20 07/05/20 [Vitamin D3] vitamin B complex 1 tab PO QDL 07/05/20 07/05/20 07/05/20 Active Medications Generic Name Dose Route Start Last Admin Trade Name Freq PRN Reason Stop Dose Admin Pantoprazole Sodium 40 mg/ 100 mls @ 20 mls/hr 07/05/20 17:46 07/06/20 08:15 Dextrose IV 08/04/20 17:45 8 mg/hr Q5H LAVERNE 20 mls/hr Administration 8 MG/HR Famotidine 20 mg/ Syringe 5 mls @ 2.5 mls/min 07/05/20 21:00 07/06/20 08:08 IV 08/04/20 20:59 2.5 mls/min BID LAVERNE Administration Potassium Chloride 40 meq/ 1,020 mls @ 100 mls/hr 07/05/20 21:00 07/06/20 06:12 Sodium Chloride IV 07/06/20 17:23 100 mls/hr .[id number] LAVERNE Administration Methylprednisolone 60 mg/ 0.96 mls @ 1.5 mls/min 07/06/20 09:00 07/06/20 08:08 Syringe IV 08/05/20 08:59 1.5 mls/min QAM LAVERNE Administration Past Medical History Medical History Breast cancer Fibroid tumor Past Family History Family History Mother Leukemia Breast cancer Father History of open heart surgery Brother Stroke Hypertension Past Surgical History Surgical History H/O bilateral mastectomy H/O: hysterectomy History of appendectomy History of breast reconstruction Social History Smoking Status: Never smoker Do You Dip or Chew Tobacco: No Hx Alcohol Use: No Hx Substance Use: No substance use type: does not use Physical Exam Vital Signs Last Vital Signs Temp 36.8 C 07/06/20 07:38 Pulse 87 07/06/20 07:38 Resp 16 07/06/20 07:38 BP 99/63 L 07/06/20 07:38 Pulse Ox 98 07/06/20 07:38 Testing Laboratory Results 07/06/20 04:37 07/06/20 04:37 Urine Color Yellow 07/05/20 21:30 Urine Appearance Cloudy (Clear) A 07/05/20 21:30 Urine pH 8.0 (4.5-7.5) H 07/05/20 21:30 Ur Specific [place] 1.009 (1.000-1.030) 07/05/20 21:30 Urine Protein Trace (Negative) H 07/05/20 21:30 Urine Glucose (UA) Negative (Negative) 07/05/20 21:30 Urine Ketones 1+ (Negative) H 07/05/20 21:30 Urine Nitrite Negative (Negative) 07/05/20 21:30 Ur Leukocyte Esterase 3+ (Negative) H 07/05/20 21:30 Urine WBC (Auto) >30 /hpf (0-5) H 07/05/20 21:30 Urine RBC (Auto) 5-10 /hpf (0-4) H 07/05/20 21:30 U Hyaline Cast (Auto) 1-5 /lpf (0-5) 07/05/20 21:30 U Epithel Cells (Auto) >30 /lpf (0-5) H 07/05/20 21:30 Urine Bacteria (Auto) 2+ (Negative) H 07/05/20 21:30 Blood Type O Positive 07/05/20 16:08 Antibody Screen POSITIVE A 07/05/20 16:08 07/05/20 21:30 Urine Culture - Preliminary Urine,Clean Catch Escherichia coli Electrocardiogram Date: 07/05/20 Findings: + NSR @ (91) Prolonged QT
[2020-07-06] MEDS ORDERED: PANTOprazole 40 MG in SYRINGE 0 ML IV SCH (09:15)
[2020-07-06 09:31] LABS: Influenza A virus by PCR Negative (Neg); Influenza B virus by PCR Negative (Neg); RSV by PCR Negative (Neg); SARS CoV2 RNA(COVID-19) InHosp NEGATIVE (Negative)
--- NOTE | 2020-07-06 09:33 | Gastrointestinal Consultation ---
Date of Consultation July 06, 2020 Assessment & Plan (1) Acute blood loss anemia: -Continue Protonix gtt -Continue to monitor H/H -Transfuse 2 units PRBCs today -Clear liquids today, keep NPO after midnight -EGD on 07/07/2019 Present on Admission?: Yes (2) Ulcerative pancolitis: -Ok to continue IV steroids at present (40 mg daily) -On discharge, switch to Uceris 9 mg po x total of 8 weeks; discontinue P rednisone -Initiate Mesalamine 2.4 gm BID for now, likely to need biologic therapy as outpatient. -Outpatient follow-up as planned Supervising Physician Co-Signing Physician Notes I personally evaluated the patient and agree with the findings as documented by Laila Smith, PAC Exam: abd: soft, nt, nd History of Present Illness Reason for Consultation: Anemia Attending Physician: Trevor North DO History of Present Illness Patient is a 60 yo female who presents to [facility] with weakness. She was recently diagnosed with Ulcerative Colitis. She was discharged home on a Prednisone taper. Unfortunately, she notes that while this has improved her bowel habits and abdominal pain, she has noted that she has become very ill when taking it. She notes that she feels like she is going to vomit after each dose. This has been relieved with Pepcid & Protonix 40 mg daily. She has recently stopped taking the Prednisone for this reason. She reports improvement of her bloody stools and has not noted melena or hematemesis. She denies epigastric pain at present. She has not had a recent EGD. No pertinent family history. H/H was notably low upon presentation to the ED at 5.9/18.1. BUN/Cr low. Patient reports poor po intake. COVID19 testing pending. Allergies Allergy/AdvReac Type Severity Reaction Status Date / Time Penicillins Allergy Intermediate POSSIBLE Verified 07/05/20 16:11 ALLERGY Home Medications Medication Instructions Recorded Confirmed Type famotidine [Pepcid] 20 mg PO BID 56 Days #112 tab 06/17/20 07/05/20 Rx pantoprazole 40 mg PO DAILY 06/23/20 07/05/20 History cholecalciferol (vitamin D3) 25 mcg PO QDL 07/05/20 07/05/20 History [Vitamin D3] vitamin B complex 1 tab PO QDL 07/05/20 07/05/20 History Patient History Medical History Breast cancer Fibroid tumor Surgical History H/O bilateral mastectomy H/O: hysterectomy History of appendectomy History of breast reconstruction Family History Mother Leukemia Breast cancer Father History of open heart surgery Brother Stroke Hypertension Social History Smoking Status: Never smoker Second Hand Exposure: No; Do You Dip or Chew Tobacco: No; Tobacco Cessation Education Requested by Patient: No Hx Alcohol Use: No Hx Substance Use: No Preferred Language: Lebanese Communication Ability: Effective Can Washer Required: No Beliefs That Will Affect Care: None Current Living Situation: Spouse Other Information That Helps Us Care for You: No Feels Safe at Home: Yes Safety Concerns: Feels Safe At This Time Assistive Devices: None Review of Systems Constitutional: + fatigue and + weakness; no fever and no chills Eyes: no problem reported Respiratory: no cough and no dyspnea Cardiovascular: no chest pain Gastrointestinal: + nausea, + vomiting, + blood in stools (improving from previous hospitalization) and + melena; no abdominal pain Integumentary: no rash Psychiatric: no problem reported Endocrine: no problem reported Hematologic / Lymphatic: no unexplained weight loss Physical Exam Constitutional: well developed Eyes: no conjunctival abnormality Neck: normal visual inspection Respiratory: normal respiratory effort Cardiovascular: Extremities: no edema Gastrointestinal (Abdomen): Inspection/Auscultation: abdomen normal to inspection Percussion/Palpation: abdomen nontender Musculoskeletal: Head/Neck/Chest: normocephalic Skin: no rashes, warm and dry Psychiatric: A+Ox3, euthymic affect Results & Data ([facility]) Vital Signs (Past 12 Hours) Vital Signs Temp Pulse Resp BP Pulse Ox 07/06/20 07:38 36.8 C 87 16 99/63 L 98 07/06/20 04:06 36.7 C 87 17 96/65 L 92 07/06/20 02:00 37.0 C 88 19 102/70 96 07/05/20 23:35 37.0 C 92 H 17 97/66 L 97 PG Care Time/CCT Total # of Minutes Spent Total Time Spent with Patient: Total time spent is greater than 50% in coordination of care (as documented) at patient's floor/unit and/or counseling patient: Coding Level of Care Code 47569 Inpt Consult Level 4 Diagnoses Acute blood loss anemia D62 Ulcerative pancolitis K51.00
--- NOTE | 2020-07-06 09:46 | Electrocardiogram Report ---
Test Reason : Blood Pressure : / mmHG Vent. Rate : 091 BPM Atrial Rate : 091 BPM P-R Int : 154 ms QRS Dur : 086 ms QT Int : 418 ms P-R-T Axes : 077 076 061 degrees QTc Int : 514 ms Normal sinus rhythm Prolonged QT Abnormal ECG When compared with ECG of 23-JUN-2020 09:57, No significant change was found Confirmed by Fritz Raphael ([id number]) on 07/06/2020 9:46:42 AM Referred By: REFERRED SELF Confirmed By:Fritz Raphael
--- NOTE | 2020-07-06 10:02 | Hospitalist Progress Note ---
Date of Service July 06, 2020 Assessment & Plan (1) Acute blood loss anemia: Shivani Isbell is a 60yo female with a history of ulcerative colitis who presents with acute blood loss anemia. Receiving 2u pRBC at this time. Acute blood loss anemia, ulcerative colitis -likely due to hemorrhagic colitis, patient with recent dx of ulcerative colitis, recently off steroids -hemodynamically stable although pressures have been on the softer end -Hgb 6.8 on admission, down to 5.8 overnight -2u pRBC transfusion currently being administered -blood type O positive -c/w methylprednisolone 60mg qAM -c/w pantoprazole 40mg IV q5h -c/w NSS 250mL q16h -per GI recommendations: -NPO after midnight per GI recommendations with EGD to follow on 07/07/2019 -upon discharge, switch to uceris 9mg PO for a total of 8 weeks; discontinue prednisone -meselamine 2.4mg PO bid with likely switch to biologic therapy as outpatient UTI -patient experiencing pelvic pressure without other urinary symptoms -UA with 3+ blooed, 3+ leuk esterase, WBC>30 -culture grew E. coli -started nitrofurantoin 100mg bid Hypokalemia -potassium 2.6 on admission -likely secondary to diarrhea from UC -replacement in ED with 20mEq IV and 20mEq PO -potassium 3.4 today after repletion -c/w repletion with NSS and KCl 40mEq q10h -BMP qAM Hyponatremia -128 on admission -likely secondary to diarrhea, reduced PO intake -repleted with NSS in ED -134 after repletion -c/w NSS as described above Thyroid nodule, hyperthyroidism -TSH 0.021 on admission. fT4 2.04 -recommend repeating TSH/fT4 after acute illness has passed, likely on an outpatient basis FENGI: regular diet, NSS @ 150mL/hr, NPO after midnight Code status: full code DVT ppx: SCDs Dispo: transfer from tele to med/surg (2) Generalized weakness: (3) Symptomatic anemia: (4) Ulcerative pancolitis: Admission and Anticipated Discharge Date Admission Date: July 05, 2020 Supervising Physician Co-Signing Physician Notes I personally examined the patient and verified all grayson points of history and exam, discussed case, and agree with decision making with Dr Lunsford. didnt' take steroids for long at all after discharge - has trouble taking pills. doesn't think the medicine itself actually upset her stomach - more likely just not able to get the pills down without gagging. minimal ongoing diarrhea and no rectal bleeding since this morning vitals noted nad heent nc at mmm breathing unlabored no aaccessory muscles good effort skin no rashes no pallor or icterus acute blood loss anemia related to ongoing UC flare - which in turn was likley related to not tolerating steroids at home. discussed high importance of steroids in initial remission for IBD - that it will be very difficult to reign this in without steroids post discharge --> discussed multiple strategies to try to tolerate PO prednisone - she stated many barriers, but after extensive discussions agreed that small pills possibly in applesauce might be tolerable. will have to try dosing prior to discharge to ensure tolerability. getting 2 units prbc when i see her acute/subacute severe protein calorie malnutrition in the setting of recently diagnosed (and not yet controlled) ulcerative colitis - will need to get IBD under control then work on improving PO intake otherwise as above Subjective Patient seen at bedside this morning. She feels "decent" overall and reports pelvic pressure as well as generalized weakness. Denies pain at this time. Reports soft, frequent stools though she notes an improvement compared to how her BMs were a month ago. Has no other symptoms to report at this time. Understands she will receive a blood transfusion once the correct type of blood arrives. Review of Systems Constitutional: + fatigue; no fever and no chills Respiratory: no cough and no dyspnea on exertion Cardiovascular: no chest pain, no dyspnea and no calf pain Gastrointestinal: no abdominal pain, no nausea and no vomiting Physical Exam Constitutional: no acute distress and not frail appearing Respiratory: normal respiratory effort, lungs clear to auscultation Cardiovascular: RRR, no murmur, no edema Gastrointestinal (Abdomen): normal bowel sounds, soft, nontender, no hepatosplenomegaly Psychiatric: A+Ox3, euthymic affect Results & Data Results & Data ([facility]) Vital Signs (Past 12 Hours) Vital Signs Temp Pulse Pulse Resp BP Pulse Ox 07/06/20 09:56 93 H 07/06/20 07:38 36.8 C 87 16 99/63 L 98 07/06/20 04:06 36.7 C 87 17 96/65 L 92 07/06/20 02:00 37.0 C 88 19 102/70 96 07/05/20 23:35 37.0 C 92 H 17 97/66 L 97 Resident Activity Tracking Resident Involvement: Resident Care Provided Care Provided: Adult Hospital Medicine
[2020-07-06 10:17] LABS: Hematocrit (blood only) 17.7 % (37-47); Hemoglobin 5.8 g/dL (12.0-16.0)
[2020-07-06] MEDS: NITROFURANTOIN MONOHYDRATE 100 MG CAP PO SCH ×2 (15:22→20:59)
--- NOTE | 2020-07-06 17:22 | Billing Data ---
Date of Service July 06, 2020 Coding Level of Care Code 49798 Subseq Hosp Care Lvl 3
[2020-07-06 18:35] LABS: Hematocrit (blood only) 29.5 % (37-47); Hemoglobin 10.1 g/dL (12.0-16.0)
[2020-07-06] MEDS: MESALAMINE 800 MG TABCR PO SCH (20:59)
[2020-07-07] MEDS: PANTOprazole 40 MG in DEXTROSE 5% 100 ML IV SCH ×4 (04:43→19:41)
[2020-07-07 06:45] LABS: Eosinophils # (auto) 0.01 K/uL (0-0.5); Eosinophils % (auto) 0.2 %; Hematocrit (blood only) 26.6 % (37-47); Hemoglobin 9.1 g/dL (12.0-16.0); Immature Granulocytes # (auto) 0.08 K/uL (0.00-0.02); Immature Granulocytes % (auto) 1.4 %; Lymphocytes # (auto) 0.85 K/uL (1.2-3.4); Lymphocytes % (auto) 15.3 %; Mean Corpuscular Hemoglobin 28.7 pg (25-34); Mean Corpuscular Hgb Conc 34.2 g/dL (32-36); Mean Corpuscular Volume 83.9 fL (80-100); Mean Platelet Volume 8.2 fL (7.4-10.4); Monocytes # (auto) 0.37 K/uL (0.11-0.59); Monocytes % (auto) 6.7 %; Neutrophils # (auto) 4.24 K/uL (1.4-6.5); Neutrophils % (auto) 76.4 %; Platelet Count 330 K/uL (130-400); RDW Coefficient of Variation 13.9 % (11.5-14.5); RDW Standard Deviation 42.8 fL (36.4-46.3); Red Blood Count 3.17 M/uL (4.2-5.4); White Blood Count 5.55 K/uL (4.8-10.8)
[2020-07-07 07:16] LABS: BUN Creatinine Ratio 15.9 (10-20); Blood Urea Nitrogen 4 mg/dl (7-18); Calcium 7.5 mg/dl (8.5-10.1); Carbon Dioxide 28 mmol/L (21-32); Chloride 101 mmol/L (98-107); Creatinine Clr Calc Pharmacy 206.6 ml/min; Est GFR (African American) > 150.0; Est GFR (Non-African American) 132.1; Glucose 91 mg/dl (70-99); Potassium 3.5 mmol/L (3.5-5.1); Sodium 132 mmol/L (136-145)
--- NOTE | 2020-07-07 08:19 | History & Physical Bridge Note ---
Date of Service July 07, 2020 History & Physical Bridge Note I have examined the patient, reviewed the History & Physical and in the interval since the performance of the History & Physical I have noted the following changes of clinical significance: no changes noted Proceed with EGD. risks/benefits and procedure discussed with patient, who agrees to proceed
[2020-07-07] MEDS ORDERED: ONDANSETRON INJ 2 MG/ML 2 ML VIAL IV PRN (08:31)
[2020-07-07] MEDS ORDERED: ePHEDrine sulfate 50 MG/ML AMP IV PRN (08:31)
[2020-07-07] MEDS ORDERED: LABETALOL HCL IV 5 MG/ML 20ML IV PRN (08:31)
[2020-07-07] MEDS ORDERED: fentaNYL citrate 100 MCG/2 ML VIAL IV PRN (08:31)
[2020-07-07] MEDS ORDERED: PHENYLEPHRINE 100MCG/ML 5ML SYR IV PRN (08:31)
[2020-07-07] MEDS ORDERED: ATROPINE SULFATE 0.1 MG/ML 10ML SYR IV PRN (08:31)
--- NOTE | 2020-07-07 08:51 | Hospitalist Progress Note ---
Date of Service July 07, 2020 Assessment & Plan (1) Acute blood loss anemia: Shivani Isbell is a 60yo female with a history of ulcerative colitis who presents with acute blood loss anemia. Receiving 2u pRBC at this time. Acute blood loss anemia, ulcerative colitis -likely due to hemorrhagic colitis, patient with recent dx of ulcerative colitis, recently off steroids -hemodynamically stable although pressures have been on the softer end -Hgb 6.8 on admission, down to 5.8 on 07/06, up to 9.1 after transfusion of 2u pRBC on 07/06 -blood type O positive -EGD on 07/07 showed mild gastritis, no source of bleeding noted -c/w methylprednisolone 60mg qAM -c/w pantoprazole 40mg IV q5h -c/w NSS 250mL q16h -per GI recommendations: -clear liquid, advance lactose free diet as tolerated -c/w mesalamine -trend h/h, transfuse Hgb<7 prn -will likely need biologic therapy outpatient UTI -patient experiencing pelvic pressure without other urinary symptoms -UA with 3+ blood, 3+ leuk esterase, WBC>30 -culture grew E. coli -patient refused nitrofurantoin on 07/07; will hold treatment given relative lack of symptoms Hypokalemia -potassium 2.6 on admission -likely secondary to diarrhea from UC -replacement in ED with 20mEq IV and 20mEq PO -potassium 3.4 today after repletion -c/w repletion with NSS and KCl 40mEq q10h -BMP qAM Hyponatremia -128 on admission -likely secondary to diarrhea, reduced PO intake -repleted with NSS in ED -134 after repletion -c/w NSS as described above Thyroid nodule, hyperthyroidism -TSH 0.021 on admission. fT4 2.04 -recommend repeating TSH/fT4 after acute illness has passed, likely on an outpatient basis FENGI: regular diet, NSS @ 150mL/hr, NPO after midnight Code status: full code DVT ppx: SCDs Dispo: transfer from tele to med/surg (2) Generalized weakness: (3) Symptomatic anemia: (4) Ulcerative pancolitis: Admission and Anticipated Discharge Date Admission Date: July 05, 2020 Supervising Physician Co-Signing Physician Notes I personally examined the patient and verified all grayson points of history and exam, discussed case, and agree with decision making with Dr Lunsford. still w fecal urgency. no blood that she knows of. ate - but very quickly had diarrhea after. vitals noted nad heent nc at mmm breathing unlabored no accessory muscles good e ffort skin no rashes no pallor or icterus acute blood loss anemia related to ongoing UC flare - which in turn was likely related to not tolerating steroids at home. anemia improved post 2 units PRBC transfusion. continue IV steroids until bowel symptoms improve then work on transition to PO acute/subacute severe protein calorie malnutrition in the setting of recently diagnosed (and not yet controlled) ulcerative colitis - will need to get IBD under control then work on improving PO intake otherwise as above Subjective Patient was seen at bedside this afternoon. She's feeling better today after receiving her blood transfusion. She had her EGD today and has been on a clear liquid diet since. She has had some tea and broth since, and reports she has a bowel movement about 45 minutes after she takes PO. Endorses weakness although this has not worsened over the past day. Patient has no new complaints. Review of Systems Constitutional: + fatigue; no fever and no chills Respiratory: no cough and no dyspnea Cardiovascular: no chest pain, no palpitations and no lightheadedness Gastrointestinal: no nausea and no vomiting Genitourinary: no dysuria Physical Exam Constitutional: cooperative; no acute distress Results & Data Results & Data ([facility]) Vital Signs (Past 12 Hours) Vital Signs Temp Pulse Resp BP Pulse Ox 07/07/20 08:09 36.7 C 74 16 102/68 96 07/07/20 08:07 36.9 C 81 16 109/73 98 07/06/20 23:17 37.1 C 74 20 107/64 97 07/06/20 22:10 36.7 C 73 16 121/80 97 Resident Activity Tracking Resident Involvement: Resident Care Provided Care Provided: Adult [place]
[2020-07-07] MEDS ORDERED: LIDOCAINE 2% 2 ML VIAL/AMP(20MG/ML) INFIL ONE (09:08)
[2020-07-07] MEDS ORDERED: PROPOFOL IV EMULSION 10 MG/ML 20 ML VIAL IV ONE (09:08)
--- NOTE | 2020-07-07 09:17 | GI REPORT ---
Patient Name: Shivani Isbell Procedure Date: 07/07/2020 8:35 AM Date of : 1960 Admit Type: Inpatient Age: 60 Gender: Female Attending MD: Samuel Pimentel MD Procedure: Upper GI endoscopy Providers: Samuel Pimentel MD Referring MD: Trevor North Indications: Iron deficiency anemia Medicines: Monitored Anesthesia Care Complications: No immediate complications. Estimated blood loss: None. Estimated Blood Loss: Estimated blood loss: none. Procedure: Pre-Anesthesia Assessment: - Prior Anticoagulants: The patient has taken no previous anticoagulant or antiplatelet agents. - ASA Grade Assessment: II - A patient with mild systemic disease. After obtaining informed consent, the endoscope was passed under direct vision. Throughout the procedure, the patient's blood pressure, pulse, and oxygen saturations were monitored continuously. The Endoscope was introduced through the mouth, and advanced to the second part of duodenum. The upper GI endoscopy was accomplished without difficulty. The patient tolerated the procedure well. Findings: The examined esophagus was normal. Diffuse mild inflammation characterized by erythema was found in the gastric antrum. The duodenal bulb and second portion of the duodenum were normal. Impression: - Normal esophagus. - Gastritis. - Normal duodenal bulb and second portion of the duodenum. - No specimens collected. Recommendation: -advance diet as tolerated, lactose free diet -cotinue mesalamine -will likely need biologic therapy for her IBD as an outpatient - [facility] patient to [facility] for [facility] care. Samuel Pimentel MD 07/07/2020 9:16:40 AM This report has been signed electronically. Note Initiated On: 07/07/2020 8:35 AM Number of Addenda: 0 I attest to the content of the Intraoperative Record and orders documented therein, exceptions below {[id number]}
--- NOTE | 2020-07-07 09:18 | Procedure Note ---
Procedure Note Date of Service July 07, 2020 EGD findings: mild gastritis, no active bleeding nor ulcers nor AVMs noted. recs: --advance diet as tolerated, lactose free diet -- continue mesalamine -trend H/H, transfuse prn hgb <7 -will likely need biologic therapy for IBD as an outpatient Samuel Pimentel MD Gastroenterology Coding
--- NOTE | 2020-07-07 09:31 | Anesthesiology Progress Note ---
Date of Service July 07, 2020 Anesthesia Post Procedure Vital Signs Vital Signs: Temp Pulse Pulse Pulse Pulse Resp BP 07/07/20 09:30 36.3 C L 80 13 07/07/20 09:20 75 14 07/07/20 09:11 36.2 C L 93 H 18 07/07/20 08:09 36.7 C 74 16 07/07/20 08:07 36.9 C 81 16 07/06/20 23:17 37.1 C 74 20 07/06/20 22:10 36.7 C 73 16 07/06/20 20:34 36.4 C L 79 18 07/06/20 16:46 36.8 C 81 18 118/80 07/06/20 16:44 36.8 C 81 18 118/80 07/06/20 15:46 36.6 C 75 18 129/86 07/06/20 15:39 61 07/06/20 14:46 36.7 C 80 16 105/72 07/06/20 14:16 36.8 C 79 18 107/73 07/06/20 14:01 36.7 C 86 16 106/72 07/06/20 13:46 36.7 C 83 18 112/77 07/06/20 13:32 36.7 C 83 18 112/77 07/06/20 12:32 36.5 C 95 H 18 97/65 L 07/06/20 11:32 36.8 C 89 16 116/77 07/06/20 11:02 36.8 C 89 18 123/81 07/06/20 10:47 36.6 C 91 H 18 105/69 07/06/20 10:25 36.6 C 81 18 103/70 07/06/20 09:56 93 H BP Pulse Ox 07/07/20 09:30 98/71 L 99 07/07/20 09:20 106/68 98 07/07/20 09:11 99/69 L 100 07/07/20 08:09 102/68 96 07/07/20 08:07 109/73 98 07/06/20 23:17 107/64 97 07/06/20 22:10 121/80 97 07/06/20 20:34 100/68 96 07/06/20 16:46 98 07/06/20 16:44 98 07/06/20 15:46 97 07/06/20 15:39 07/06/20 14:46 96 07/06/20 14:16 96 07/06/20 14:01 96 07/06/20 13:46 96 07/06/20 13:32 96 07/06/20 12:32 99 07/06/20 11:32 93 07/06/20 11:02 95 07/06/20 10:47 96 07/06/20 10:25 97 07/06/20 09:56 Transfer of Care Handoff Completed per policy Notes Mental Status: alert / awake / arousable Patient Amnestic to Procedure: Yes Nausea / Vomiting: adequately controlled Pain: adequately controlled Airway Patency, RR, SpO2: stable & adequate BP & HR: stable & adequate Hydration State: stable & adequate Anesthetic Complications: no major complications apparent and Pt Satisfied with anesthetic care
[2020-07-07] MEDS: MESALAMINE 800 MG TABCR PO SCH ×2 (10:06→21:32)
[2020-07-07] MEDS: FAMOTIDINE 20 MG in SYRINGE 3 ML IV SCH ×2 (10:08→21:31)
[2020-07-07] MEDS: methylPREDNISolone 60 MG in SYRINGE 0 ML IV SCH (10:09)
[2020-07-07] MEDS: NITROFURANTOIN MONOHYDRATE 100 MG CAP PO SCH ×2 (10:12→21:33)
[2020-07-07 12:55] LABS: Hepatitis B Surface Ab Quant 14.78 mIU/mL (>or=10mIU/mL Immune); Hepatitis B Surface Antibody Immune
[2020-07-07 13:05] LABS: Hepatitis B Surf Ag Rflx Conf Neg (Neg)
[2020-07-07 13:34] LABS: Hepatitis C IgG 13Yrs+Old_Rflx Neg (Neg)
--- NOTE | 2020-07-07 18:52 | Billing Data ---
Date of Service July 07, 2020 Coding Level of Care Code 32160 Subseq Hosp Care Lvl 3
[2020-07-08] MEDS: PANTOprazole 40 MG in DEXTROSE 5% 100 ML IV SCH ×2 (00:24→04:59)
[2020-07-08] MEDS: MESALAMINE 800 MG TABCR PO SCH ×2 (07:29→21:15)
[2020-07-08] MEDS: NITROFURANTOIN MONOHYDRATE 100 MG CAP PO SCH ×4 (07:30→21:46)
[2020-07-08] MEDS: methylPREDNISolone 60 MG in SYRINGE 0 ML IV SCH (07:30)
[2020-07-08] MEDS: FAMOTIDINE 20 MG in SYRINGE 3 ML IV SCH (07:32)
[2020-07-08] MEDS ORDERED: PANTOprazole 40 MG TAB PO SCH (09:00)
[2020-07-08 09:15] LABS: Eosinophils # (auto) 0.01 K/uL (0-0.5); Eosinophils % (auto) 0.2 %; Hematocrit (blood only) 29.2 % (37-47); Hemoglobin 9.9 g/dL (12.0-16.0); Immature Granulocytes # (auto) 0.07 K/uL (0.00-0.02); Immature Granulocytes % (auto) 1.1 %; Lymphocytes # (auto) 0.75 K/uL (1.2-3.4); Lymphocytes % (auto) 11.8 %; Mean Corpuscular Hemoglobin 28.6 pg (25-34); Mean Corpuscular Hgb Conc 33.9 g/dL (32-36); Mean Corpuscular Volume 84.4 fL (80-100); Mean Platelet Volume 8.2 fL (7.4-10.4); Monocytes % (auto) 4.7 %; Neutrophils # (auto) 5.25 K/uL (1.4-6.5); Neutrophils % (auto) 82.2 %; Platelet Count 295 K/uL (130-400); RDW Standard Deviation 42.2 fL (36.4-46.3); Red Blood Count 3.46 M/uL (4.2-5.4); White Blood Count 6.38 K/uL (4.8-10.8)
[2020-07-08] MEDS ORDERED: PANTOprazole 40 MG in SYRINGE 0 ML IV SCH (09:30)
[2020-07-08 09:56] LABS: BUN Creatinine Ratio 14.2 (10-20); Blood Urea Nitrogen 3 mg/dl (7-18); Calcium 7.6 mg/dl (8.5-10.1); Carbon Dioxide 29 mmol/L (21-32); Chloride 97 mmol/L (98-107); Creatinine Clr Calc Pharmacy 271.9 ml/min; Est GFR (African American) > 150.0; Est GFR (Non-African American) 144.6; Glucose 84 mg/dl (70-99); Magnesium 2.1 mg/dl (1.8-2.4); Sodium 131 mmol/L (136-145)
[2020-07-08 09:57] LABS: Phosphorus 2.4 mg/dl (2.5-4.9)
[2020-07-08] MEDS: LANSOPRAZOLE 15 MG SOLTAB PO SCH ×2 (10:28→21:15)
--- NOTE | 2020-07-08 13:20 | Hospitalist Progress Note ---
Date of Service July 08, 2020 Assessment & Plan (1) Acute blood loss anemia: Shivani Isbell is a 60yo female with a history of ulcerative colitis who presents with acute blood loss anemia. Hemoglobin stable after receiving 2u pRBC transfusion. Acute blood loss anemia, ulcerative colitis -likely due to hemorrhagic colitis, patient with recent dx of ulcerative colitis, recently off steroids -hemodynamically stable although pressures have been on the softer end -Hgb 6.8 on admission, down to 5.8 on 07/06/2020, up to 9.1 after transfusion of 2u pRBC on 07/06/2020 -blood type O positive -EGD on 07/07 showed mild gastritis, no source of bleeding noted -c/w methylprednisolone 60mg qAM -c/w pantoprazole 40mg IV q5h -per GI recommendations: -clear liquid, advance lactose free diet as tolerated -c/w mesalamine -trend h/h, transfuse Hgb<7 prn -will likely need biologic therapy outpatient -transition to PO meds tomorrow UTI -patient experiencing pelvic pressure without other urinary symptoms -UA with 3+ blood, 3+ leuk esterase, WBC>30 -culture grew E. coli -patient refused nitrofurantoin on 07/07/2020; will hold treatment given relative lack of symptoms Hypokalemia -potassium 2.6 on admission -likely secondary to diarrhea from UC -improved to 3.5 on 07/07/2020; worsened to 3.0 on 07/08/2020 -KCl elixir 40mEq ordered -BMP qAM Hyponatremia -128 on admission -likely secondary to diarrhea, reduced PO intake -repleted with NSS in ED -134 on 07/07/2020 -worsened to 131 on 07/08/2020 -NSS @ 80mL/hr Thyroid nodule, hyperthyroidism -TSH 0.021 on admission. fT4 2.04 -recommend repeating TSH/fT4 after acute illness has passed, likely on an outpatient basis FENGI: regular diet, NSS @ 80mL/hr Code status: full code DVT ppx: SCDs Dispo: med/surg (2) Symptomatic anemia: (3) Ulcerative pancolitis: Admission and Anticipated Discharge Date Admission Date: July 05, 2020 Supervising Physician Co-Signing Physician Notes I personally examined the patient and verified all grayson points of history and exam, discussed case, and agree with decision making with Dr Lunsford. eating better diarrhea better. vitals noted nad heent nc at mmm breathing unlabored no accessory muscles good effort skin no rashes no pallor or icterus. abd soft nd nt no guarding no rebound acute blood loss anemia related to ongoing UC flare - which in turn was likely related to not tolerating steroids at home. anemia improved post 2 units PRBC transfusion. transition to PO meds gastritis - PO PPI acute/subacute severe protein calorie malnutrition in the setting of recently diagnosed (and not yet controlled) ulcerative colitis - will need to get IBD under control then work on improving PO intake otherwise as above Subjective Patient seen at bedside this afternoon. Patient feels a bit better than yesterday. Reports her appetite is returning and was able to tolerate some PO today. Has had four BMs today. Reports a substantial improvement in abdominal pain. Reports anxiety about the plan to transition from IV to PO medications but is willing to try. No new symptoms or complaints to report today. Review of Systems Respiratory: no cough and no dyspnea Cardiovascular: no chest pain Gastrointestinal: no nausea, no vomiting and no constipation Physical Exam Constitutional: cooperative and comfortable; no acute distress and no altered mental status Respiratory: normal respiratory effort, lungs clear to auscultation Cardiovascular: RRR, no murmur, no edema Gastrointestinal (Abdomen): normal bowel sounds, soft, nontender, no hepatosplenomegaly Results & Data Results & Data ([facility]) Vital Signs (Past 12 Hours) Vital Signs Temp Pulse Resp BP Pulse Ox 07/08/20 07:38 36.3 C L 75 14 125/79 96 Resident Activity Tracking Resident Involvement: Resident Care Provided Care Provided: Adult Hospital Medicine
[2020-07-08] MEDS ORDERED: POTASSIUM CHLORIDE 20 MEQ/15 ML UDC PO STA (13:24)
[2020-07-08] MEDS: SODIUM CHLORIDE 0.9% 1,000 ML IV SCH (15:32)
--- NOTE | 2020-07-08 18:10 | Billing Data ---
Date of Service July 08, 2020 Coding Level of Care Code 56599 Subseq Hosp Care Lvl 3
[2020-07-09] MEDS: NITROFURANTOIN MONOHYDRATE 100 MG CAP PO SCH ×2 (04:35→20:40)
[2020-07-09] MEDS ORDERED: SODIUM CHLORIDE 0.9% 1,000 ML IV SCH (05:00)
[2020-07-09 05:16] LABS: Hepatitis A Antibody Total NON-REACTIVE (NON-REACTIVE); Hepatitis B Core Antibody IgM NON-REACTIVE (NON-REACTIVE)
[2020-07-09] MEDS: SODIUM CHLORIDE 0.9% 1,000 ML IV SCH (05:40)
[2020-07-09 07:42] LABS: Eosinophils # (auto) 0.04 K/uL (0-0.5); Eosinophils % (auto) 0.7 %; Hematocrit (blood only) 26.8 % (37-47); Hemoglobin 8.9 g/dL (12.0-16.0); Immature Granulocytes # (auto) 0.07 K/uL (0.00-0.02); Immature Granulocytes % (auto) 1.3 %; Lymphocytes # (auto) 0.83 K/uL (1.2-3.4); Lymphocytes % (auto) 15.1 %; Mean Corpuscular Hemoglobin 28.3 pg (25-34); Mean Corpuscular Hgb Conc 33.2 g/dL (32-36); Mean Corpuscular Volume 85.1 fL (80-100); Mean Platelet Volume 7.8 fL (7.4-10.4); Monocytes # (auto) 0.42 K/uL (0.11-0.59); Monocytes % (auto) 7.6 %; Neutrophils # (auto) 4.15 K/uL (1.4-6.5); Neutrophils % (auto) 75.3 %; Platelet Count 232 K/uL (130-400); RDW Coefficient of Variation 14.2 % (11.5-14.5); RDW Standard Deviation 43.4 fL (36.4-46.3); Red Blood Count 3.15 M/uL (4.2-5.4); White Blood Count 5.51 K/uL (4.8-10.8)
[2020-07-09] MEDS: methylPREDNISolone 60 MG in SYRINGE 0 ML IV SCH (07:47)
[2020-07-09] MEDS: LANSOPRAZOLE 15 MG SOLTAB PO SCH ×2 (07:47→20:37)
[2020-07-09] MEDS: MESALAMINE 800 MG TABCR PO SCH ×2 (07:47→20:38)
[2020-07-09 08:25] LABS: BUN Creatinine Ratio 14.5 (10-20); Blood Urea Nitrogen 4 mg/dl (7-18); Calcium 7.2 mg/dl (8.5-10.1); Carbon Dioxide 27 mmol/L (21-32); Chloride 101 mmol/L (98-107); Creatinine Clr Calc Pharmacy 198.7 ml/min; Est GFR (African American) > 150.0; Est GFR (Non-African American) 130.5; Glucose 81 mg/dl (70-99); Magnesium 1.7 mg/dl (1.8-2.4); Potassium 3.2 mmol/L (3.5-5.1); Sodium 134 mmol/L (136-145)
[2020-07-09 08:36] LABS: Phosphorus 1.7 mg/dl (2.5-4.9)
[2020-07-09] MEDS ORDERED: prednisoLONE 15 MG/5 ML UDP PO SCH ×2 (09:00)
[2020-07-09] MEDS ORDERED: PHENAZOPYRIDINE HCL 200 MG TAB PO SCH (09:00)
[2020-07-09] MEDS ORDERED: POTASSIUM CHLORIDE 20 MEQ/15 ML UDC PO STA (09:22)
[2020-07-09] MEDS ORDERED: ONDANSETRON 4 MG OD TAB PO PRN (09:23)
--- NOTE | 2020-07-09 09:25 | Communication Note ---
Date of Service: July 09, 2020 Patient is a 60 yo female with ulcerative pancolitis and anemia. GI has signed off during this admission, however due to her inability to tolerate po Pred nisone as an outpatient, I would advise that upon discharge, she be sent home with Uceris 9 mg po daily x 8 weeks as this has less side effect potential due to less systemic absorption. She has a follow-up appointment with Dr. Hernandez on 07/14 during which time they can discuss further therapy plans, but likely will require biologic therapy.
[2020-07-09] MEDS: prednisoLONE SYRUP 15 MG/5 ML BTL PO SCH (09:44)
[2020-07-09] MEDS: MAGNESIUM SULFATE / D5W 1 GM/100 ML BAG IV SCH ×2 (10:43→13:00)
[2020-07-09 11:33] LABS: Quantiferon Mitogen-NIL 1.72 IU/mL; Quantiferon NIL 0.04 IU/mL; Quantiferon TB Gold Plus NEGATIVE (NEGATIVE); Quantiferon TB2-NIL <0.00 IU/mL
--- NOTE | 2020-07-09 22:05 | Hospitalist Progress Note ---
Date of Service July 09, 2020 Assessment & Plan (1) Acute blood loss anemia: Shivani Isbell is a 60yo female with a history of ulcerative colitis who presents with acute blood loss anemia. Hemoglobin stable after receiving 2u pRBC transfusion. Acute blood loss anemia, ulcerative colitis -likely due to hemorrhagic colitis, patient with recent dx of ulcerative colitis, recently off steroids -hemodynamically stable although pressures have been on the softer end -Hgb 6.8 on admission, down to 5.8 on 07/06/2020, up to 9.1 after transfusion of 2u pRBC on 07/06/2020, stable since -blood type O positive -EGD on 07/07 showed mild gastritis, no source of bleeding noted -c/w methylprednisolone 60mg qAM -c/w pantoprazole 40mg IV q5h -per GI recommendations: -clear liquid, advance lactose free diet as tolerated -c/w mesalamine -trend h/h, transfuse Hgb<7 prn -will likely need biologic therapy outpatient -transition to PO meds tomorrow UTI -patient experiencing pelvic pressure without other urinary symptoms -UA with 3+ blood, 3+ leuk esterase, WBC>30 -culture grew E. coli -patient refused nitrofurantoin on 07/07/2020 -resumed nitrofurantoin on 07/08/2020 after experiencing urgency and burning with urination, continue 5-7 day course Hypokalemia: stable -likely secondary to diarrhea from UC -tolerating potassium chloride elixir -BMP qAM Hyponatremia -128 on admission -likely secondary to diarrhea and reduced PO intake -repleted with NSS in ED -134 on 07/09/2020 -discontinued NSS as patient is tolerating PO Thyroid nodule, hyperthyroidism -TSH 0.021 on admission. fT4 2.04 -recommend repeating TSH/fT4 after acute illness has passed, likely on an outpatient basis FENGI: regular diet Code status: full code DVT ppx: SCDs Dispo: med/surg, likely discharge on 07/10/2020 (2) Symptomatic anemia: (3) Ulcerative pancolitis: Admission and Anticipated Discharge Date Admission Date: July 05, 2020 Supervising Physician Co-Signing Physician Notes I personally examined the patient and verified all grayson points of history and exam, discussed case, and agree with decision making with Dr Lunsford. tolerating PO well tolerating meds vitals noted nad heent nc at mmm breathing unlabored no accessory muscles good effort skin no rashes no pallor or icterus. acute blood loss anemia related to ongoing UC flare - which in turn was likely related to not tolerating steroids at home. anemia improved post 2 units PRBC transfusion. transitioned to PO meds, follow gastritis - PO PPI acute/subacute severe protein calorie malnutrition in the setting of recently diagnosed (and not yet controlled) ulcerative colitis - will need to get IBD under control then work on improving PO intake otherwise as above Subjective Patient seen at bedside this afternoon. Reports feeling better than yesterday and is happy about continued improvement. Reports longer time between BMs which she is very happy about. Endorses mild gas after eating but improving. Engaging well with PT/OT. Tolerating prednisolone as well as potassium elixir. Patient has no new concerns or complaints today. Denies lightheadedness, dizziness, chest pain, SOB, nausea, vomiting, constipation, or other symptoms. Review of Systems Review of Systems: All systems reviewed & are unremarkable except as noted in HPI & below Physical Exam Constitutional: well groomed, cooperative and comfortable; no acute distress and not ill appearing Respiratory: normal respiratory effort, lungs clear to auscultation Cardiovascular: RRR, no murmur, no edema Gastrointestinal (Abdomen): soft, mildly tender to deep palpation only, BS normoactive Psychiatric: A+Ox3, euthymic affect Results & Data Results & Data ([facility]) Vital Signs (Past 12 Hours) Vital Signs Temp Pulse Resp BP Pulse Ox 07/09/20 15:07 36.5 C 85 20 103/69 96 Resident Activity Tracking Resident Involvement: Resident Care Provided Care Provided: Adult Hospital Medicine
[2020-07-10 07:46] LABS: Hematocrit (blood only) 27.4 % (37-47); Hemoglobin 9.1 g/dL (12.0-16.0); Mean Corpuscular Hemoglobin 28.5 pg (25-34); Mean Corpuscular Hgb Conc 33.2 g/dL (32-36); Mean Corpuscular Volume 85.9 fL (80-100); Mean Platelet Volume 7.9 fL (7.4-10.4); Platelet Count 218 K/uL (130-400); RDW Coefficient of Variation 14.1 % (11.5-14.5); RDW Standard Deviation 43.6 fL (36.4-46.3); Red Blood Count 3.19 M/uL (4.2-5.4); White Blood Count 5.32 K/uL (4.8-10.8)
[2020-07-10 08:22] LABS: BUN Creatinine Ratio 14.6 (10-20); Calcium 7.8 mg/dl (8.5-10.1); Creatinine Clr Calc Pharmacy 161.4 ml/min; Est GFR (African American) 141.2; Est GFR (Non-African American) 121.8; Potassium 3.3 mmol/L (3.5-5.1)
[2020-07-10 08:26] LABS: RBC Morphology Unremarkable
[2020-07-10] MEDS: MESALAMINE 800 MG TABCR PO SCH (09:17)
[2020-07-10] MEDS: prednisoLONE SYRUP 15 MG/5 ML BTL PO SCH (09:18)
[2020-07-10] MEDS: LANSOPRAZOLE 15 MG SOLTAB PO SCH (09:19)
[2020-07-10] MEDS: NITROFURANTOIN MONOHYDRATE 100 MG CAP PO SCH (09:19)
[2020-07-10 09:38] LABS: ALC (manual) 0.21 K/uL (1.2-3.4); ANC (manual) 4.79 K/uL (1.4-6.5); Lymphocytes # (manual) 0.21 K/uL (1.2-3.4); Monocytes # (manual) 0.27 K/uL (0.11-0.59); Myelocytes # (manual) 0.05 K/uL (0-0); Neutrophils # (manual) 4.79 K/uL (1.4-6.5)
--- NOTE | 2020-07-10 17:18 | Discharge Summary ---
Date of Service July 10, 2020 Admission HPI Per Admitting Provider Shivani Isbell is a 60 year old female with recently diagnosed ulcerative colitis and gastritis. This was recently diagnosed with ulcerative colitis on colonoscopy in June 2020. This was treated with IV solu-medrol during her admission in early June but returned three days after discharge for nausea and vomiting. After subsequent discharge on a prednisone taper on June 17 she reports her nausea and vomiting returned at home and although she has been able to take her pantoprazole and pepcid she was unable to take her prednisone (thinks due to the taste would make her gag). She reports ongoing loose stool with occasional blood which hasn't been getting any better or worse since discharge in June. No melena. She denies ever having any abdominal pain. She denies odynophagia or food getting stuck. Ongoing nausea and vomiting similar to prior admissions. In the ER she was noted to be significantly anemic with Hgb 6.8 from 9.6 in June. She denies any chest pain or shortness of breath but is dizzy on standing at home which has been getting worse over the past few days. She was also noted to be hypokalemic which was replaced with IV and PO potassium chloride. 2 units of blood have been ordered and are pending at the time of admission. She was referred to medicine for admission and ongoing management of symptomatic anemia. Admission Exam Per Admitting Provider Constitutional: + ill appearing, + thin and + frail appearing; + not well nourished and no acute distress Eyes: + conjunctival abnormality (pale) ENMT: external ear and nose normal, oropharynx normal Neck: trachea midline Thyroid: normal thyroid; no thyroid mass (noted prior 11mm right nodule on imaging unable to palpate, non-tender) Respiratory: normal respiratory effort, lungs clear to auscultation Cardiovascular: RRR, no murmur, no edema Gastrointestinal (Abdomen): Inspection/Auscultation: abdomen normal to inspection and + hyperactive bowel sounds Percussion/Palpation: abdomen soft; abdomen nontender, no guarding and abdomen not rigid Musculoskeletal: no cyanosis or clubbing, extremities motor strength 5/5 Skin: no rashes, warm and dry Neurologic: moves all extremities and awake; no focal motor deficits and not confused Speech / Cognition: normal speech Motor/Sensory: no tremor Psychiatric: A+Ox3, euthymic affect Principal Diagnosis Acute blood loss anemia, ulcerative colitis Discharge Exam Constitutional + thin, cooperative and comfortable; no acute distress and no altered mental status Respiratory normal respiratory effort, lungs clear to auscultation Cardiovascular RRR, no murmur, no edema Gastrointestinal (Abdomen) abdomen soft, mildly tender, BS normoactive Psychiatric A+Ox3, euthymic affect Discharge Data Allergies Allergy/AdvReac Type Severity Reaction Status Date / Time Penicillins Allergy Intermediate POSSIBLE Verified 07/05/20 16:11 ALLERGY Consultations 07/05/20 17:35 ED Decision to Admit Stat 07/05/20 20:34 Consult Gastroenterology Routine Procedures Performed Operation Date: 07/07/20 08:00 Actual Procedures p Esophagogastroduodenoscopy(Not Applicable) - Samuel Pimentel MD Hospital Course (1) Acute blood loss anemia: Acute blood loss anemia, ulcerative colitis Patient was admitted with abdominal pain, lightheadedness, and weakness thought to be secondary to blood loss from ulcerative colitis in the setting of poor adherence to oral steroid medication regimen. Patient was started on IV steroids and IV fluids. On hospital day two, hemoglobin was found to drop to 5.1, and patient was given two units pRBC with good response. After transfusion patient's hemoglobin was 9.1. Patient's abdominal pain and bowel urgency lessened over the next few days, presumably secondary to reduced inflammation due to steroid administration. GI recommended PO meselamine therapy which patient tolerated well. Patient was slowly transitioned to PO medications which she tolerated we ll. Patient was discharged in stable condition, tolerating all PO medications well, and with close GI follow-up outpatient arranged. (2) Ulcerative pancolitis: Total Time Total Time Spent Total Time Spent (In Minutes): <30 Discharge Plan Discharge Items Patient Disposition: Home - Self-Care Reason For Visit: ACUTE BLOOD LOSS ANEMIA, ULCERATIVE COLITIS FLARE, Discharge Diagnosis: Acute blood loss anemia, ulcerative colitis Activity: Resume your previous activity Non-emergency contact: Primary Care Provider Call non-emergency contact if: you have any medication questions and your symptoms worsen Follow-up/Referrals: Blaire Lorenzo DO [Primary Care Provider] - 07/22/20 12:30 pm (Please arrive at 12:15) Diet: Lactose Intolerant Addtl Attending Provider Instructions: You were admitted for acute blood loss anemia due to ulcerative colitis. You were treated with IV steroids, IV fluids, and a blood transfusion. After we started these treatments, your hemoglobin returned to a safe level, and has remained at a safe level since. The most important thing to do in order to allow your body to heal and prevent another similar episode is to take your medicine every single day. These medicines work to reduce the inflammation that led to bleeding in your gastrointestinal tract. Your GI doctor will work with you on how to maintain control of this inflammation long-term, but for now, it is essential that you continue the medicines we have prescribed. Prednisolone Prednisolone liquid is a steroid used to reduce inflammation in your gastrointestinal tract. You tolerated this medicine very well in the hospital. You need to take 40mg of liquid (about 14mL of liquid, which is about 2.5 teaspoons) every day until you see Dr. Hernandez on 07/14/2020. You can take this medicine all at once, or mix it with another liquid and drink it over the course of a few hours. It isn't medically necessary to take it at any specific time of day, but because steroids can interfere with sleep, we recommend you try to complete your 40mg (13mL which is about 2.5 teaspoons) before noon each day. When you see Dr. Hernandez on 07/14/2020, he will likely adjust this medication by going down on the dose, but he might come up with a different plan. Follow Dr. Hernandez's recommendation. This medicine is normally taken at the current dose (40mg per day) for one week, then decreased to 30mg for one week, then 20mg for a week, then 10mg for a week. We mention this because in the event you aren't able to make it to your appointment with Dr. Hernandez (for example, if there is a snowstorm), call Dr. Hernandez to see what he wants you to do regarding the prednisolone. If you are unable to discuss this with him, after one week of taking 2.5 teaspoons per day, decrease your dose to two teaspoons per day while awaiting further direction from Dr. Hernandez. Prevacid SoluTab Prevacid (lansoprazole) is a medicine to reduce acid in your stomach. This helps reduce irritation in your gastrointestinal tract, which helps with healing. Take this medicine twice daily, once in the morning and once at night. This is a medicine you tolerated very well in the hospital. It is the one that dissolves in your mouth. Meselamine Meselamine is an anti-inflammatory agent that reduces inflammation on the surface of your colon, and is used to treat your ulcerative colitis. It comes in 800mg pills. You must take three of these pills each day. You can take them all at once, or spread them throughout the day. The timing does not matter the important thing is that you have three 800mg pills per day. You tolerated this medicine very well in the hospital. Nitrofurantoin Nitrofurantoin is an antibiotic used to treat your urinary tract infection. It is important to take one 100mg pill twice daily (one in the morning, and one at night) for five more days. You tolerated this medicine very well in the hospital. If you experience a recurrence of symptoms, call your primary care physician. If you experience an emergency, call 911 or go to the nearest emergency department immediately. Thank you for allowing us to participate in your care. Pending Studies at Discharge: No Stand-Alone Forms: [facility] Medications and DC Order Prescriptions: New prednisolone 15 mg/5 mL solution 40 mg PO QAM Qty: 240 RF: 2 nitrofurantoin monohyd/m-cryst 100 mg Capsule 100 mg PO BID 5 Days Qty: 10 RF: 0 mesalamine 800 mg Tablet,Delayed Release (Dr/Ec) 2,400 mg PO BID 30 Days Qty: 180 RF: 1 Continued vitamin B complex Tablet 1 tab PO QDL RF: 0 cholecalciferol (vitamin D3) [Vitamin D3] 25 mcg (1,000 unit) Tablet 25 mcg PO QDL RF: 0 Discontinued famotidine [Pepcid] 20 mg tablet 20 mg PO BID 56 Days Qty: 112 RF: 0 pantoprazole 40 mg tablet,delayed release (DR/EC) 40 mg PO DAILY RF: 0 No Action pantoprazole 40 mg tablet,delayed release (DR/EC) 40 mg PO DAILY Qty: 90 RF: 3 Discharge Orders: Discharge Order (Routine); Ordered 07/10/20 Ordered By: Terrell Vance/Other Patient Handouts: Understanding Colitis Admission Data Admit Date/Time: 07/05/20 18:20 Attending Provider: Trevor North Admit Provider: Collins Davis Primary Care Provider: Blaire Lorenzo Other Providers: Collins Davis ; Maninder Hernandez Other Interventions: Discharge Summary Assessment (RN) Last Done: 07/10/20 12:55 Supervising Physician Co-Signing Physician Notes I personally examined the patient and verified all grayson points of history and exam, discussed case, and agree with decision making with Dr Lunsford. eating well feels good wants to go home vitals noted nad heent nc at mmm breathing unlabored no accessory muscles good effort skin no rashes no pallor or icterus. acute blood loss anemia related to ongoing UC flare - which in turn was likely related to not tolerating steroids at home. anemia improved post 2 units PRBC transfusion. transitioned to PO meds, stable for home gastritis - PO PPI acute/subacute severe protein calorie malnutrition in the setting of recently diagnosed (and not yet controlled) ulcerative colitis - will need to get IBD under control then work on improving PO intake otherwise as above, stable for home tolerating PO regimen well for >1 day Resident Activity Tracking Resident Involvement: Resident Care Provided Care Provided: Adult Hospital Medicine
--- NOTE | 2020-07-10 19:24 | Billing Data ---
Date of Service July 09, 2020 Coding Level of Care Code 52028 Subseq Hosp Care Lvl 2
--- NOTE | 2020-07-10 19:25 | Billing Data ---
Date of Service July 10, 2020 Coding Level of Care Code D/C Day Management <30 mins
== END 2020-07-10 14:20 | disposition home or self-care (01) | DRG 385 ==
LOC: ED 15:26 → 2S 18:20 → SUATTDRO 18:20 → 2S 19:43 → 3W 07-06 16:01